=== PATIENT | male | born 1960 | race Caucasian/White ===

== ENCOUNTER 2019-11-02 11:08 | Outpatient (CLI) | payer BC, SELFPAY ==
--- NOTE | 2019-11-02 11:00 | US_ITS ---
WS: [id number] Complete ABDOMINAL ULTRASOUND HISTORY: abdominal pain COMPARISON: None available. Liver: 22.3 cm in length. Markedly enlarged liver with heterogeneity. Moderate dilatation of the intr ahepatic ducts. Very poorly visualized entire liver. Gallbladder: Normally distended gallbladder. Gallbladder transverse diameter 5.5 cm. Small stones are present in the gallbladder but best seen on real-time imaging. Gallbladder wall thickness: 2.7 mm. Pancreas: Not visualized. CBD: 8.0 mm. Right kidney: 10.2 cm x 5.5 cm x 5.9 cm. No mass, cortical thickening or hydronephrosis. Left kidney: 11.6 cm x 6.4 cm x 4.7 cm. No mass, cortical thickening or hydronephrosis. Spleen: Spleen is top normal size at 12.4 cm in length. Abdominal aorta and IVC are within normal limits. No ascites. Notified ALYSON Braden at 11/02/2019 3:41 PM. US/US abdomen complete* [id number] IMPRESSION: 1. Intrahepatic and extra hepatic bile duct dilatation. 2. Cholelithiasis. Mild gallbladder hydrops. 3. Suspect choledocholithiasis. Recommend MRCP or ERCP. CT abdomen and pelvis will also be helpful to better evaluate the pancreatic head for possible mass.
== END 2019-11-02 11:09 | disposition home or self-care (01) ==
LOC: RAD 11:11
PROVIDERS: PCP Nurse Practitioner; Visit Provider Nurse Practitioner
DX: K80.20 Calculus of gallbladder without cholecystitis without obstruction (principal); K83.8 Other specified diseases of biliary tract
CPT/HCPCS: 36415; 76700; 80053; 80074; 82105; 82150; 83690; 85025

== ENCOUNTER 2019-11-02 21:20 | Emergency (ER) | payer BC, SELFPAY ==
[2019-11-02 21:47] VITALS: BP 124/91; PULSE 92; RESP 19; TEMP 37.1; O2SAT 97; BMI 40.0
--- NOTE | 2019-11-02 22:02 | ED_ITS ---
Entered by Adelita Mcclelland, acting as scribe for Billie Wilkins Nov 02, 2019 21:20 HPI - General Adult General: Chief complaint: General Medical Stated complaint: SENT BY DR WILLIS Time Seen by Provider: 11/02/19 22:03 Source: patient Mode of arrival: ambulatory Limitations: no limitations History of Present Illness: HPI narrative: 59 yo pt came to the er per . Pt states that Dr called and told him to get to the hospital. Pt states that he had an ultrasound for the gallbladder and liver. Patient's had this problem coming up over the past few days. He has been jaundiced at times to the family. He had an outpatient ultrasound which was abnormal and was referred here to the ER. The patient is been referred to Dr. Willis but has not yet seen him. MD complaint: abnormal ultrasound Associated symptoms: Reports nausea; Deny chest pain, confusion, diaphoresis, dyspnea, headache(s), malaise, rash, palpitations, syncope or vomiting Review of Systems General: Reports: other (negative unless marked) Const: Denies: fever, chills, body aches, fatigue, malaise or diaphoresis Eyes: Denies: change in vision or blurry vision ENMT: Denies: throat pain, painful swallowing, hoarseness, ear pain, ear discharge, Change in hearing or nasal discharge Card: Denies: chest pain, palpitations, irregular heart rhythm, syncope, pre- syncope, shortness of breath on exertion or shortness of breath when lying down Resp: Denies: shortness of breath, productive cough, non-productive cough, wheezing, coughing up blood or chest congestion GI: Reports: abdominal pain and nausea; Denies: vomiting, vomiting blood, coffee grounds in vomit, diarrhea, constipation, cramping, blood in stool or black tarry stool : Denies: flank pain, difficulty urinating, painful urination, urinary frequency, urinary urgency, decreased urine ouput, urinary incontinence or blood in urine Musc: Denies: neck pain, back pain, extremity pain, extremity swelling, joint pain, joint swelling, joint warmth or joint stiffness Skin/Breast: Denies: rash, skin tenderness or yellow skin Neuro: Denies: headache, numbness in extremities, weakness in extremities, changes in sensation, lack of coordination, difficulty walking, dizziness, vertigo or confusion Endo: Denies: excessive thirst, tired all the time, cold intolerance, excessive sweating, flushing or hot flashes Judd/Lymph: Denies: easy bruising, easy bleeding, petechiae or enlarged lymph nodes All/Imm: Denies: hives, throat swelling, tongue swelling, facial swelling or acute wheezing PFSH ED PFSH: Statuses (acute, chronic, etc) shown below reflect problem list status as previously entered and may not be historically accurate Social History Smoking and tobacco status: never smoked Second hand smoke exposure: No Alcohol intake: never Desire information about alcohol rehabilitation?: No Counseling given: No Desire information about substance/drug rehabilitation?: No Counseling given: No Physical Exam Const: COMMON NORMALS: no apparent distress, oriented x3, no limitations, healthy appearing and well nourished EXAM LIMITATIONS: no altered mental status GENERAL APPEARANCE: cooperative, well kempt and well developed ORIENTATION/CONSCIOUSNESS: Yes awake HENMT: COMMON NORMALS: normocephalic, head/scalp atraumatic, hearing grossly normal bilaterally, external ears normal, EAC's normal, external nose normal and moist oral mucous membranes HEAD & SCALP: normal to inspection, normocephalic and atraumatic FACE & SINUS: normal facial exam and face symmetric NOSE: external nose normal and nares normal EXTERNAL EAR: Yes external ears normal EXTERNAL AUDITORY CANAL: EAC's normal MOUTH: oral and palatal mucosa normal and tongue normal Eye: COMMON NORMALS: PERRL, EOMs intact bilaterally, conjunctivae normal and no scleral icterus GENERAL EYE: normal appearance of both eyes and normal light reflex CONJUNCTIVA: Yes conjunctivae normal SCLERA: sclera abnormal Laterality of scleral abnormality: positive bilateral scleral icterus CORNEA: Yes corneas normal PUPIL: Yes PERRL DIRECT OPHTHALMOSCOPY: Yes normal light reflex Neck/C-Spine: COMMON NORMALS: full ROM, no lymphadenopathy, supple, no meningeal signs and no JVD GENERAL: Yes normal visual inspection and Yes trachea midline CERVICAL SPINE: Yes cervical ROM normal Chest: COMMONS NORMALS: inspection of chest normal and palpation of chest normal Resp: COMMON NORMALS: normal respiratory effort, no retractions, no use of accessory muscles and clear to auscultation bilaterally EFFORT & INSPECTION: Yes able to speak in complete sentences AUSCULTATION: clear to auscultation bilaterally Cardio: COMMON NORMALS: no JVD, regular rate, regular rhythm, S1 normal heart sound, S2 normal heart sound, no gallops, no clicks, no murmurs and no rub JUGULAR VENOUS DISTENTION: no JVD RATE: regular rate RHYTHM: regular rhythm HEART SOUNDS: S1 normal and S2 normal GI: COMMON NORMALS: soft to palpation and no masses PALPATION: Yes soft and Yes tender Details: RUQ (Mild without rebound or guarding) : COMMON NORMALS: Yes no CVA tenderness BLADDER/KIDNEY EXAM: Yes no CVA tenderness Back/Pelvis: COMMON NORMALS: no CVA tenderness, thoracic and lumbar spine normal to inspection, no thoracic nor lumbar tenderness and thoraco-lumbar ROM normal Extremity: COMMON NORMALS: normal to inspection, full ROM, normal capillary refill, no joint enlargement, no clubbing, cyanosis or edema and no calf tenderness Neuro: COMMON NORMALS: oriented x3, CN's II-XII intact bilaterally, moves all extremities, no focal motor deficits and no sensory deficits noted MENINGEAL SIGNS: Yes no meningeal signs Psych: COMMON NORMALS: mental status grossly normal, thought process normal, cooperative, affect normal, speech normal and activity/motor behavior normal APPEARANCE: Yes well kempt SPEECH: Yes normal speech THOUGHT PROCESS: normal thought process Skin: COMMON NORMALS: no rashes or lesions noted, skin turgor normal, no jaundice, no petechiae and no mottling GENERAL SKIN EXAM: no rashes or lesions noted and turgor normal Course Vital Signs: Vital signs: Vital Signs Temperature 98.7 F 11/02/19 21:47 Pulse Rate 75 11/03/19 01:00 Respiratory Rate 15 11/03/19 01:00 Blood Pressure 118/83 11/03/19 01:00 Pulse Oximetry 96 11/03/19 01:00 MDM - General Adult MDM Narrative: Medical decision making narrative: The case was reviewed with Dr. Willis. He agrees based upon the patient's ultrasound and CT report he will likely need an ERCP and an MRCP is only going to delay that definitive procedure. He recommends transfer. I discussed this with the patient and he would like to go to [facility]. I reviewed the case with Dr. Winter who agrees to accept the patient in transfer. We have covered the patient with Zosyn to prevent ascending cholangitis. He has been hemodynamically stable and we will transfer him. Lab Data: Attestation: I reviewed the patient's lab results. Labs: Lab Results 11/02/19 11/02/19 11/02/19 Range/Units 22:30 22:30 22:30 WBC 7.8 (4.0-10.0) 10^3/ uL RBC 4.06 L (4.1-5.3) 10^6/u L Hgb 12.6 (11.7-16.6) g/dL Hct 36.3 L (42.0-52.0) % MCV 89.4 D (80-94) fL MCH 31.0 (28.0-34.0) pg MCHC 34.7 (30.0-36.0) g/dL RDW 17.2 H (12.1-15.1) % Plt Count 303 (130-400) 10^3/c mm MPV 11.4 H (7.4-10.4) fL Neut % (Auto) 75.9 % Lymph % (Auto) 13.5 % [place] % (Auto) 8.3 % Eos % (Auto) 1.2 % Baso % (Auto) 0.5 % Neut # (Auto) 5.9 (1.8-7.7) 10^3/u L Lymph # (Auto) 1.1 (0.8-4.8) 10^3/u L [place] # (Auto) 0.6 (0.2-0.9) 10^3/u L Eos # (Auto) 0.1 (0.0-0.8) 10^3/u L Baso # (Auto) 0.0 (0.0-0.1) 10^3/u L Nucleated RBC % (a uto) 0 % Nucleated RBCs # 0.0 /100WBC PT 19.90 H (10.5-13.3) SECO NDS INR 1.63 H (0.8-1.2) APTT 38.5 H (23.9-36.7) SECO NDS Sodium 135 L (136-145) mmol/L Potassium 3.6 (3.5-5.1) mmol/L Chloride 100 (98-107) mmol/L Carbon Dioxide 22 (22-29) mmol/L Anion Gap 16.6 (5-19) BUN 19 (8-23) mg/dL Creatinine 0.5 L (0.7-1.2) mg/dL GFR Calculation 169.0 H (90-130) mL/min Glucose 238 H (74-106) mg/dL Lactic Acid (0.5-2.2) mmol/L Calcium 9.7 (8.5-10.5) mg/dL Magnesium 2.3 (1.7-2.3) mg/dL Total Bilirubin 13.4 H* (0.15-1.2) mg/dL AST 98 H (0-40) U/L ALT 105 H (0-41) U/L Alkaline Phosphata se 257 H (40-130) IU/L Total Protein 6.6 (6.6-8.7) g/dL Albumin 3.3 L (3.5-5.2) g/dL Globulin 3.3 (1.3-4.6) g/dL Lipase 146 H (13-60) U/L Ethyl Alcohol < 10 (0-10) mg/dL 11/02/19 Range/Units 22:30 WBC (4.0-10.0) 10^3/ uL RBC (4.1-5.3) 10^6/u L Hgb (11.7-16.6) g/dL Hct (42.0-52.0) % MCV (80-94) fL MCH (28.0-34.0) pg MCHC (30.0-36.0) g/dL RDW (12.1-15.1) % Plt Count (130-400) 10^3/c mm MPV (7.4-10.4) fL Neut % (Auto) % Lymph % (Auto) % [place] % (Auto) % Eos % (Auto) % Baso % (Auto) % Neut # (Auto) (1.8-7.7) 10^3/u L Lymph # (Auto) (0.8-4.8) 10^3/u L [place] # (Auto) (0.2-0.9) 10^3/u L Eos # (Auto) (0.0-0.8) 10^3/u L Baso # (Auto) (0.0-0.1) 10^3/u L Nucleated RBC % (a uto) % Nucleated RBCs # /100WBC PT (10.5-13.3) SECO NDS INR (0.8-1.2) APTT (23.9-36.7) SECO NDS Sodium (136-145) mmol/L Potassium (3.5-5.1) mmol/L Chloride (98-107) mmol/L Carbon Dioxide (22-29) mmol/L Anion Gap (5-19) BUN (8-23) mg/dL Creatinine (0.7-1.2) mg/dL GFR Calculation (90-130) mL/min Glucose (74-106) mg/dL Lactic Acid 1.7 (0.5-2.2) mmol/L Calcium (8.5-10.5) mg/dL Magnesium (1.7-2.3) mg/dL Total Bilirubin (0.15-1.2) mg/dL AST (0-40) U/L ALT (0-41) U/L Alkaline Phosphata se (40-130) IU/L Total Protein (6.6-8.7) g/dL Albumin (3.5-5.2) g/dL Globulin (1.3-4.6) g/dL Lipase (13-60) U/L Ethyl Alcohol (0-10) mg/dL Imaging Data^: CXR: My impression: No acute cardiopulmonary findings. CT Abd/Pel: Radiologist's impression: [place] [address] CT Scan Report Signed Patient: Gavino Ingram Unit #: [id number] : 1960 Age/Sex: 59 / M ADM Date: 11/02/19 Loc: ER Room/Bed: Attending Dr: Ordering Provider/Ordering MD: Billie Wilkins DO Date of Service: 11/02/19 Procedure(s): CT abdomen pelvis w con* [id number] Accession Number(s): [id number] Report Number: [id number] PROCEDURE INFORMATION: Exam: CT Abdomen And Pelvis With Contrast Exam date and time: 11/02/2019 10:13 PM Age: 59 years old Clinical indication: Patient HX: Jaundice, diarrhea x2 wks, gb difficulties; Additional info: Abdominal pain TECHNIQUE: Imaging protocol: Computed tomography of the abdomen and pelvis with intravenous contrast. Total DLP: 1971.27 mGy-cm Radiation optimization: All CT scans at this facility use at least one of these dose optimization techniques: automated exposure control; mA and/or kV adjustment per patient size (includes targeted exams where dose is matched to clinical indication); or iterative reconstruction. Contrast material: OMNIPAQUE 300; Contrast volume: 95 ml; Contrast route: IV; COMPARISON: US abdomen complete* [id number] 11/02/2019 11:19 AM FINDINGS: Liver: Normal. No mass. Gallbladder and bile ducts: Significant dilatation of the intrahepatic biliary tree. The common hepatic duct is dilated up to 15 mm but tapers abruptly at the junction with the common bile duct. The common bile duct is completely decompressed. The cause of obstruction is not clearly evident. This would suggest an occult mass or stricture. The gallbladder is distended but without visible stones or wall thickening. Pancreas: Normal. No ductal dilation. Spleen: Normal. No splenomegaly. Adrenals: Normal. No mass. Kidneys and ureters: Normal. No hydronephrosis. Stomach and bowel: Unremarkable. No obstruction. No mucosal thickening. Appendix: No evidence of appendicitis. Intraperitoneal space: Unremarkable. No free air. No significant fluid collection. Vasculature: Unremarkable. No abdominal aortic aneurysm. Lymph nodes: There are several mildly enlarged portacaval lymph nodes up to 2 cm. No retroperitoneal adenopathy. Bladder: Unremarkable as visualized. Reproductive: Unremarkable as visualized. Bones/joints: Chronic lumbar degenerative disc disease at L3-L4 with mild central stenosis. Soft tissues: Unremarkable. CT/CT abdomen pelvis w con* [id number] IMPRESSION: Significantly dilated biliary tree and common hepatic duct. Transition at the common hepatic-common bile duct junction. Although the cause of obstruction is not directly seen the primary considerations would be a stricture or occult mass. Recommend ERCP for further evaluation. Radiation Dose CTDIVOL = (mGy): DLP = 1971.27 (mGy-cm) Dictated By: Tamara Gan MD Signed By: Tamara Gan MD Signed Date/Time: 11/02/192336 DD/ 34 Discharge Plan Discharge Patient Disposition: Xfer Short-Term Hosp Clinical Impression: Jaundice Condition: Stable Referrals: Fair,Pratima, REFERENCE LIBRARIAN [Primary Care Provider] - Coding Level of Care Code ED Outbound Supervisor for Chg Fwd The documentation recorded by the Stas manley Stephanie Lyn, accurately reflects the service I personally performed and the decisions made by , Billie Wilkins Nov 02, 2019 21:20
--- NOTE | 2019-11-02 22:03 | PC.NURSE ---
pt was called and told to come to the ED tonight after he had an abd ultrasound and bloodwork. He appears jaundiced, his states he is less yellow than normal
[2019-11-02 22:06] VITALS: BP 115/72; PULSE 81; RESP 19; O2SAT 96
--- NOTE | 2019-11-02 22:11 | CTR_ITS ---
PROCEDURE INFORMATION: Exam: CT Abdomen And Pelvis With Contrast Exam date and time: 11/02/2019 10:13 PM Age: 59 years old Clinical indication: Patient HX: Jaundice, diarrhea x2 wks, gb difficulties; Additional info: Abdominal pain TECHNIQUE: Imaging protocol: Computed tomography of the abdomen and pelvis with intravenous contrast. Total DLP: 1971.27 mGy-cm Radiation optimization: All CT scans at this facility use at least one of these dose optimization techniques: automated exposure control; mA and/or kV adjustment per patient size (includes targeted exams where dose is matched to clinical indication); or iterative reconstruction. Contrast material: OMNIPAQUE 300; Contrast volume: 95 ml; Contrast route: IV; COMPARISON: US abdomen complete* [id number] 11/02/2019 11:19 AM FINDINGS: Liver: Normal. No mass. Gallbladder and bile ducts: Significant dilatation of the intrahepatic biliary tree. The common hepatic duct is dilated up to 15 mm but tapers abruptly at the junction with the common bile duct. The common bile duct is completely decompressed. The cause of obstruction is not clearly evident. This would suggest an occult mass or stricture. The gallbladder is distended but without visible stones or wall thickening. Pancreas: Normal. No ductal dilation. Spleen: Normal. No splenomegaly. Adrenals: Normal. No mass. Kidneys and ureters: Normal. No hydronephrosis. Stomach and bowel: Unremarkable. No obstruction. No mucosal thickening. Appendix: No evidence of appendicitis. Intraperitoneal space: Unremarkable. No free air. No significant fluid collection. Vasculature: Unremarkable. No abdominal aortic aneurysm. Lymph nodes: There are several mildly enlarged portacaval lymph nodes up to 2 cm. No retroperitoneal adenopathy. Bladder: Unremarkable as visualized. Reproductive: Unremarkable as visualized. Bones/joints: Chronic lumbar degenerative disc disease at L3-L4 with mild central stenosis. Soft tissues: Unremarkable. CT/CT abdomen pelvis w con* [id number] IMPRESSION: Significantly dilated biliary tree and common hepatic duct. Transition at the common hepatic-common bile duct junction. Although the cause of obstruction is not directly seen the primary considerations would be a stricture or occult mass. Recommend ERCP for further evaluation. Radiation Dose CTDIVOL = (mGy): DLP = 1971.27 (mGy-cm)
--- NOTE | 2019-11-02 22:12 | ECG_ITS ---
Measurements Intervals [place] Rate: 79 P: 9 LA: 156 QRS: 10 QRSD: 105 T: 23 QT: 382 QTc: 440 SINUS RHYTHM No previous ECG available for comparison Electronically Signed On 11-03-2019 16:17:29 ELL TUTOR by Boyd Toney M.D. [email or web address]
--- NOTE | 2019-11-02 22:12 | XR_ITS ---
WS: [id number] PORTABLE CHEST HISTORY: cough COMPARISON: None available. Lungs are clear and well expanded. No pleural effusion or pneumothorax. Cardiac size: Normal. Mediastinum/Aorta: Normal mediastinum. No osseous abnormality seen. XR/XR chest 1V portable [id number] IMPRESSION: Unremarkable portable chest.
[2019-11-02 22:30] VITALS: BP 115/72; PULSE 79; RESP 24; O2SAT 97
[2019-11-02] MEDS: sodium chloride 0.9% 1,000 ML 100 ML IV (22:38)
[2019-11-02] MEDS: ondansetron 2 mg/ML SDV 2 mL 4 MG IVP (22:38)
[2019-11-02] MEDS: iohexol 300 mg/mL 100 mL Btl IV (22:44)
[2019-11-02 22:55] LABS: INR 1.63 (0.8-1.2)
[2019-11-02 22:56] LABS: Partial Thromboplastin Time 38.5 SECONDS (23.9-36.7)
[2019-11-02 23:00] VITALS: BP 106/79
[2019-11-02 23:06] LABS: Alanine Aminotransferase 105 U/L (0-41); Albumin Level 3.3 g/dL (3.5-5.2); Alkaline Phosphatase 257 IU/L (40-130); Anion Gap 16.6 (5-19); Aspartate Amino Transferase 98 U/L (0-40); Blood Urea Nitrogen 19 mg/dL (8-23); Calcium 9.7 mg/dL (8.5-10.5); Carbon Dioxide 22 mmol/L (22-29); Chloride 100 mmol/L (98-107); Globulin 3.3 g/dL (1.3-4.6); Glucose 238 mg/dL (74-106); Lipase 146 U/L (13-60); Magnesium 2.3 mg/dL (1.7-2.3); Potassium 3.6 mmol/L (3.5-5.1); Sodium 135 mmol/L (136-145); Total Protein 6.6 g/dL (6.6-8.7)
[2019-11-02 23:08] LABS: Lactic Sepsis W/Reflex 1.7 mmol/L (0.5-2.2)
[2019-11-02 23:10] LABS: Basophils % 0.5 %; Eosinophils # 0.1 10^3/uL (0.0-0.8); Eosinophils % 1.2 %; Hematocrit 36.3 % (42.0-52.0); Hemoglobin 12.6 g/dL (11.7-16.6); Lymphocytes # 1.1 10^3/uL (0.8-4.8); Lymphocytes % 13.5 %; Mean Corpuscular HGB Conc 34.7 g/dL (30.0-36.0); Mean Corpuscular Volume 89.4 fL (80-94); Mean Platelet Volume 11.4 fL (7.4-10.4); Monocytes # 0.6 10^3/uL (0.2-0.9); Monocytes % 8.3 %; Neutrophils # 5.9 10^3/uL (1.8-7.7); Neutrophils % 75.9 %; Nucleated Red Blood Cells % 0 %; Platelet Count 303 10^3/cmm (130-400); Red Blood Count 4.06 10^6/uL (4.1-5.3); Red Cell Distribution Width 17.2 % (12.1-15.1); White Blood Count 7.8 10^3/uL (4.0-10.0)
[2019-11-02 23:14] LABS: Alcohol Level < 10 mg/dL (0-10)
[2019-11-02 23:16] LABS: Total Bilirubin 13.4 mg/dL (0.15-1.2)
[2019-11-02 23:30] VITALS: BP 125/71; PULSE 75; RESP 16; O2SAT 97
[2019-11-03] VITALS: BP 119/80; PULSE 78; RESP 15; O2SAT 97
[2019-11-03] MEDS: piperacillin-tazobactam 3.375 GM in sodium chloride 0.9% (plus) 50 ML IV (00:22)
[2019-11-03 00:30] VITALS: BP 125/81; PULSE 77; RESP 20; O2SAT 97
[2019-11-03 01:00] VITALS: BP 118/83; PULSE 75; RESP 15; O2SAT 96
[2019-11-03 01:53] LABS: Bilirubin Urine 3+ (NEGATIVE); Blood Urine Trace (Negative); Glucose Urine UA Norm (Normal); Ketones Urine Negative (Negative); Leukocyte Esterase Urine Negative (Negative); Nitrate Urine Negative (Negative); Protein Urine Trace (Negative); RBC Urine 0-4 /hpf (0-2); Specific Gravity, Urine 1.015 (1.005-1.030); Urine Appearance Clear (CLEAR); Urine Color Yellow (Yellow); Urobilinogen Urine 4 mg/dL (Negative); pH Urine 5 (5-7)
[2019-11-03 01:54] LABS: Bacteria Urine TRACE; Squamous Epithelial Cell Urine 15-25 (0-5)
[2019-11-03 01:55] LABS: Add Urine Culture? No
[2019-11-03 01:56] VITALS: BP 125/80; PULSE 77; RESP 16; O2SAT 97
== END 2019-11-03 03:00 | disposition short-term general hospital (02) ==
PROVIDERS: Emergency Provider Emergency Medicine; PCP Nurse Practitioner
DX: R17 Unspecified jaundice (principal)
CPT/HCPCS: 36415; 71045; 74177; 80053; 80307; 81001; 83605; 83690; 83735; 85025; 85610; 85730; 87040; 93005; 96374; 99282; J2405; J2543; J7030; Q9967

== ENCOUNTER → 2019-11-25 11:47 | Outpatient (BNVA) | payer BC, SELFPAY | PROVIDERS: PCP Nurse Practitioner; Visit Provider Nurse Practitioner | DX: K83.1 Obstruction of bile duct (principal) | CPT/HCPCS: 80076 ==

== ENCOUNTER 2019-12-16 09:43 | Outpatient (CLI) | payer BC, SELFPAY ==
--- NOTE | 2019-12-17 18:03 | ONC CON_ITS ---
Dr. Solano New Patient Note Patient: Gavino Ingram Unit #: [id number]: 1960 Dicatated By: Royal Solano M.D.Date of Visit: Dec 16, 2019 Onc MED New Patient/Consult Referring Physician: Dr. Hipolito Yeh M.D. Chief Complaint: Pancreatic cancer. History of Present Illness: This is a 59 year-old man with recently diagnosed pancreatic adenocarcinoma. By clinical evaluation, his disease appears to be stage IIB (T2, N1, M0). He has been in good general health. On 11/02/2019 he presented to the emergency room with jaundice. His total bilirubin at that time was 13.4 mg/dL. The liver enzymes were moderately elevated with alkaline phosphatase 257/130 IU/L, SGOT 98/40 U/L and SGPT 105/41 U/L. Abdominal CT scan showed significantly dilated biliary tree and common hepatic duct with a transition point at the common hepatic-common bile duct junction. The findings were suspicious for underlying stricture or occult mass. There were several mildly enlarged portacaval lymph nodes measuring up to 2 cm. He was transferred to [facility] for admission. On 11/03/2019 he underwent ERCP with placement of biliary stent. He was noted to have a malignant appearing stricture in the mid common bile duct, suspicious for pancreatic neoplasm. On 12/01/2019 he underwent repeat ERCP with placement of partially covered metal stent, and he underwent endoscopic ultrasound with FNA biopsy of a 3.5 x 2.7 cm mass lesion involving the head of the pancreas. The mass was noted to be in close proximity to the vessels but without overt infiltration. There was no celiac axis adenopathy appreciated. Cytology on the FNA biopsy was positive for adenocarcinoma. Staging CT scans of the chest, abdomen, and pelvis on 12/09/2019 showed multiple small bilateral noncalcified pulmonary nodules ranging in size from 2 to 4 mm. There was no evidence of metastatic involvement in the liver. A rounded focus surrounding the pancreatic head measuring 2.9 x 3.6 cm, including adjacent inflammatory changes, was noted to partially obscure a 3 x 1.7 cm pancreatic head mass which had been noted on the preoperative study. Also noted was a necrotic appearing mass/lymph node within the pancreatic head measuring 1.9 cm. A mildly prominent gastrohepatic lymph node measured 1.5 cm. There was no mesenteric adenopathy noted. He was seen by Dr. Davidson for surgical consultation, and then underwent placement of Port-A-Cath venous access device in preparation for neoadjuvant chemotherapy. He says he is still doing okay, though he has had decline in his energy and activity tolerance, and he has not been able to work. His ECOG score is 1. He still has good appetite, but he has had weight loss in the range of 40 pounds. He has not had fever. He has occasional sweating at night. He has a nasal drip, for which he recently started using a nasal spray. He says his voice is always rough, but that has been going on for very long time. His breathing has been okay. He does not complain of shortness of breath, cough, or chest pain. He has felt much better generally following placement of the biliary stent. He currently is not having any nausea. He had acid reflux symptoms but those are well controlled with medication. Bowel function has been adequate with a stool softener. Bladder function has been pretty good. He has no significant joint or bone pain. He does not complain of headache. He has occasional orthostatic lightheadedness. He has no focal neurologic symptoms. Past Medical History: His medical history includes allergic rhinitis and hypertension. He has a history of peptic ulcer disease. Past Surgical History: He underwent ERCP with biliary stent placement on 11/03/2019, and he underwent ERCP with placement of metal stent and with EUS/FNA biopsy of pancreatic head mass on 12/01/2019. He also underwent placement of portacath venous access device. Medications: Famotidine 1 Tablet (of 40 mg) Oral daily, Fluticasone Furoate Aerosol Powder, Breath Activated Inhalation, Lisinopril 1 Tablet (of 40 mg) Oral daily Allergies: No Known Allergies. Social History: Mr. 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 He had smoked a little as a teenager, but none since then. He had some heavy alcohol use in the past, but he quit drinking 40 years ago. Family History: Father at age 83 with complications of diabetes. Mother of stroke at age 85. She also had diabetes and she has been treated for breast cancer. A brother and a sister are in good health. Review Of Symptoms: Constitutional - His energy level is lower than his normal. He is able to do some outside work. Appetite is good, but he has had a weight loss in the range of 40 lbs. No fever, chills, hot flashes, or night sweats. ECOG score is 1, Eyes - No change in vision, ENMT - No hearing loss or tinnitus. He has chronic sinus congestion/drainage which seems to be improved with the use of a OTC nasal spray. No mouth sores. No sore throat or difficulty swallowing, Hematologic/Lymphatic - No abnormal bruising or bleeding, Respiratory - He had shortness of breath prior to having biliary stent place, but none at present. No cough. No pleuritic pain or hemoptysis, Cardiovascular - No angina pain. No palpitations, Gastrointestinal - No nausea or vomiting. He has heartburn that is well controlled with famotidine. No diarrhea. He has some constipation for which he takes a stool softner. No blood in the stool or black stools, Genitourinary (M) - No dysuria or hematuria. No urinary frequency. No urgency or incontinence, Musculoskeletal - No joint or bone pain, Integumentary - No skin complications, Neurologic - No headache. He occasionally gets dizzy if he stands up to quickly. No numbness/paresthesias or other focal neurologic symptoms, Psychiatric - No anxiety or depression. No insomnia. Vital Signs: Performed on Dec 16, 2019 10:59: 0, 39.58 (HIGH), 2.45 sq.m, 71 in, 99 %, 72 /min, 18 /min, 148/87 mm(hg) (HIGH), 98.6 F, and 283.8 lbs (HIGH). Physical Examination: Constitutional - He appears to be in good general health, Eyes - Sclerae nonicteric. Conjunctivae clear, ENMT - No lesions noted in the oral cavity, Neck - No mass or thyromegaly, Hematologic/Lymphatic - No cervical, clavicular, or axillary adenopathy, Respiratory - Lungs are clear with good air movement bilaterally, Cardiovascular - Heart rythm is regular. There is no murmur, gallop, or rub noted, Abdomen - Soft and non-tender. Liver and spleen are not enlarged. There is no abdominal mass or ascites noted and there is no inguinal adenopathy, Back/Spine - No spine or CVA tenderness noted, Extremities - No edema. Pedal pulses are palpable bilaterally, Integumentary - No rashes. No suspicious skin lesions noted, Neurologic - No focal neurologic deficits noted. Impression: 1. Patient with adenocarcinoma of the head of the pancreas. By clinical evaluation his disease appears to be stage IIB (T2, N1, M0). 2. He underwent ERCP with placement of biliary stent on 11/03/2019, and on 12/01/2019 he underwent repeat ERCP with placement of partially covered metal stent and endoscopic ultrasound with FNA biopsy of pancreatic head mass. 3. There is CT evidence of multiple small noncalcified pulmonary nodules bilaterally, ranging in size from 2 to 4 mm. These are nonspecific, but early metastatic disease is not excluded. 4. He has a positive family history of breast cancer affecting his mother. His other medical illnesses include: 5. Hypertension. 6. Allergic rhinitis. 7. GERD and history of peptic ulcer disease. Plan: The ERCP/ultrasound findings and the CT findings were reviewed with the patient. We discussed the cytology results and the clinical implications. He has adenocarcinoma involving the head of the pancreas. The primary lesion appeared to be in close proximity to vessels, but without evidence of overt invasion. There is likely lymph node involvement. The pulmonary nodules are too small to characterize and at this point would be considered indeterminate, but early metastatic disease is not excluded. He would otherwise appear to have stage IIB disease, which would potentially be operable. He has been recommended to undergo neoadjuvant chemotherapy. As he is young and generally fit, he is an appropriate candidate for the FOLFIRINOX chemotherapy regimen. I reviewed the fact that this is very strong chemotherapy treatment and that it can be associated with severe toxicities. Expected side effects may include nausea/vomiting, diarrhea, mucositis, alopecia, fatigue, low blood counts, and neuropathy, among others. We also discussed the fact that the response rates with this regimen are significantly improved compared to other available chemotherapy regimens. Given that information he is willing to proceed with treatment as recommended, and I will plan to have him return to begin cycle 1 soon as we have verified insurance coverage. In the meantime, I would like to schedule a staging PET/CT, though we did discuss the fact that these pulmonary nodules will be too small to characterize by PET. In addition, with a positive family history for breast cancer, he will be appropriate for BRCA testing. Signed By: Royal Solano M.D. <<Signature on File>>
== END 2019-12-16 09:44 | disposition home or self-care (01) ==
LOC: ONCMED 09:45
PROVIDERS: PCP Nurse Practitioner; Referring Provider Internal Medicine Gastroenterology; Visit Provider Internal Medicine Medical Oncology
DX: C25.0 Malignant neoplasm of head of pancreas (principal); I10 Essential (primary) hypertension; Z87.11 Personal history of peptic ulcer disease; Z96.89 Presence of other specified functional implants; Z80.3 Family history of malignant neoplasm of breast
CPT/HCPCS: 99205

== ENCOUNTER 2020-01-05 06:38 | Outpatient (RCR) | payer BC, SELFPAY ==
[2019-12-29 08:56] LABS: Basophils % 0.7 %; Eosinophils # 0.3 10^3/uL (0.0-0.8); Eosinophils % 4.6 %; Hematocrit 40.1 % (42.0-52.0); Hemoglobin 13.3 g/dL (11.7-16.6); Lymphocytes # 1.6 10^3/uL (0.8-4.8); Lymphocytes % 29.9 %; Mean Corpuscular HGB Conc 33.2 g/dL (30.0-36.0); Mean Corpuscular Hemoglobin 31.3 pg (28.0-34.0); Mean Corpuscular Volume 94.4 fL (80-94); Mean Platelet Volume 9.6 fL (7.4-10.4); Monocytes # 0.5 10^3/uL (0.2-0.9); Monocytes % 9.5 %; Neutrophils % 55.3 %; Nucleated Red Blood Cells % 0 %; Platelet Count 221 10^3/cmm (130-400); Red Blood Count 4.25 10^6/uL (4.1-5.3); Red Cell Distribution Width 13.2 % (12.1-15.1); White Blood Count 5.5 10^3/uL (4.0-10.0)
[2019-12-29 09:21] LABS: Carcinoembryonic Antigen 1.2 ng/mL (0.0-4.7)
[2019-12-29 09:22] LABS: Cancer Antigen 19 9 339.2 U/mL (0-35)
[2019-12-29 09:33] LABS: Alanine Aminotransferase 26 U/L (0-41); Albumin Level 3.7 g/dL (3.5-5.2); Alkaline Phosphatase 76 IU/L (40-130); Anion Gap 15.1 (5-19); Aspartate Amino Transferase 18 U/L (0-40); Blood Urea Nitrogen 11 mg/dL (8-23); Calcium 9.5 mg/dL (8.5-10.5); Carbon Dioxide 22 mmol/L (22-29); Chloride 103 mmol/L (98-107); Globulin 3.4 g/dL (1.3-4.6); Glomerular Filtration Rate 114.6 mL/min (90-130); Glucose 113 mg/dL (65-115); Osmolality Calculated 279 mOsm/kg (285-295); Potassium 4.1 mmol/L (3.5-5.1); Sodium 136 mmol/L (136-145); Total Bilirubin 0.5 mg/dL (0.15-1.2); Total Protein 7.1 g/dL (6.6-8.7)
[2019-12-29] MEDS: dextrose 5% 250 ML 75 ML IV (10:48)
[2020-01-04 18:17] LABS: Alanine Aminotransferase 26 U/L (0-41); Albumin Level 4.1 g/dL (3.5-5.2); Alkaline Phosphatase 78 IU/L (40-130); Anion Gap 19.3 (5-19); Aspartate Amino Transferase 23 U/L (0-40); Blood Urea Nitrogen 15 mg/dL (8-23); Calcium 9.2 mg/dL (8.5-10.5); Carbon Dioxide 22 mmol/L (22-29); Chloride 99 mmol/L (98-107); Globulin 2.7 g/dL (1.3-4.6); Glomerular Filtration Rate 98.3 mL/min (90-130); Glucose 123 mg/dL (65-115); Osmolality Calculated 282 mOsm/kg (285-295); Potassium 3.3 mmol/L (3.5-5.1); Sodium 137 mmol/L (136-145); Total Bilirubin 0.3 mg/dL (0.15-1.2); Total Protein 6.8 g/dL (6.6-8.7)
[2020-01-04 18:26] LABS: Basophils % 0.2 %; Eosinophils # 0.2 10^3/uL (0.0-0.8); Eosinophils % 2.8 %; Hematocrit 43.8 % (42.0-52.0); Hemoglobin 14.5 g/dL (11.7-16.6); Lymphocytes # 1.5 10^3/uL (0.8-4.8); Lymphocytes % 27.8 %; Mean Corpuscular HGB Conc 33.1 g/dL (30.0-36.0); Mean Corpuscular Hemoglobin 31.6 pg (28.0-34.0); Mean Corpuscular Volume 95.4 fL (80-94); Mean Platelet Volume 10.5 fL (7.4-10.4); Monocytes # 0.2 10^3/uL (0.2-0.9); Monocytes % 4.3 %; Neutrophils # 3.5 10^3/uL (1.8-7.7); Neutrophils % 64.7 %; Nucleated Red Blood Cells % 0 %; Platelet Count 223 10^3/cmm (130-400); Red Blood Count 4.59 10^6/uL (4.1-5.3); White Blood Count 5.4 10^3/uL (4.0-10.0)
--- NOTE | 2020-01-06 07:41 | ONC FU_ITS ---
Dr. Solano Patient Follow-Up Note Patient: Gavino Ingram Unit #: [id number]: 1960 Dicatated By: Royal Solano M.D.Date of Visit:Jan 05, 2020 Onc Med Follow-up/Prog Note Chief Complaint: Pancreatic cancer. History of Present Illness: This is a 59 year-old man with adenocarcinoma of the pancreas, by clinical evaluation stage IIB (T2, N1, M0). On 11/02/2019 he presented to the emergency room with jaundice. His total bilirubin at that time was 13.4 mg/dL. The liver enzymes were moderately elevated with alkaline phosphatase 257/130 IU/L, SGOT 98/40 U/L and SGPT 105/41 U/L. Abdominal CT scan showed significantly dilated biliary tree and common hepatic duct with a transition point at the common hepatic-common bile duct junction. The findings were suspicious for underlying stricture or occult mass. There were several mildly enlarged portacaval lymph nodes measuring up to 2 cm. He was transferred to [facility] for admission. On 11/03/2019 he underwent ERCP with placement of biliary stent. He was noted to have a malignant appearing stricture in the mid common bile duct, suspicious for pancreatic neoplasm. On 12/01/2019 he underwent repeat ERCP with placement of partially covered metal stent, and he underwent endoscopic ultrasound with FNA biopsy of a 3.5 x 2.7 cm mass lesion involving the head of the pancreas. The mass was noted to be in close proximity to the vessels but without overt infiltration. There was no celiac axis adenopathy appreciated. Cytology on the FNA biopsy was positive for adenocarcinoma. Staging CT scans of the chest, abdomen, and pelvis on 12/09/2019 showed multiple small bilateral noncalcified pulmonary nodules ranging in size from 2 to 4 mm. There was no evidence of metastatic involvement in the liver. A rounded focus surrounding the pancreatic head measuring 2.9 x 3.6 cm, including adjacent inflammatory changes, was noted to partially obscure a 3 x 1.7 cm pancreatic head mass which had been noted on the preoperative study. Also noted was a necrotic appearing mass/lymph node within the pancreatic head measuring 1.9 cm. A mildly prominent gastrohepatic lymph node measured 1.5 cm. There was no mesenteric adenopathy noted. He was seen by Dr. Davidson for surgical consultation, and then underwent placement of Port-A-Cath venous access device in preparation for neoadjuvant chemotherapy. I had seen him initially on 12/16/2019. As he was generally in good health and had excellent performance status, I had recommended a trial of neoadjuvant chemotherapy with FOLFIRINOX. He began cycle 1 on 12/29/2019. He is seen now for a scheduled follow-up visit. He has not experienced any acute toxicity following the chemotherapy, but he did feel pretty bad for the first 3 to 4 days. His energy was very low, but his beginning to come back now. His stomach felt queasy during that time, though he did not have any vomiting. His appetite still comes and goes. He has a metallic taste, and he says his mouth feels rough. Yesterday he had 3 loose stools, but that seems to have stopped with Imodium. He has not had fever. He has had some sweating. He has had some cough associated with nasal drip. He also had some shortness of breath and pressure in his chest around the second or third day, but that has resolved. He still has some postprandial abdominal pain, but that seems to be easing up. Bladder function has been okay. He has no significant joint or bone pain. He had headache for 1 day, and he has felt a little unsteady. His hands feel like they are on fire, that comes and goes. Medications: Famotidine 1 Tablet (of 40 mg) Oral daily, Fluticasone Furoate Aerosol Powder, Breath Activated Inhalation, Lisinopril 1 Tablet (of 40 mg) Oral daily, LORazepam 0.5 - 1 Tablet (of 1 mg) Oral t.i.d., Prochlorperazine Maleate 1 Tablet (of 10 mg) Oral PRN Allergies: No Known Allergies. Review of Systems: Constitutional - His energy level was pretty low following treatment, but it is starting to improve. He is able to do some light activity. His appetite is poor but he is able to eat. His weight is down 6 pounds. No fever, chills, hot flashes, or night sweats. ECOG score is 2, ENMT - He has some sinus drainage. He has soreness to his mouth. No sore throat or difficulty swallowing, Hematologic/Lymphatic - No abnormal bruising or bleeding, Respiratory - No shortness of breath. He has intermittent cough due to sinus drainage. No pleuritic pain or hemoptysis, Cardiovascular - He had some pressure to his chest 1-2 days following treatment that is resolved today. No palpitations, Gastrointestinal - He had some nausea following treatment that was managed with Compazine. No vomiting. No heartburn or acid reflux. He had some diarrhea yesterday which was controlled with Imodium. No episodes today. No constipation. No blood in the stool or black stools. He has been having left sided abdominal/flank pain, Genitourinary (M) - No dysuria or hematuria. No urinary frequency. No urgency or incontinence, Musculoskeletal - No joint or bone pain, Integumentary - No skin complications, Neurologic - No headache. He is having some dizziness. He is having an intermittent burning sensation to his hands, Psychiatric - No anxiety or depression. No insomnia. Vital Signs: Performed on Jan 05, 2020 09:51 Height - 71.00 in Weight - 277.2 lbs (LOW) BSA - 2.42 sq.m BMI - 38.66 (HIGH) Temperature - 98.7 F Pulse - 82 /min Respiration - 22 /min BP - 125/87 mm(hg) O2 Sat - 99 % Pain - 0 Physical Examination: Constitutional - He looks pretty good generally, Eyes - Sclerae nonicteric. Conjunctivae clear, ENMT - No lesions noted in the oral cavity, Hematologic/Lymphatic - No cervical, clavicular, or axillary adenopathy, Respiratory - Lungs are clear with good air movement bilaterally, Cardiovascular - Heart rhythm is regular. There is no murmur, gallop, or rub noted, Abdomen - Mildly distended but soft. There is slight tenderness in the left mid abdominal area. Liver and spleen are not enlarged. There is no abdominal mass or ascites noted and there is no inguinal adenopathy, Extremities - No edema, Integumentary - No skin eruption, Neurologic - No focal neurologic deficits noted. Lab/Imaging: Test performed on Dec 29, 2019 08:42 Sodium 136 mmol/L Potassium 4.1 mmol/L Chloride 103 mmol/L CO2 22 mmol/L Anion Gap 15.1 BUN 11 mg/dL Creatinine 0.7 mg/dL Cr Clearance (Est) 201.7800 mL/min eGFR 114.6 mL/min Glucose 113 mg/dL Calcium 9.5 mg/dL Protein, Total 7.1 g/dL Albumin 3.7 g/dL Globulin 3.4 g/dL Bilirubin, Total 0.5 mg/dL ALT (SGPT) 26 U/L AST (SGOT) 18 U/L Alkaline Phosphatase 76 IU/L WBC 5.5 10 3/uL RBC 4.25 10 6/uL HGB 13.3 g/dL HCT 40.1 % MCV 94.4 fL MCH 31.3 pg MCHC 33.2 g/dL RDW 13.2 % Platelet Count 221 10 3/cmm MPV 9.6 fL Neutrophils 3.0 10 3/uL Lymphocytes 1.6 10 3/uL Monocytes 0.5 10 3/uL Eosinophils 0.3 10 3/uL Basophils 0.0 10 3/uL Neutrophil % 55.3 % Lymphocyte % 29.9 % Monocyte % 9.5 % Eosinophil % 4.6 % Basophils % 0.7 % CA 19-9 339.2 U/mL CEA 1.2 ng/mL Impression: 1. Patient with adenocarcinoma of the head of the pancreas. By clinical evaluation his disease appears to be stage IIB (T2, N1, M0). 2. He underwent ERCP with placement of biliary stent on 11/03/2019, and on 12/01/2019 he underwent repeat ERCP with placement of partially covered metal stent and endoscopic ultrasound with FNA biopsy of pancreatic head mass. 3. There is CT evidence of multiple small noncalcified pulmonary nodules bilaterally, ranging in size from 2 to 4 mm. These are nonspecific, but early metastatic disease is not excluded. 4. He has a positive family history of breast cancer affecting his mother. His other medical illnesses include: 5. Hypertension. 6. Allergic rhinitis. 7. GERD and history of peptic ulcer disease. He is undergoing a trial of neoadjuvant chemotherapy with FOLFIRINOX. He began cycle 1 on 12/29/2019. Side effects have included fatigue, mild nausea, dysguesia and anorexia. Thus far he has had just mild diarrhea and mild neuropathy. Plan: He will start salt and soda rinses for the sore mouth, and we will be given a prescription for potassium 10 mEq daily. He will scheduled to return in 1 week for his second cycle. I will plan to add a steroid taper with that treatment. Signed By: Royal Solano M.D. <<Signature on File>>
== END 2020-01-05 23:59 | disposition home or self-care (01) ==
LOC: ONCMED 06:38
PROVIDERS: PCP Nurse Practitioner; Visit Provider Internal Medicine Medical Oncology
DX: Z51.11 Encounter for antineoplastic chemotherapy (principal); C25.0 Malignant neoplasm of head of pancreas; Z45.2 Encounter for adjustment and management of vascular access device; R91.8 Other nonspecific abnormal finding of lung field; I10 Essential (primary) hypertension; K21.9 Gastro-esophageal reflux disease without esophagitis; G62.0 Drug-induced polyneuropathy; T45.1X5A Adverse effect of antineoplastic and immunosuppressive drugs, initial encounter; Z79.899 Other long term (current) drug therapy; Z87.11 Personal history of peptic ulcer disease
CPT/HCPCS: 36415; 80053; 82378; 85025; 86301; 96367; 96375; 96411; 96413; 96415; 96416; 96417; 96523; G0463; J0461; J0640; J1100; J1453; J2469; J9190; J9206; J9263

== ENCOUNTER 2020-02-02 06:45 | Outpatient (RCR) | payer BC, SELFPAY ==
[2020-01-11 19:35] LABS: Basophils % 0.2 %; Eosinophils # 0.2 10^3/uL (0.0-0.8); Eosinophils % 4.5 %; Hematocrit 37.1 % (42.0-52.0); Hemoglobin 12.6 g/dL (11.7-16.6); Lymphocytes # 1.7 10^3/uL (0.8-4.8); Lymphocytes % 34.7 %; Mean Corpuscular Hemoglobin 31.4 pg (28.0-34.0); Mean Corpuscular Volume 92.5 fL (80-94); Mean Platelet Volume 10.1 fL (7.4-10.4); Monocytes # 0.4 10^3/uL (0.2-0.9); Monocytes % 8.4 %; Neutrophils # 2.5 10^3/uL (1.8-7.7); Neutrophils % 52.2 %; Nucleated Red Blood Cells % 0 %; Platelet Count 196 10^3/cmm (130-400); Red Blood Count 4.01 10^6/uL (4.1-5.3); Red Cell Distribution Width 13.6 % (12.1-15.1); White Blood Count 4.9 10^3/uL (4.0-10.0)
[2020-01-11 19:50] LABS: Alanine Aminotransferase 43 U/L (0-41); Albumin Level 3.8 g/dL (3.5-5.2); Alkaline Phosphatase 74 IU/L (40-130); Anion Gap 17.1 (5-19); Aspartate Amino Transferase 35 U/L (0-40); Blood Urea Nitrogen 9 mg/dL (8-23); Calcium 9.2 mg/dL (8.5-10.5); Carbon Dioxide 22 mmol/L (22-29); Chloride 106 mmol/L (98-107); Globulin 2.8 g/dL (1.3-4.6); Glomerular Filtration Rate 85.8 mL/min (90-130); Glucose 123 mg/dL (65-115); Osmolality Calculated 291 mOsm/kg (285-295); Potassium 3.1 mmol/L (3.5-5.1); Sodium 142 mmol/L (136-145); Total Bilirubin 0.3 mg/dL (0.15-1.2); Total Protein 6.6 g/dL (6.6-8.7)
[2020-01-12] MEDS: dextrose 5% 250 ML 75 ML IV (10:20)
--- NOTE | 2020-01-12 14:24 | ONC FU_ITS ---
Dr. Solano Patient Follow-Up Note Patient: Gavino Ingram Unit #: [id number]: 1960 Dicatated By: Royal Solano M.D.Date of Visit:Jan 12, 2020 Onc Med Follow-up/Prog Note Chief Complaint: Pancreatic cancer. History of Present Illness: This is a 59 year-old man with adenocarcinoma of the pancreas, by clinical evaluation stage IIB (T2, N1, M0). On 11/02/2019 he presented to the emergency room with jaundice. His total bilirubin at that time was 13.4 mg/dL. The liver enzymes were moderately elevated with alkaline phosphatase 257/130 IU/L, SGOT 98/40 U/L and SGPT 105/41 U/L. Abdominal CT scan showed significantly dilated biliary tree and common hepatic duct with a transition point at the common hepatic-common bile duct junction. The findings were suspicious for underlying stricture or occult mass. There were several mildly enlarged portacaval lymph nodes measuring up to 2 cm. He was transferred to [facility] for admission. On 11/03/2019 he underwent ERCP with placement of biliary stent. He was noted to have a malignant appearing stricture in the mid common bile duct, suspicious for pancreatic neoplasm. On 12/01/2019 he underwent repeat ERCP with placement of partially covered metal stent, and he underwent endoscopic ultrasound with FNA biopsy of a 3.5 x 2.7 cm mass lesion involving the head of the pancreas. The mass was noted to be in close proximity to the vessels but without overt infiltration. There was no celiac axis adenopathy appreciated. Cytology on the FNA biopsy was positive for adenocarcinoma. Staging CT scans of the chest, abdomen, and pelvis on 12/09/2019 showed multiple small bilateral noncalcified pulmonary nodules ranging in size from 2 to 4 mm. There was no evidence of metastatic involvement in the liver. A rounded focus surrounding the pancreatic head measuring 2.9 x 3.6 cm, including adjacent inflammatory changes, was noted to partially obscure a 3 x 1.7 cm pancreatic head mass which had been noted on the preoperative study. Also noted was a necrotic appearing mass/lymph node within the pancreatic head measuring 1.9 cm. A mildly prominent gastrohepatic lymph node measured 1.5 cm. There was no mesenteric adenopathy noted. He was seen by Dr. Davidson for surgical consultation, and then underwent placement of Port-A-Cath venous access device in preparation for neoadjuvant chemotherapy. I had seen him initially on 12/16/2019. As he was generally in good health and had excellent performance status, I had recommended a trial of neoadjuvant chemotherapy with FOLFIRINOX. He began cycle 1 on 12/29/2019. He is seen for a scheduled visit. At his one-week follow-up visit he was significantly fatigued. He also had some nausea and queasiness, but no vomiting. He had just a few loose stools. He had just mild neuropathy. Today he is feeling better. He still has some fatigue, his energy now is pretty good. His ECOG score is 1. He has good appetite. His weight is up 8 pounds. He has no fever or night sweats. He has had no mouth sores. He has some heartburn, depending on what he eats. He has no other GI or complaints. The pain he had been having in his left side has resolved. He has some achiness in his joints. He currently has no cold sensitivity or other neuropathy symptoms. Medications: Famotidine 1 Tablet (of 40 mg) Oral daily, Fluticasone Furoate Aerosol Powder, Breath Activated Inhalation, LORazepam 0.5 - 1 Tablet (of 1 mg) Oral t.i.d. PRN, Prochlorperazine Maleate 1 Tablet (of 10 mg) Oral PRN Allergies: No Known Allergies. Review of Systems: Constitutional - His energy level is better. He has been doing some outside work. His appetite is good. He has gained 8 lbs. No fever, chills, hot flashes, or night sweats. ECOG score is 1, ENMT - No sinus congestion/drainage. No mouth sores. No sore throat or difficulty swallowing, Hematologic/Lymphatic - No abnormal bruising or bleeding, Respiratory - No shortness of breath. No cough. No pleuritic pain or hemoptysis, Cardiovascular - No angina pain. No palpitations, Gastrointestinal - No nausea or vomiting. He gets occasional heartburn depending on what he eats. No diarrhea or constipation. No blood in the stool or black stools. The pain he was having on his left side has resolved, Genitourinary (M) - No dysuria or hematuria. No urinary frequency. No urgency or incontinence, Musculoskeletal - He has some generalized aches, Integumentary - No skin complications, Neurologic - No headache or dizziness. He has no numbness/paresthesias or other neuropathy symptoms, Psychiatric - No anxiety or depression. No insomnia. Vital Signs: Performed on Jan 12, 2020 09:30 Height - 71.00 in Weight - 285.4 lbs (HIGH) BSA - 2.45 sq.m BMI - 39.81 (HIGH) Temperature - 98.1 F (LOW) Pulse - 65 /min Respiration - 24 /min BP - 153/96 mm(hg) (HIGH) O2 Sat - 99 % Pain - 0 Physical Examination: Constitutional - He looks pretty good generally, Eyes - Sclerae nonicteric. Conjunctivae clear, ENMT - No lesions noted in the oral cavity, Hematologic/Lymphatic - No cervical, clavicular, or axillary adenopathy, Respiratory - Lungs are clear with good air movement bilaterally, Cardiovascular - Heart rhythm is regular. There is no murmur, gallop, or rub noted, Abdomen - Mildly distended but soft. There is no abdominal tenderness. Liver and spleen are not enlarged. There is no abdominal mass or ascites noted and there is no inguinal adenopathy, Extremities - No edema, Integumentary - No skin eruption, Neurologic - No focal neurologic deficits noted. Lab/Imaging: CBC shows hemoglobin 12.6 g, white blood cell count 4900, and platelet count 196,000. Comprehensive metabolic profile is unremarkable except for slightly low potassium at 3.1 mmol/L. Impression: 1. Patient with adenocarcinoma of the head of the pancreas. By clinical evaluation his disease appears to be stage IIB (T2, N1, M0). 2. He underwent ERCP with placement of biliary stent on 11/03/2019, and on 12/01/2019 he underwent repeat ERCP with placement of partially covered metal stent and endoscopic ultrasound with FNA biopsy of pancreatic head mass. 3. There is CT evidence of multiple small noncalcified pulmonary nodules bilaterally, ranging in size from 2 to 4 mm. These are nonspecific, but early metastatic disease is not excluded. 4. He has a positive family history of breast cancer affecting his mother. His other medical illnesses include: 5. Hypertension. 6. Allergic rhinitis. 7. GERD and history of peptic ulcer disease. He is undergoing a trial of neoadjuvant chemotherapy with FOLFIRINOX. He began cycle 1 on 12/29/2019. Side effects included fatigue, mild nausea, dysguesia, anorexia, mild diarrhea, and mild neuropathy. Overall, he tolerated with acceptable toxicity. He does appear to be showing some symptomatic improvement. Plan: He will proceed with cycle 2 of FOLFIRINOX chemotherapy. The dosages will remain the same. He returns in 2 weeks. Signed By: Royal Solano M.D. <<Signature on File>>
[2020-01-26 17:06] LABS: Basophils % 0.6 %; Eosinophils # 0.1 10^3/uL (0.0-0.8); Eosinophils % 2.8 %; Hematocrit 39.8 % (42.0-52.0); Hemoglobin 13.4 g/dL (11.7-16.6); Lymphocytes # 1.5 10^3/uL (0.8-4.8); Lymphocytes % 48.7 %; Mean Corpuscular HGB Conc 33.7 g/dL (30.0-36.0); Mean Corpuscular Hemoglobin 31.8 pg (28.0-34.0); Mean Corpuscular Volume 94.5 fL (80-94); Monocytes # 0.4 10^3/uL (0.2-0.9); Monocytes % 13.3 %; Neutrophils # 1.1 10^3/uL (1.8-7.7); Neutrophils % 34.6 %; Nucleated Red Blood Cells % 0 %; Platelet Count 191 10^3/cmm (130-400); Red Blood Count 4.21 10^6/uL (4.1-5.3); Red Cell Distribution Width 14.6 % (12.1-15.1); White Blood Count 3.2 10^3/uL (4.0-10.0)
[2020-01-26 23:20] LABS: Alanine Aminotransferase 47 U/L (0-41); Albumin Level 3.8 g/dL (3.5-5.2); Alkaline Phosphatase 98 IU/L (40-130); Anion Gap 16.7 (5-19); Aspartate Amino Transferase 38 U/L (0-40); Blood Urea Nitrogen 10 mg/dL (8-23); Calcium 9.2 mg/dL (8.5-10.5); Carbon Dioxide 23 mmol/L (22-29); Chloride 106 mmol/L (98-107); Globulin 2.8 g/dL (1.3-4.6); Glomerular Filtration Rate 85.8 mL/min (90-130); Glucose 103 mg/dL (65-115); Osmolality Calculated 290 mOsm/kg (285-295); Potassium 3.7 mmol/L (3.5-5.1); Sodium 142 mmol/L (136-145); Total Bilirubin 0.3 mg/dL (0.15-1.2); Total Protein 6.6 g/dL (6.6-8.7)
[2020-01-27 03:06] LABS: Cancer Antigen 19 9 283.1 U/mL (0-35)
--- NOTE | 2020-01-30 12:23 | ONC FU_ITS ---
Dr. Solano Patient Follow-Up Note Patient: Gavino Ingram Unit #: [id number]: 1960 Dicatated By: Royal Solano M.D.Date of Visit:Jan 27, 2020 Onc Med Follow-up/Prog Note Chief Complaint: Pancreatic cancer. History of Present Illness: This is a 59 year-old man with adenocarcinoma of the pancreas, by clinical evaluation stage IIB (T2, N1, M0). On 11/02/2019 he presented to the emergency room with jaundice. His total bilirubin at that time was 13.4 mg/dL. The liver enzymes were moderately elevated with alkaline phosphatase 257/130 IU/L, SGOT 98/40 U/L and SGPT 105/41 U/L. Abdominal CT scan showed significantly dilated biliary tree and common hepatic duct with a transition point at the common hepatic-common bile duct junction. The findings were suspicious for underlying stricture or occult mass. There were several mildly enlarged portacaval lymph nodes measuring up to 2 cm. He was transferred to [facility] for admission. On 11/03/2019 he underwent ERCP with placement of biliary stent. He was noted to have a malignant appearing stricture in the mid common bile duct, suspicious for pancreatic neoplasm. On 12/01/2019 he underwent repeat ERCP with placement of partially covered metal stent, and he underwent endoscopic ultrasound with FNA biopsy of a 3.5 x 2.7 cm mass lesion involving the head of the pancreas. The mass was noted to be in close proximity to the vessels but without overt infiltration. There was no celiac axis adenopathy appreciated. Cytology on the FNA biopsy was positive for adenocarcinoma. Staging CT scans of the chest, abdomen, and pelvis on 12/09/2019 showed multiple small bilateral noncalcified pulmonary nodules ranging in size from 2 to 4 mm. There was no evidence of metastatic involvement in the liver. A rounded focus surrounding the pancreatic head measuring 2.9 x 3.6 cm, including adjacent inflammatory changes, was noted to partially obscure a 3 x 1.7 cm pancreatic head mass which had been noted on the preoperative study. Also noted was a necrotic appearing mass/lymph node within the pancreatic head measuring 1.9 cm. A mildly prominent gastrohepatic lymph node measured 1.5 cm. There was no mesenteric adenopathy noted. He was seen by Dr. Davidson for surgical consultation, and then underwent placement of Port-A-Cath venous access device in preparation for neoadjuvant chemotherapy. I had seen him initially on 12/16/2019. As he was generally in good health and had excellent performance status, I had recommended a trial of neoadjuvant chemotherapy with FOLFIRINOX. He began cycle 1 on 12/29/2019. He tolerated that treatment with acceptable toxicity, and he continued with cycle 2 on 01/12/2020. He is seen for a scheduled visit. He has been feeling more draggy following his 2nd cycle of chemotherapy. He is still doing light work. He has been having some nausea, and he has to eat something in the morning or he feels really sick. He has not had fever or night sweats. For 3 to 4 days he has been having some epistaxis in the morning, but that seems to have resolved. He had mouth sores 1 week ago, but that resolved. He does complain that his jaws have been locking up. He has some shortness of breath. He has cough, which he attributes to pollen. He does not complain of chest pain. He has queasiness and he also complains of having acid reflux every day. He had constipation following the chemotherapy, but that resolved with milk of magnesia. He has had no diarrhea. He has just occasional abdominal pain now. He had some generalized aching during the first week after his treatment. He has had cold sensitivity in his fingers, but not as bad now. He also has complained that his hands have been locking. Medications: Famotidine 1 Tablet (of 40 mg) Oral daily, Fluticasone Furoate Aerosol Powder, Breath Activated Inhalation, LORazepam 0.5 - 1 Tablet (of 1 mg) Oral t.i.d. PRN, Potassium Chloride ER 1 Tablet (of 10 meq) Tablet, controlled release Oral daily, Prochlorperazine Maleate 1 Tablet (of 10 mg) Oral PRN Allergies: No Known Allergies. Review of Systems: Constitutional - His energy level has decreased. He is feeling sluggish. He is able to do some light work. His appetite is fair. His weight is down 6 pounds. No fever, chills, hot flashes, or night sweats. ECOG score is 1, ENMT - He has seasonal allergies. No mouth sores. No sore throat or difficulty swallowing. He has been having epistaxis for about one week, but it appears to have resolved. He had some locking of his jaws last week as well, Hematologic/Lymphatic - No abnormal bruising. No other bleeding, Respiratory - No shortness of breath. He has a cough from postnasal drainage. No pleuritic pain or hemoptysis, Cardiovascular - No angina pain. No palpitations, Gastrointestinal - He has nausea in the mornings. No vomiting. He has heartburn that is adequately controlled. No diarrhea. He has intermittent constipation following treatment, resolved with Milk of Magnesium. No blood in the stool or black stools, Genitourinary (M) - No dysuria or hematuria. No urinary frequency. No urgency or incontinence, Musculoskeletal - He had some generalized pain during the first week after his treatment, Integumentary - No skin complications, Neurologic - No headache. He has dizziness with positional changes. He is having numbness and tingling in his fingers, Psychiatric - No anxiety or depression. No insomnia. Vital Signs: Performed on Jan 27, 2020 08:57 Height - 71.00 in Weight - 279.2 lbs (LOW) BSA - 2.43 sq.m BMI - 38.94 (HIGH) Temperature - 97.7 F (LOW) Pulse - 74 /min Respiration - 22 /min BP - 157/102 mm(hg) (HIGH) O2 Sat - 99 % Pain - 0 Physical Examination: Constitutional - He looks pretty good generally, Eyes - Sclerae nonicteric. Conjunctivae clear, ENMT - No lesions noted in the oral cavity, Hematologic/Lymphatic - No cervical, clavicular, or axillary adenopathy, Respiratory - Lungs are clear with good air movement bilaterally, Cardiovascular - Heart rhythm is regular. There is no murmur, gallop, or rub noted, Abdomen - Mildly distended with mild, generalized abdominal tenderness. Liver and spleen are not enlarged. There is no abdominal mass or ascites noted and there is no inguinal adenopathy, Extremities - No edema, Integumentary - No skin eruption, Neurologic - No focal neurologic deficits noted. Lab/Imaging: Test performed on Jan 26, 2020 13:25 Sodium 142 mmol/L Potassium 3.7 mmol/L Chloride 106 mmol/L CO2 23 mmol/L Anion Gap 16.7 BUN 10 mg/dL Creatinine 0.9 mg/dL Cr Clearance (Est) 156.9400 mL/min eGFR 85.8 mL/min Glucose 103 mg/dL Calcium 9.2 mg/dL Protein, Total 6.6 g/dL Albumin 3.8 g/dL Globulin 2.8 g/dL Bilirubin, Total 0.3 mg/dL ALT (SGPT) 47 U/L AST (SGOT) 38 U/L Alkaline Phosphatase 98 IU/L WBC 3.2 10 3/uL RBC 4.21 10 6/uL HGB 13.4 g/dL HCT 39.8 % MCV 94.5 fL MCH 31.8 pg MCHC 33.7 g/dL RDW 14.6 % Platelet Count 191 10 3/cmm MPV 10.0 fL Neutrophils 1.1 10 3/uL Lymphocytes 1.5 10 3/uL Monocytes 0.4 10 3/uL Eosinophils 0.1 10 3/uL Basophils 0.0 10 3/uL Neutrophil % 34.6 % Lymphocyte % 48.7 % Monocyte % 13.3 % Eosinophil % 2.8 % Basophils % 0.6 % CA 19-9 283.1 U/mL Test performed on Dec 29, 2019 08:42 CEA 1.2 ng/mL Impression: 1. Patient with adenocarcinoma of the head of the pancreas. By clinical evaluation his disease appears to be stage IIB (T2, N1, M0). 2. He underwent ERCP with placement of biliary stent on 11/03/2019, and on 12/01/2019 he underwent repeat ERCP with placement of partially covered metal stent and endoscopic ultrasound with FNA biopsy of pancreatic head mass. 3. There is CT evidence of multiple small noncalcified pulmonary nodules bilaterally, ranging in size from 2 to 4 mm. These are nonspecific, but early metastatic disease is not excluded. 4. He has a positive family history of breast cancer affecting his mother. His other medical illnesses include: 5. Hypertension. 6. Allergic rhinitis. 7. GERD and history of peptic ulcer disease. He is undergoing a trial of neoadjuvant chemotherapy with FOLFIRINOX. He began cycle 1 on 12/29/2019. He tolerated it with acceptable toxicity continue with cycle 2 on 01/12/2020. He is now having more fatigue. He continues to have some nausea, but no diarrhea. His neuropathy symptoms have worsened somewhat, and he has moderately severe neutropenia. There has been some decline in his CA-19-9 level, but not dramatic. Plan: Due to the neuropathy and neutropenia, I am going to delay his cycle 3 FOLFIRINOX until next week, and I will plan a 1 level reduction in the oxaliplatin dosage. I will plan a follow-up visit 3 weeks from now. He is tentatively scheduled for restaging CT scan with Dr. Davidson on 12 March. Signed By: Royal Solano M.D. <<Signature on File>>
[2020-02-01 13:16] LABS: Eosinophils # 0.2 10^3/uL (0.0-0.8); Eosinophils % 5.1 %; Hematocrit 43.5 % (42.0-52.0); Hemoglobin 14.3 g/dL (11.7-16.6); Lymphocytes # 1.9 10^3/uL (0.8-4.8); Mean Corpuscular HGB Conc 32.9 g/dL (30.0-36.0); Mean Corpuscular Hemoglobin 31.4 pg (28.0-34.0); Mean Corpuscular Volume 95.4 fL (80-94); Mean Platelet Volume 10.3 fL (7.4-10.4); Monocytes # 0.6 10^3/uL (0.2-0.9); Monocytes % 14.3 %; Neutrophils # 1.2 10^3/uL (1.8-7.7); Neutrophils % 29.8 %; Nucleated Red Blood Cells % 0 %; Platelet Count 209 10^3/cmm (130-400); Red Blood Count 4.56 10^6/uL (4.1-5.3); Red Cell Distribution Width 15.2 % (12.1-15.1); White Blood Count 3.9 10^3/uL (4.0-10.0)
[2020-02-01 13:23] LABS: Alanine Aminotransferase 42 U/L (0-41); Albumin Level 3.7 g/dL (3.5-5.2); Alkaline Phosphatase 103 IU/L (40-130); Anion Gap 17.6 (5-19); Aspartate Amino Transferase 32 U/L (0-40); Blood Urea Nitrogen 9 mg/dL (8-23); Calcium 9.4 mg/dL (8.5-10.5); Carbon Dioxide 20 mmol/L (22-29); Chloride 105 mmol/L (98-107); Globulin 3.2 g/dL (1.3-4.6); Glomerular Filtration Rate 98.3 mL/min (90-130); Glucose 167 mg/dL (65-115); Osmolality Calculated 288 mOsm/kg (285-295); Potassium 3.6 mmol/L (3.5-5.1); Sodium 139 mmol/L (136-145); Total Bilirubin 0.2 mg/dL (0.15-1.2); Total Protein 6.9 g/dL (6.6-8.7)
== END 2020-02-04 23:59 | disposition home or self-care (01) ==
LOC: ONCMED 06:45
PROVIDERS: PCP Nurse Practitioner; Visit Provider Internal Medicine Medical Oncology
DX: Z51.11 Encounter for antineoplastic chemotherapy (principal); C25.0 Malignant neoplasm of head of pancreas; I10 Essential (primary) hypertension; J30.9 Allergic rhinitis, unspecified; K21.9 Gastro-esophageal reflux disease without esophagitis; Z87.11 Personal history of peptic ulcer disease; G62.9 Polyneuropathy, unspecified; D70.1 Agranulocytosis secondary to cancer chemotherapy; T45.1X5A Adverse effect of antineoplastic and immunosuppressive drugs, initial encounter
CPT/HCPCS: 36415; 80053; 85025; 86301; 96367; 96368; 96375; 96411; 96413; 96415; 96416; 96417; 96523; 99214; J0461; J0640; J1100; J1453; J2469; J9190; J9206; J9263

== ENCOUNTER → 2020-02-23 11:01 | Outpatient (BNVA) | payer BC, SELFPAY | PROVIDERS: PCP Nurse Practitioner; Visit Provider Internal Medicine Medical Oncology | DX: C25.0 Malignant neoplasm of head of pancreas (principal) | CPT/HCPCS: 36415; 80053; 85025 ==

== ENCOUNTER 2020-02-26 06:47 | Outpatient (RCR) | payer BC, SELFPAY ==
[2020-02-08 13:10] LABS: Alanine Aminotransferase 37 U/L (0-41); Alkaline Phosphatase 106 IU/L (40-130); Aspartate Amino Transferase 31 U/L (0-40); Blood Urea Nitrogen 14 mg/dL (8-23); Calcium 10.2 mg/dL (8.5-10.5); Carbon Dioxide 21 mmol/L (22-29); Chloride 105 mmol/L (98-107); Globulin 3.7 g/dL (1.3-4.6); Glomerular Filtration Rate 98.3 mL/min (90-130); Glucose 128 mg/dL (65-115); Osmolality Calculated 286 mOsm/kg (285-295); Sodium 139 mmol/L (136-145); Total Bilirubin 0.2 mg/dL (0.15-1.2); Total Protein 7.7 g/dL (6.6-8.7)
[2020-02-08 13:16] LABS: Basophils # 0.1 10^3/uL (0.0-0.1); Basophils % 0.6 %; Eosinophils # 0.2 10^3/uL (0.0-0.8); Eosinophils % 2.3 %; Hemoglobin 15.8 g/dL (11.7-16.6); Lymphocytes # 1.9 10^3/uL (0.8-4.8); Lymphocytes % 24.4 %; Mean Corpuscular HGB Conc 32.9 g/dL (30.0-36.0); Mean Corpuscular Hemoglobin 31.7 pg (28.0-34.0); Mean Corpuscular Volume 96.4 fL (80-94); Mean Platelet Volume 10.2 fL (7.4-10.4); Monocytes # 0.7 10^3/uL (0.2-0.9); Monocytes % 9.1 %; Neutrophils # 4.8 10^3/uL (1.8-7.7); Neutrophils % 62.8 %; Nucleated Red Blood Cells % 0 %; Platelet Count 236 10^3/cmm (130-400); Red Blood Count 4.98 10^6/uL (4.1-5.3); Red Cell Distribution Width 14.7 % (12.1-15.1); White Blood Count 7.7 10^3/uL (4.0-10.0)
[2020-02-10] MEDS: dextrose 5% 250 ML 75 ML IV (10:08)
--- NOTE | 2020-02-13 10:54 | ONC FU_ITS ---
Dr. Solano Patient Follow-Up Note Patient: Gavino Ingram Unit #: [id number]: 1960 Dicatated By: Royal Solano M.D.Date of Visit:February 10, 2020 Onc Med Follow-up/Prog Note Chief Complaint: Pancreatic cancer. History of Present Illness: This is a 59 year-old man with adenocarcinoma of the pancreas, by clinical evaluation stage IIB (T2, N1, M0). On 11/02/2019 he presented to the emergency room with jaundice. His total bilirubin at that time was 13.4 mg/dL. The liver enzymes were moderately elevated with alkaline phosphatase 257/130 IU/L, SGOT 98/40 U/L and SGPT 105/41 U/L. Abdominal CT scan showed significantly dilated biliary tree and common hepatic duct with a transition point at the common hepatic-common bile duct junction. The findings were suspicious for underlying stricture or occult mass. There were several mildly enlarged portacaval lymph nodes measuring up to 2 cm. He was transferred to [facility] for admission. On 11/03/2019 he underwent ERCP with placement of biliary stent. He was noted to have a malignant appearing stricture in the mid common bile duct, suspicious for pancreatic neoplasm. On 12/01/2019 he underwent repeat ERCP with placement of partially covered metal stent, and he underwent endoscopic ultrasound with FNA biopsy of a 3.5 x 2.7 cm mass lesion involving the head of the pancreas. The mass was noted to be in close proximity to the vessels but without overt infiltration. There was no celiac axis adenopathy appreciated. Cytology on the FNA biopsy was positive for adenocarcinoma. Staging CT scans of the chest, abdomen, and pelvis on 12/09/2019 showed multiple small bilateral noncalcified pulmonary nodules ranging in size from 2 to 4 mm. There was no evidence of metastatic involvement in the liver. A rounded focus surrounding the pancreatic head measuring 2.9 x 3.6 cm, including adjacent inflammatory changes, was noted to partially obscure a 3 x 1.7 cm pancreatic head mass which had been noted on the preoperative study. Also noted was a necrotic appearing mass/lymph node within the pancreatic head measuring 1.9 cm. A mildly prominent gastrohepatic lymph node measured 1.5 cm. There was no mesenteric adenopathy noted. He was seen by Dr. Davidson for surgical consultation, and then underwent placement of Port-A-Cath venous access device in preparation for neoadjuvant chemotherapy. I had seen him initially on 12/16/2019. As he was generally in good health and had excellent performance status, I had recommended a trial of neoadjuvant chemotherapy with FOLFIRINOX. He began cycle 1 on 12/29/2019. He tolerated that treatment with acceptable toxicity, and he continued with cycle 2 on 01/12/2020. His cycle 3 was delayed due to multiple toxicities including fatigue, neuropathy, and persistent neutropenia. He is seen for a scheduled visit. He is feeling all right. He does note that he is a little sluggish. His energy is otherwise okay. He is doing light work. ECOG score is 1. He has good appetite. He has no fever or night sweats. He has a little short of breath at times. He is not having cough. He does not complain of chest pain. He has a little acid reflux. He has not been having nausea. He still has some abdominal discomfort, which comes and goes. Bowel function has been adequate with a stool softener. He has had no diarrhea. He has no complaints. He has some typical joint pain. His neuropathy symptoms have resolved. Medications: Famotidine 1 Tablet (of 40 mg) Oral daily, Fluticasone Furoate Aerosol Powder, Breath Activated Inhalation, Lisinopril 1 Tablet (of 40 mg) Oral daily, LORazepam 0.5 - 1 Tablet (of 1 mg) Oral t.i.d. PRN, Potassium Chloride ER 1 Tablet (of 10 meq) Tablet, controlled release Oral daily, Prochlorperazine Maleate 1 Tablet (of 10 mg) Oral PRN Allergies: No Known Allergies. Review of Systems: Constitutional - He is feeling sluggish, but his energy is otherwise okay. He is doing some light outside work. His appetite is good and weight is stable. No fever, chills, hot flashes, or night sweats. ECOG score is 1, ENMT - He has sinus drainage. No mouth sores. No sore throat or difficulty swallowing, Hematologic/Lymphatic - No abnormal bruising or bleeding, Respiratory - He gets shortness of breath with activities. No cough. No pleuritic pain or hemoptysis, Cardiovascular - No angina pain. No palpitations, Gastrointestinal - No nausea or vomiting. His acid reflux is well controlled with famotidine. No diarrhea or constipation. No blood in the stool or black stools, Genitourinary (M) - No dysuria or hematuria. No urinary frequency. No urgency or incontinence, Musculoskeletal - No joint or bone pain, Integumentary - No skin conmplications, Neurologic - No headache. He has some dizziness in the mornings. His numbness and tingling has resolved, Psychiatric - No anxiety or depression. No insomnia. Vital Signs: Performed on February 10, 2020 16:37 Height - 71.00 in Pulse - 57 /min (LOW) Respiration - 18 /min BP - 139/78 mm(hg) O2 Sat - 96 % Pain - 0 Fatigue - 0 Performed on February 10, 2020 09:01 Height - 71.00 in Weight - 280.0 lbs (HIGH) BSA - 2.43 sq.m BMI - 39.05 (HIGH) Temperature - 98.6 F Pulse - 68 /min Respiration - 24 /min BP - 145/89 mm(hg) (HIGH) O2 Sat - 98 % Pain - 0 Physical Examination: Constitutional - He looks pretty good generally, Eyes - Sclerae nonicteric. Conjunctivae clear, ENMT - No lesions noted in the oral cavity, Hematologic/Lymphatic - No cervical, clavicular, or axillary adenopathy, Respiratory - Lungs are clear with good air movement bilaterally, Cardiovascular - Heart rhythm is regular. There is no murmur, gallop, or rub noted, Abdomen - Mildly distended and firm. Liver and spleen are not enlarged. There is no abdominal mass or ascites noted and there is no inguinal adenopathy, Extremities - No edema, Integumentary - No skin eruption, Neurologic - No focal neurologic deficits noted. Lab/Imaging: Test performed on February 08, 2020 09:17 Sodium 139 mmol/L Potassium 4.0 mmol/L Chloride 105 mmol/L CO2 21 mmol/L Anion Gap 17.0 BUN 14 mg/dL Creatinine 0.8 mg/dL Cr Clearance (Est) 176.5600 mL/min eGFR 98.3 mL/min Glucose 128 mg/dL Calcium 10.2 mg/dL Protein, Total 7.7 g/dL Albumin 4.0 g/dL Globulin 3.7 g/dL Bilirubin, Total 0.2 mg/dL ALT (SGPT) 37 U/L AST (SGOT) 31 U/L Alkaline Phosphatase 106 IU/L WBC 7.7 10 3/uL RBC 4.98 10 6/uL HGB 15.8 g/dL HCT 48.0 % MCV 96.4 fL MCH 31.7 pg MCHC 32.9 g/dL RDW 14.7 % Platelet Count 236 10 3/cmm MPV 10.2 fL Neutrophils 4.8 10 3/uL Lymphocytes 1.9 10 3/uL Monocytes 0.7 10 3/uL Eosinophils 0.2 10 3/uL Basophils 0.1 10 3/uL Neutrophil % 62.8 % Lymphocyte % 24.4 % Monocyte % 9.1 % Eosinophil % 2.3 % Basophils % 0.6 % Impression: 1. Patient with adenocarcinoma of the head of the pancreas. By clinical evaluation his disease appears to be stage IIB (T2, N1, M0). 2. He underwent ERCP with placement of biliary stent on 11/03/2019, and on 12/01/2019 he underwent repeat ERCP with placement of partially covered metal stent and endoscopic ultrasound with FNA biopsy of pancreatic head mass. 3. There is CT evidence of multiple small noncalcified pulmonary nodules bilaterally, ranging in size from 2 to 4 mm. These are nonspecific, but early metastatic disease is not excluded. 4. He has a positive family history of breast cancer affecting his mother. His other medical illnesses include: 5. Hypertension. 6. Allergic rhinitis. 7. GERD and history of peptic ulcer disease. He is undergoing a trial of neoadjuvant chemotherapy with FOLFIRINOX. He began cycle 1 on 12/29/2019. He tolerated it with acceptable toxicity continue with cycle 2 on 01/12/2020. He is now having more fatigue. He continues to have some nausea, but no diarrhea. He returns for cycle 3 on 01/19/2020, but that treatment was delayed due to multiple toxicities including fatigue, neuropathy, and persistent neutropenia. At that point there was some decline in the CA-19-9 level, but it was not dramatic. With the treatment delay, he is feeling much better now and his blood counts have recovered. Plan: He will continue with cycle 3 of FOLFIRINOX. He will have a 1 level reduction in the oxalic [place] dosage and a 20% reduction in the dosages of the irinotecan and the 5-FU. He will be given Neulasta prophylactically. He returns in 2 weeks. He is tentatively scheduled to have a restaging CT in [place] on 12 March. Signed By: Royal Solano M.D. <<Signature on File>>
[2020-02-24] MEDS: pantoprazole 40 mg SDV IV (09:41)
[2020-02-24] MEDS: dextrose 5% 250 ML 75 ML (09:50)
[2020-02-24] MEDS: OLANZapine 10 mg TABLET PO (11:56)
--- NOTE | 2020-02-29 14:28 | ONC FU_ITS ---
[facility] Patient Note Patient: Gavino Ingram Unit #: [id number]: [id number] Dictated By: Alfredo BritoDate of Visit: February 24, 2020 Onc MED Follow-Up/Prog Note Chief Complaint: Pancreatic cancer. History of Present Illness: Mr Ingram is a 59 year-old man with adenocarcinoma of the pancreas, by clinical evaluation stage IIB (T2, N1, M0). On 11/02/2019 he presented to the emergency room with jaundice. His total bilirubin at that time was 13.4 mg/dL. The liver enzymes were moderately elevated with alkaline phosphatase 257/130 IU/L, SGOT 98/40 U/L and SGPT 105/41 U/L. Abdominal CT scan showed significantly dilated biliary tree and common hepatic duct with a transition point at the common hepatic-common bile duct junction. The findings were suspicious for underlying stricture or occult mass. There were several mildly enlarged portacaval lymph nodes measuring up to 2 cm. He was transferred to [facility] for admission. On 11/03/2019 he underwent ERCP with placement of biliary stent. He was noted to have a malignant appearing stricture in the mid common bile duct, suspicious for pancreatic neoplasm. On 12/01/2019 he underwent repeat ERCP with placement of partially covered metal stent, and he underwent endoscopic ultrasound with FNA biopsy of a 3.5 x 2.7 cm mass lesion involving the head of the pancreas. The mass was noted to be in close proximity to the vessels but without overt infiltration. There was no celiac axis adenopathy appreciated. Cytology on the FNA biopsy was positive for adenocarcinoma. Staging CT scans of the chest, abdomen, and pelvis on 12/09/2019 showed multiple small bilateral noncalcified pulmonary nodules ranging in size from 2 to 4 mm. There was no evidence of metastatic involvement in the liver. A rounded focus surrounding the pancreatic head measuring 2.9 x 3.6 cm, including adjacent inflammatory changes, was noted to partially obscure a 3 x 1.7 cm pancreatic head mass which had been noted on the preoperative study. Also noted was a necrotic appearing mass/lymph node within the pancreatic head measuring 1.9 cm. A mildly prominent gastrohepatic lymph node measured 1.5 cm. There was no mesenteric adenopathy noted. He was seen by Dr. Davidson for surgical consultation, and then underwent placement of Port-A-Cath venous access device in preparation for neoadjuvant chemotherapy. Dr Solano had seen him initially on 12/16/2019. As he was generally in good health and had excellent performance status, Dr Solano recommended a trial of neoadjuvant chemotherapy with FOLFIRINOX. He began cycle 1 on 12/29/2019. He tolerated that treatment with acceptable toxicity, and he continued with cycle 2 on 01/12/2020. His cycle 3 was delayed due to multiple toxicities including fatigue, neuropathy, and persistent neutropenia. Mr Ingram is here today for followup. He is due for cycle 4 FOLFIRINOX. He states overall he is doing good. He does have hot and cold sensitivity and in his hands and feet in his throat. He states it is resolved currently. He does notice that comes after the oxalic [place] but is no worse than what it has been after his previous treatments. He states is not lasting any longer than it has been in the past. And is resolving between treatments. He denies any mouth sores, sore throat or difficulty swallowing. He has had no fever chills or any signs of infection for at least the last 72 hours. He states his bowels are good. He has had no diarrhea. He is dates that he does his bowel regimen and his bowels stay normal for him. He states with the oxaliplatin he has had some nausea and sweating. He states it seems to come the night after treatment or even a couple days after. He has had no emesis. He denies any heartburn or gastritis symptoms. He has taken Compazine for the nausea and this is helped. He has no nausea at present. In regards to the heartburn and gastritis it sounds as if he may be having some symptoms intermittently as he states he has occasional heartburn and fullness/burning in his stomach/esophageal area. His ECOG is 1. Past Medical History: Allergic rhinitis History of peptic ulcer disease Hypertension Past Surgical History: ERCP with placement of metal stent and with EUS/FNA biopsy of pancreatic head mass in 2020 ERCP with biliary stent placement in 2020 Allergies: No Known Allergies. Medications: Acetaminophen 1 - 2 Tablet (of 500 mg) Oral at bedtime Famotidine 1 Tablet (of 40 mg) Oral daily Fluticasone Furoate Aerosol Powder, Breath Activated Inhalation Lisinopril 1 Tablet (of 40 mg) Oral daily LORazepam 0.5 - 1 Tablet (of 1 mg) Oral t.i.d. PRN Potassium Chloride ER 1 Tablet (of 10 meq) Tablet, controlled release Oral daily Prochlorperazine Maleate 1 Tablet (of 10 mg) Oral PRN Family History: His maternal grandfather is : prostate cancer. Father at age 83 with complications of diabetes. Mother of stroke at age 85. She also had diabetes and she has been treated for breast cancer. A brother and a sister are in good health. Social History: Mr. Ingram is and he is an unknown. Mr. Ingram has never smoked. He is a former drinker. He had smoked a little as a teenager, but none since then. He had some heavy alcohol use in the past, but he quit drinking 40 years ago. Review Of Symptoms: Constitutional Denies fevers, chills, night sweats, excessive fatigue or weight loss. Allergic/Immunologic No reactions. Eyes Denies significant visual changes. No diplopia. No amaurosis. ENMT Denies changes in hearing, sore throat, mouth sores, difficulty or changes in swallowing ability, and/or sinus drainage. Hematologic/Lymphatic Denies easy bruising or bleeding. The patient denies any tender or palpable lymph nodes. Respiratory Denies dyspnea on exertion, chest pain, cough or hemoptysis. Denies orthopnea. He states he gets a little short of breath with alot of exertion. Cardiovascular Denies anginal chest pain, palpitations or orthopnea. Gastrointestinal Denies vomiting, diarrhea, GI bleeding, or constipation. Denies change in bowel habits and/or stool color, no heartburn or early satiety. See above. Genitourinary (M) Denies hematuria, dysuria, increased frequency, urgency, hesitancy or incontinence. Musculoskeletal Denies joint pain, swelling or redness. No decreased range of motion. Integumentary Denies chronic rashes, inflammation, ulcerations or skin changes. Neurologic Denies headache, blurred vision, and no areas of focal weakness or numbness. Normal gait. No sensory problems. Psychiatric Denies insomnia, depression, tiffani or mood swings. Vital Signs: Performed on February 24, 2020 16:04 Height - 71.00 in Temperature - 97.7 F (LOW) Pulse - 65 /min Respiration - 18 /min BP - 131/87 mm(hg) O2 Sat - 96 % Pain - 0 Fatigue - 0 Performed on February 24, 2020 08:35 Height - 71.00 in Weight - 277.2 lbs (LOW) BSA - 2.42 sq.m BMI - 38.66 (HIGH) Temperature - 98.1 F (LOW) Pulse - 75 /min Respiration - 20 /min BP - 140/86 mm(hg) O2 Sat - 98 % Pain - 4,1 - No physically strenuous activity, but ambulatory and able to carry out light or sedentary work (e.g. office work, light house work). (ECOG) Physical Examination: Constitutional Alert, oriented, no acute distress. Skin pink, warm and dry. Head Normocephalic; atraumatic. Eyes Conjunctivae and sclerae are clear and without icterus. Pupils are reactive and equal. Wears corrective lens (glasses) ENMT No oral exudates, ulcers, masses, thrush or mucositis. Oropharynx clear. Tongue normal. Neck Supple without masses or thyromegaly. No jugular venous distension. Hematologic/Lymphatic No petechiae or purpura. No tender or palpable lymph nodes in the cervical or supraclavicular areas. Respiratory Lungs are clear to auscultation without rhonchi or wheezing. Cardiovascular Regular rate and rhythm of heart without murmurs,clicks, gallops or rubs. Abdomen Non-tender, non-distended, no masses or ascites. Good bowel sounds noted in all quads. No guarding or rebound tenderness. No pulsatile masses. Back/Spine Non-tender to palpation. Extremities No visible deformities, no cyanosis, clubbing or edema. Musculoskeletal No tenderness or swelling, normal range of motion without obvious weakness. Integumentary No rashes or lesions. Neurologic No sensory or motor deficits, normal cerebellar function, normal gait. Psychiatric Alert and oriented times three. Coherent speech. Verbalizes understanding of our discussions today. Laboratory:Test performed on February 24, 2020 08:51 Glucose 139 mg/dL BUN 5 mg/dL Creatinine 0.7 mg/dL Cr Clearance (Est) 201.78 mL/min Sodium 139 mmol/L Potassium 4.0 mmol/L Chloride 105 mmol/L CO2 19 mmol/L Calcium 8.8 mg/dL Protein, Total 6.0 g/dL Albumin 3.9 g/dL Globulin 2.1 g/dL Bilirubin, Total 0.2 mg/dL Alkaline Phosphatase 116 IU/L AST (SGOT) 34 IU/L ALT (SGPT) 41 IU/L Test performed on February 24, 2020 08:49 WBC 9.1 10^9/L RBC 4.32 10^12/L HGB 13.9 g/dL HCT 41.7 % MCV 96.5 fl MCH 32.2 pg MCHC 33.3 g/dL RDW 14.8 % Platelet Count 140 10^9/L Neutrophils (Gran) 5.7 10^9/L Lymphocytes 2.0 10^9/L Monocytes 0.8 10^9/L Eosinophils 0.4 10^9/L Basophils 0 10^9/L Test performed on Jan 26, 2020 13:25 CA 19-9 283.1 U/mL Test performed on Dec 29, 2019 08:42 CEA 1.2 ng/mL Impression: 1. Patient with adenocarcinoma of the head of the pancreas. By clinical evaluation his disease appears to be stage IIB (T2, N1, M0). 2. He underwent ERCP with placement of biliary stent on 11/03/2019, and on 12/01/2019 he underwent repeat ERCP with placement of partially covered metal stent and endoscopic ultrasound with FNA biopsy of pancreatic head mass. 3. There is CT evidence of multiple small noncalcified pulmonary nodules bilaterally, ranging in size from 2 to 4 mm. These are nonspecific, but early metastatic disease is not excluded. 4. He has a positive family history of breast cancer affecting his mother. His other medical illnesses include: 5. Hypertension. 6. Allergic rhinitis. 7. GERD and history of peptic ulcer disease. He is undergoing a trial of neoadjuvant chemotherapy with FOLFIRINOX. He began cycle 1 on 12/29/2019. He tolerated it with acceptable toxicity continue with cycle 2 on 01/12/2020. He is now having more fatigue. He continues to have some nausea, but no diarrhea. He returns for cycle 3 on 01/19/2020, but that treatment was delayed due to multiple toxicities including fatigue, neuropathy, and persistent neutropenia. At that point there was some decline in the CA-19-9 level, but it was not dramatic. With the treatment delay, he felt much better and his blood counts recovered. He was able to complete cycle 3 chemotherapy and has tolerated that well. Plan: 1. Proceed with cycle 4 of FOLFIRINOX. He has had a 1 level reduction in the oxaliplatin dosage and a 20% reduction in the dosages of the irinotecan and the 5-FU with cycle 3. 2. He will be given Neulasta prophylactically. 3. I am going to try to add Zyprexa 10 mg p.o. and Protonix 40 mg IV today to see if this helps with his nausea after he gets the oxalic [place]. If he responds well to Zyprexa we can certainly try it at home. I have asked about having him try PPI for possible gastritis but he does not want to add any more medication at this time. 4. Labs from 02/24/2020 were reviewed in detail and discussed with Mr. Ingram and a copy was given to him. WBC 9.1, hemoglobin 13.9, platelets 140,000 ANC 5700 creatinine 0.7 potassium 4.0 random glucose 139 and LFTs are normal. His bilirubin is 0.2. 5. We will plan for him to return in 2 weeks at which time we will ask for a CBC CMP and magnesium (monitoring the oxaliplatin) the day before if possible. 6. Mr. Ingram was instructed to contact us in the interim should questions or problems arise. 7. He states he is scheduled to see Dr. Davidson and have follow-up CT on March 12, 2020. 8. If he continues to have trouble with nausea we could possibly discuss a steroid taper but I would like to see him on a PPI if we do that. Signed By: Alfredo Brito-, [facility] Royal Solano MD <<Signature on File>>
== END 2020-03-06 23:59 | disposition home or self-care (01) ==
LOC: ONCMED 06:47
PROVIDERS: Internal Medicine Medical Oncology; PCP Nurse Practitioner; Visit Provider Nurse Practitioner
DX: Z51.11 Encounter for antineoplastic chemotherapy (principal); C25.0 Malignant neoplasm of head of pancreas; I10 Essential (primary) hypertension; J30.9 Allergic rhinitis, unspecified; Z87.11 Personal history of peptic ulcer disease; Z79.899 Other long term (current) drug therapy
CPT/HCPCS: 80053; 85025; 96367; 96368; 96372; 96375; 96413; 96415; 96416; 96417; 96523; 99214; C9113; J0461; J0640; J1100; J1453; J2469; J2505; J9206; J9263

== ENCOUNTER → 2020-03-08 16:31 | Outpatient (BNVA) | payer BC, SELFPAY | PROVIDERS: PCP Nurse Practitioner; Visit Provider Internal Medicine Hematology & Oncology | DX: C25.0 Malignant neoplasm of head of pancreas (principal) | CPT/HCPCS: 80053; 83735; 85025 ==

== ENCOUNTER → 2020-03-21 09:56 | Outpatient (BNVA) | payer BC, SELFPAY | PROVIDERS: PCP Nurse Practitioner; Visit Provider Internal Medicine Medical Oncology | DX: C25.0 Malignant neoplasm of head of pancreas (principal) | CPT/HCPCS: 36415; 80053; 83735; 85007; 85027 ==

== ENCOUNTER 2020-03-25 06:46 | Outpatient (RCR) | payer BC, SELFPAY ==
[2020-03-09 09:38] LABS: Basophils # 0.1 10^3/uL (0.0-0.1); Basophils % 0.4 %; Eosinophils # 0.2 10^3/uL (0.0-0.8); Eosinophils % 1.6 %; Hematocrit 40.1 % (42.0-52.0); Hemoglobin 13.3 g/dL (11.7-16.6); Lymphocytes # 1.9 10^3/uL (0.8-4.8); Lymphocytes % 16.5 %; Mean Corpuscular HGB Conc 33.2 g/dL (30.0-36.0); Mean Corpuscular Hemoglobin 32.1 pg (28.0-34.0); Mean Corpuscular Volume 96.9 fL (80-94); Monocytes # 1.4 10^3/uL (0.2-0.9); Monocytes % 12.5 %; Neutrophils # 7.7 10^3/uL (1.8-7.7); Neutrophils % 66.7 %; Nucleated Red Blood Cells % 0 %; Platelet Count 193 10^3/cmm (130-400); Red Blood Count 4.14 10^6/uL (4.1-5.3); Red Cell Distribution Width 15.9 % (12.1-15.1); White Blood Count 11.5 10^3/uL (4.0-10.0)
[2020-03-09 09:55] LABS: Alanine Aminotransferase 41 U/L (0-41); Albumin Level 3.7 g/dL (3.5-5.2); Alkaline Phosphatase 110 IU/L (40-130); Anion Gap 13.8 (5-19); Aspartate Amino Transferase 36 U/L (0-40); Blood Urea Nitrogen 10 mg/dL (8-23); Calcium 9.1 mg/dL (8.5-10.5); Carbon Dioxide 22 mmol/L (22-29); Chloride 104 mmol/L (98-107); Globulin 2.5 g/dL (1.3-4.6); Glomerular Filtration Rate 98.3 mL/min (90-130); Glucose 110 mg/dL (65-115); Magnesium 2.1 mg/dL (1.7-2.3); Osmolality Calculated 279 mOsm/kg (285-295); Potassium 3.8 mmol/L (3.5-5.1); Sodium 136 mmol/L (136-145); Total Bilirubin 0.2 mg/dL (0.15-1.2); Total Protein 6.2 g/dL (6.6-8.7)
[2020-03-09] MEDS: dextrose 5% 250 ML 75 ML IV (10:12)
[2020-03-09 10:43] LABS: Cancer Antigen 19 9 224.2 U/mL (0-35)
--- NOTE | 2020-03-13 08:13 | ONC FU_ITS ---
Dr. Solano Patient Follow-Up Note Patient: Gavino Ingram Unit #: [id number]: 1960 Dicatated By: Royal Solano M.D.Date of Visit:Mar 09, 2020 Onc Med Follow-up/Prog Note Chief Complaint: Pancreatic cancer. History of Present Illness: This is a 59 year-old man with adenocarcinoma of the pancreas, by clinical evaluation stage IIB (T2, N1, M0). On 11/02/2019 he presented to the emergency room with jaundice. His total bilirubin at that time was 13.4 mg/dL. The liver enzymes were moderately elevated with alkaline phosphatase 257/130 IU/L, SGOT 98/40 U/L and SGPT 105/41 U/L. Abdominal CT scan showed significantly dilated biliary tree and common hepatic duct with a transition point at the common hepatic-common bile duct junction. The findings were suspicious for underlying stricture or occult mass. There were several mildly enlarged portacaval lymph nodes measuring up to 2 cm. He was transferred to [facility] for admission. On 11/03/2019 he underwent ERCP with placement of biliary stent. He was noted to have a malignant appearing stricture in the mid common bile duct, suspicious for pancreatic neoplasm. On 12/01/2019 he underwent repeat ERCP with placement of partially covered metal stent, and he underwent endoscopic ultrasound with FNA biopsy of a 3.5 x 2.7 cm mass lesion involving the head of the pancreas. The mass was noted to be in close proximity to the vessels but without overt infiltration. There was no celiac axis adenopathy appreciated. Cytology on the FNA biopsy was positive for adenocarcinoma. Staging CT scans of the chest, abdomen, and pelvis on 12/09/2019 showed multiple small bilateral noncalcified pulmonary nodules ranging in size from 2 to 4 mm. There was no evidence of metastatic involvement in the liver. A rounded focus surrounding the pancreatic head measuring 2.9 x 3.6 cm, including adjacent inflammatory changes, was noted to partially obscure a 3 x 1.7 cm pancreatic head mass which had been noted on the preoperative study. Also noted was a necrotic appearing mass/lymph node within the pancreatic head measuring 1.9 cm. A mildly prominent gastrohepatic lymph node measured 1.5 cm. There was no mesenteric adenopathy noted. He was seen by Dr. Davidson for surgical consultation, and then underwent placement of Port-A-Cath venous access device in preparation for neoadjuvant chemotherapy. I had seen him initially on 12/16/2019. As he was generally in good health and had excellent performance status, I had recommended a trial of neoadjuvant chemotherapy with FOLFIRINOX. He began cycle 1 on 12/29/2019. He tolerated that treatment with acceptable toxicity, and he continued with cycle 2 on 01/12/2020. His cycle 3 was delayed 2 weeks due to multiple toxicities including fatigue, neuropathy, and persistent neutropenia. With that cycle, he was given a dose reduction, and he also was given Neulasta prophylactically. He tolerated the treatment pretty well, and he was able to continue with cycle 4 on 02/24/2020. He is seen for a scheduled visit. He says he is feeling all right, but he says that the chemotherapy still knocks the crap out of him for 5-8 days with fatigue and nausea/anorexia. His energy is pretty good now, and his appetite is better. He does not have fever or night sweats. He has a constant soreness in his mouth, though he has not had any actual ulcerations. He has no shortness of breath, cough, or chest pain. He says he has nausea most of the time. Bowel function remains adequate. He has had no diarrhea. He says his urination is a little weaker. He has normal joint aches and pains. The neuropathy gets worse for a week after treatment, but the second week is better. Medications: Acetaminophen 1 - 2 Tablet (of 500 mg) Oral at bedtime, Famotidine 1 Tablet (of 40 mg) Oral daily, Fluticasone Furoate Aerosol Powder, Breath Activated Inhalation, Lisinopril 1 Tablet (of 40 mg) Oral daily, LORazepam 0.5 - 1 Tablet (of 1 mg) Oral t.i.d. PRN, Potassium Chloride ER 1 Tablet (of 10 meq) Tablet, controlled release Oral daily, Prochlorperazine Maleate 1 Tablet (of 10 mg) Oral PRN Allergies: No Known Allergies. Review of Systems: Constitutional - He feels good today but he has pretty limited activity days 3-5 following his treatments. His appetite is good and weight is stable. No fever, night sweats, or hot flashes. ECOG score is 1, ENMT - He has chronic sinusitis. No mouth sores. No sore throat or difficulty swallowing, Hematologic/Lymphatic - No abnormal bruising or bleeding, Respiratory - No shortness of breath. No cough. No pleuritic pain or hemoptysis, Cardiovascular - No angina pain. No palpitations, Gastrointestinal - He has nausea which is adequately controlled with prochlorperazine. No vomiting. He has heartburn depending on what he eats. No diarrhea or constipation. No blood in the stool or black stools, Genitourinary (M) - No dysuria or hematuria. No urinary frequency. No urgency or incontinence, Musculoskeletal - He has chronic unchanged arthritic pain, Integumentary - No skin complications, Neurologic - No headache or dizziness. His neuropathy is improved. No other focal neurologic symptoms, Psychiatric - No anxiety or depression. No insomnia. Vital Signs: Performed on Mar 09, 2020 08:46 Height - 71.00 in Weight - 278.2 lbs (HIGH) BSA - 2.43 sq.m BMI - 38.80 (HIGH) Temperature - 97.9 F (LOW) Pulse - 68 /min Respiration - 24 /min BP - 148/95 mm(hg) (HIGH) O2 Sat - 99 % Pain - 0 Physical Examination: Constitutional - He looks pretty good generally, Eyes - Sclerae nonicteric. Conjunctivae clear, ENMT - No lesions noted in the oral cavity, Hematologic/Lymphatic - No cervical, clavicular, or axillary adenopathy, Respiratory - Lungs are clear with good air movement bilaterally, Cardiovascular - Heart rhythm is regular. There is no murmur, gallop, or rub noted, Abdomen - Mildly distended. Liver and spleen are not enlarged. There is no abdominal mass or ascites noted and there is no inguinal adenopathy, Extremities - No edema, Neurologic - No focal neurologic deficits noted. Lab/Imaging: Test performed on Mar 09, 2020 10:59 CA 19-9 224.2 Units/mL Test performed on Mar 09, 2020 09:14 Magnesium 2.1 mg/dL Sodium 136 mmol/L Potassium 3.8 mmol/L Chloride 104 mmol/L CO2 22 mmol/L Anion Gap 13.8 BUN 10 mg/dL Creatinine 0.8 mg/dL Cr Clearance (Est) 176.5600 mL/min eGFR 98.3 mL/min Glucose 110 mg/dL Calcium 9.1 mg/dL Protein, Total 6.2 g/dL Albumin 3.7 g/dL Globulin 2.5 g/dL Bilirubin, Total 0.2 mg/dL ALT (SGPT) 41 U/L AST (SGOT) 36 U/L Alkaline Phosphatase 110 IU/L WBC 11.5 10 3/uL RBC 4.14 10 6/uL HGB 13.3 g/dL HCT 40.1 % MCV 96.9 fL MCH 32.1 pg MCHC 33.2 g/dL RDW 15.9 % Platelet Count 193 10 3/cmm MPV 10.0 fL Neutrophils 7.7 10 3/uL Lymphocytes 1.9 10 3/uL Monocytes 1.4 10 3/uL Eosinophils 0.2 10 3/uL Basophils 0.1 10 3/uL Neutrophil % 66.7 % Lymphocyte % 16.5 % Monocyte % 12.5 % Eosinophil % 1.6 % Basophils % 0.4 % Impression: 1. Patient with adenocarcinoma of the head of the pancreas. By clinical evaluation his disease appears to be stage IIB (T2, N1, M0). 2. He underwent ERCP with placement of biliary stent on 11/03/2019, and on 12/01/2019 he underwent repeat ERCP with placement of partially covered metal stent and endoscopic ultrasound with FNA biopsy of pancreatic head mass. 3. There is CT evidence of multiple small noncalcified pulmonary nodules bilaterally, ranging in size from 2 to 4 mm. These are nonspecific, but early metastatic disease is not excluded. 4. He has a positive family history of breast cancer affecting his mother. His other medical illnesses include: 5. Hypertension. 6. Allergic rhinitis. 7. GERD and history of peptic ulcer disease. He is undergoing a trial of neoadjuvant chemotherapy with FOLFIRINOX. He began cycle 1 on 12/29/2019. He tolerated it with acceptable toxicity continue with cycle 2 on 01/12/2020. He is now having more fatigue. He continues to have some nausea, but no diarrhea. He returns for cycle 3 on 01/19/2020, but that treatment was delayed due to multiple toxicities including fatigue, neuropathy, and persistent neutropenia. At that point there was some decline in the CA-19-9 level, but it was not dramatic. His cycle 3 was delayed for 2 weeks due to multiple toxicities including fatigue, nausea, neuropathy, and persistent neutropenia. With that cycle, he was given a dose reduction and he also started Neulasta prophylactically. Since then he has continued to have fatigue, nausea, and neuropathy, but it is tolerable. Plan: He will continue with cycle 5 of FOLFIRINOX. The dosages will remain the same. I will omit the Neulasta with this cycle. He is scheduled to have a restaging CT scan with Dr. Davidson on the of this month. I will tentatively plan a follow-up visit and a 6th cycle of chemotherapy 2 weeks from now. Signed By: Royal Solano M.D. <<Signature on File>>
[2020-03-23] MEDS: sodium chloride 0.9% 250 ML 999 ML IV (09:45)
--- NOTE | 2020-03-23 14:27 | ONC FU_ITS ---
[facility] Patient Note Patient: Gavino Ingram Unit #: [id number]: 1960 Dictated By: Alfredo BritoDate of Visit: Mar 23, 2020 Onc MED Follow-Up/Prog Note Chief Complaint: Pancreatic cancer. History of Present Illness: Mr Ingram is a 59 year-old man with adenocarcinoma of the pancreas, by clinical evaluation stage IIB (T2, N1, M0). On 11/02/2019 he presented to the emergency room with jaundice. His total bilirubin at that time was 13.4 mg/dL. The liver enzymes were moderately elevated with alkaline phosphatase 257/130 IU/L, SGOT 98/40 U/L and SGPT 105/41 U/L. Abdominal CT scan showed significantly dilated biliary tree and common hepatic duct with a transition point at the common hepatic-common bile duct junction. The findings were suspicious for underlying stricture or occult mass. There were several mildly enlarged portacaval lymph nodes measuring up to 2 cm. He was transferred to [facility] for admission. On 11/03/2019 he underwent ERCP with placement of biliary stent. He was noted to have a malignant appearing stricture in the mid common bile duct, suspicious for pancreatic neoplasm. On 12/01/2019 he underwent repeat ERCP with placement of partially covered metal stent, and he underwent endoscopic ultrasound with FNA biopsy of a 3.5 x 2.7 cm mass lesion involving the head of the pancreas. The mass was noted to be in close proximity to the vessels but without overt infiltration. There was no celiac axis adenopathy appreciated. Cytology on the FNA biopsy was positive for adenocarcinoma. Staging CT scans of the chest, abdomen, and pelvis on 12/09/2019 showed multiple small bilateral noncalcified pulmonary nodules ranging in size from 2 to 4 mm. There was no evidence of metastatic involvement in the liver. A rounded focus surrounding the pancreatic head measuring 2.9 x 3.6 cm, including adjacent inflammatory changes, was noted to partially obscure a 3 x 1.7 cm pancreatic head mass which had been noted on the preoperative study. Also noted was a necrotic appearing mass/lymph node within the pancreatic head measuring 1.9 cm. A mildly prominent gastrohepatic lymph node measured 1.5 cm. There was no mesenteric adenopathy noted. He was seen by Dr. Davidson for surgical consultation, and then underwent placement of Port-A-Cath venous access device in preparation for neoadjuvant chemotherapy. Dr Solano had seen him initially on 12/16/2019. As he was generally in good health and had excellent performance status, Dr Solano recommended a trial of neoadjuvant chemotherapy with FOLFIRINOX. He began cycle 1 on 12/29/2019. He tolerated that treatment with acceptable toxicity, and he continued with cycle 2 on 01/12/2020. His cycle 3 was delayed due to multiple toxicities including fatigue, neuropathy, and persistent neutropenia. He reports he did have follow-up with Dr. Davidson earlier this month and did have his repeat CAT scan. He states he was told that the tumor was now 2.1 cm. He states he is unsure of measurements prior to his has had 2 different reports. One was 3.8 cm and one was 2.8 cm. We did look at his PET/CT from December which did say 3.8 cm. With the comparison that he is reporting there seems to be slight improvement. The report is not available so I do not have any idea if there is any other changes or new disease. Mr. Ingram reports that he did see Dr. Davidson and Dr. Davidson's plan is seeing him back on April 06 and tentatively planning surgery for 6 weeks after his last chemo treatment which will be today. Mr Ingram is here today for followup. He is due for cycle 6 FOLFIRINOX. He states overall he is not feeling as good as he has in the past. He states he is little nauseous today. He states however he is had a lot of stress at home since his last visit. He states they have had 2 deaths in the family 1 of which was his [id number]. He states that they had the travel to [place] very quickly. They were able to get there on night and his was able to see her dad any past Saturday morning. He states he is been tired from that trip. But is just does not feel that he recovered as well as he has in the past between treatments. He states the neuropathy is significantly worse. But I can deal with it . He does have some difficulty with sensations and has constant tingling at this point. He states that generally between treatments will go away and it did not this time. He has been feeling tired and washed out. He is not able to get up and do his chores because he is just too tired . However some days he states he is feeling better and does get up and move around pretty good. He denies fever or chills. He denies any vomiting. He states the nausea kind of comes and goes and it will relieved if he takes his nausea meds but just got hit him on the trip over today. He denies any diarrhea or constipation. He states his urinary patterns are normal for him. The neuropathy has increased since last visit and is affecting hands and feet. He states that sometimes thinks is affecting his bowels he does have intermittent constipation but has a controlled with stool softeners and as needed laxatives. He denies any mouth sores, sore throat or difficulty swallowing. He denies any rash. He states his appetite is good. His ECOG is 1. Past Medical History: Allergic rhinitis History of peptic ulcer disease Hypertension Past Surgical History: ERCP with placement of metal stent and with EUS/FNA biopsy of pancreatic head mass in 2019 ERCP with biliary stent placement in 2019 Allergies: No Known Allergies. Medications: Acetaminophen 1 - 2 Tablet (of 500 mg) Oral at bedtime Famotidine 1 Tablet (of 40 mg) Oral daily Fluticasone Furoate Aerosol Powder, Breath Activated Inhalation Lisinopril 1 Tablet (of 40 mg) Oral daily LORazepam 0.5 - 1 Tablet (of 1 mg) Oral t.i.d. PRN Potassium Chloride ER 1 Tablet (of 10 meq) Tablet, controlled release Oral daily Prochlorperazine Maleate 1 Tablet (of 10 mg) Oral PRN Family History: His maternal grandfather is : prostate cancer. Father at age 83 with complications of diabetes. Mother of stroke at age 85. She also had diabetes and she has been treated for breast cancer. A brother and a sister are in good health. Social History: Mr. Ingram is and he is an unknown. Mr. Ingram has never smoked. He is a former drinker. He had smoked a little as a teenager, but none since then. He had some heavy alcohol use in the past, but he quit drinking 40 years ago. Review Of Symptoms: Constitutional Denies fevers, chills, night sweats, excessive fatigue or weight loss. Allergic/Immunologic No reactions. Eyes Denies significant visual changes. No diplopia. No amaurosis. ENMT Denies changes in hearing, sore throat, mouth sores, difficulty or changes in swallowing ability, and/or sinus drainage. Hematologic/Lymphatic Denies easy bruising or bleeding. The patient denies any tender or palpable lymph nodes. Respiratory Denies dyspnea on exertion, chest pain, cough or hemoptysis. Denies orthopnea. He states he gets a little short of breath with alot of exertion. Cardiovascular Denies anginal chest pain, palpitations or orthopnea. Gastrointestinal Denies vomiting, diarrhea, GI bleeding, or constipation. Denies change in bowel habits and/or stool color, no heartburn or early satiety. has a little nausea today but no emesis. Genitourinary (M) Denies hematuria, dysuria, increased frequency, urgency, hesitancy or incontinence. Musculoskeletal Denies joint pain, swelling or redness. No decreased range of motion. Integumentary Denies chronic rashes, inflammation, ulcerations or skin changes. Neurologic Denies headache, blurred vision, and no areas of focal weakness or numbness. Normal gait. No sensory problems. Psychiatric Denies insomnia, depression, tiffani or mood swings. Vital Signs: Performed on Mar 23, 2020 08:45 Height - 71.00 in Weight - 274.6 lbs (LOW) BSA - 2.41 sq.m BMI - 38.30 (HIGH) Temperature - 98.2 F (LOW) Pulse - 88 /min Respiration - 17 /min BP - 144/90 mm(hg) (HIGH) O2 Sat - 97 % Pain - 0,1 - No physically strenuous activity, but ambulatory and able to carry out light or sedentary work (e.g. office work, light house work). (ECOG) Physical Examination: Constitutional Alert, oriented, no acute distress. Skin pink, warm and dry. Head Normocephalic; atraumatic. Eyes Conjunctivae and sclerae are clear and without icterus. Pupils are reactive and equal. Wears corrective lens (glasses) Neck Supple without masses or thyromegaly. No jugular venous distension. Hematologic/Lymphatic No petechiae or purpura. No tender or palpable lymph nodes in the cervical or supraclavicular areas. Respiratory Lungs are clear to auscultation without rhonchi or wheezing. Cardiovascular Regular rate and rhythm of heart without murmurs,clicks, gallops or rubs. Abdomen Non-tender, non-distended, no masses or ascites. Good bowel sounds noted in all quads. No guarding or rebound tenderness. No pulsatile masses. Back/Spine Non-tender to palpation. Extremities No visible deformities, no cyanosis, clubbing or edema. Musculoskeletal No tenderness or swelling, normal range of motion without obvious weakness. Integumentary No rashes or lesions. Neurologic No sensory or motor deficits, normal cerebellar function, normal gait. Psychiatric Alert and oriented times three. Coherent speech. Verbalizes understanding of our discussions today. Laboratory:Test performed on Mar 09, 2020 10:59 CA 19-9 224.2 Units/mL Test performed on Mar 09, 2020 09:14 Magnesium 2.1 mg/dL Sodium 136 mmol/L Potassium 3.8 mmol/L Chloride 104 mmol/L CO2 22 mmol/L Anion Gap 13.8 BUN 10 mg/dL Creatinine 0.8 mg/dL Cr Clearance (Est) 176.5600 mL/min eGFR 98.3 mL/min Glucose 110 mg/dL Calcium 9.1 mg/dL Protein, Total 6.2 g/dL Albumin 3.7 g/dL Globulin 2.5 g/dL Bilirubin, Total 0.2 mg/dL ALT (SGPT) 41 U/L AST (SGOT) 36 U/L Alkaline Phosphatase 110 IU/L WBC 11.5 10 3/uL RBC 4.14 10 6/uL HGB 13.3 g/dL HCT 40.1 % MCV 96.9 fL MCH 32.1 pg MCHC 33.2 g/dL RDW 15.9 % Platelet Count 193 10 3/cmm MPV 10.0 fL Neutrophils 7.7 10 3/uL Lymphocytes 1.9 10 3/uL Monocytes 1.4 10 3/uL Eosinophils 0.2 10 3/uL Basophils 0.1 10 3/uL Neutrophil % 66.7 % Lymphocyte % 16.5 % Monocyte % 12.5 % Eosinophil % 1.6 % Basophils % 0.4 % Test performed on Dec 29, 2019 08:42 CEA 1.2 ng/mL Impression: 1. Patient with adenocarcinoma of the head of the pancreas. By clinical evaluation his disease appears to be stage IIB (T2, N1, M0). 2. He underwent ERCP with placement of biliary stent on 11/03/2019, and on 12/01/2019 he underwent repeat ERCP with placement of partially covered metal stent and endoscopic ultrasound with FNA biopsy of pancreatic head mass. 3. There is CT evidence of multiple small noncalcified pulmonary nodules bilaterally, ranging in size from 2 to 4 mm. These are nonspecific, but early metastatic disease is not excluded. 4. He has a positive family history of breast cancer affecting his mother. His other medical illnesses include: 5. Hypertension. 6. Allergic rhinitis. 7. GERD and history of peptic ulcer disease. He is undergoing a trial of neoadjuvant chemotherapy with FOLFIRINOX. He began cycle 1 on 12/29/2019. He tolerated it with acceptable toxicity continue with cycle 2 on 01/12/2020. He is now having more fatigue. He continues to have some nausea, but no diarrhea. He returns for cycle 3 on 01/19/2020, but that treatment was delayed due to multiple toxicities including fatigue, neuropathy, and persistent neutropenia. At that point there was some decline in the CA-19-9 level, but it was not dramatic. His cycle 3 was delayed for 2 weeks due to multiple toxicities including fatigue, nausea, neuropathy, and persistent neutropenia. With that cycle, he was given a dose reduction and he also started Neulasta prophylactically. Since then he has continued to have fatigue, nausea, and neuropathy, but it had been tolerable until cycle 5. He states it all worsened after his last treatment. He states the neuropathy has gotten alot worse. Mr Ingram did have followup with Dr Davidson and repeat cT. Mr Ingram reports that the scan was better, the tumor was 2.1 cm . He is scheduled to see Dr. Davidson in April 06. He states Dr. Davidson told him he wanted around 6 weeks between chemo and surgery. At this point he states that Dr. Davidson is planning to do a Whipple. Plan: 1. Proceed cycle of FOLFIRI-will omit oxaliplatin at this time due to neuropathy and declining performance status. 2. I did not give Neulasta this cycle due to omitting the oxaliplatin. 3. He will get antiemetics premeds today so hopefully this will alleviate his current nausea. He states he thinks his nausea is more anxiety than anything. 4. Labs from March 22, 2020 were reviewed in detail and discussed with Mr. Ingram. A copy was given to him. WBC 5.1, hemoglobin 13.7, platelets 158,000. ANC is 3000. Creatinine 0.7 LFTs are normal. His CA-19-9 on March 09, 2020 was 224.2. His December 29, 2019 CA-19-9 was 339.2 5. We will plan to see him back in 4 weeks for post chemo treatment follow-up. This will also be presurgery. We will to make sure his counts have recovered. 7. He will return with a CBC CMP and CA-19-9. 8. Mr. Ingram was encouraged to contact us in the interim should questions or problems arise. Signed By: Alfredo Brito-, [facility] Royal Solano MD <<Signature on File>>
== END 2020-04-05 23:59 | disposition home or self-care (01) ==
LOC: ONCMED 06:46
PROVIDERS: Internal Medicine Medical Oncology; PCP Nurse Practitioner; Visit Provider Nurse Practitioner
DX: Z51.11 Encounter for antineoplastic chemotherapy (principal); C25.0 Malignant neoplasm of head of pancreas; I10 Essential (primary) hypertension; J30.9 Allergic rhinitis, unspecified; K21.9 Gastro-esophageal reflux disease without esophagitis; Z79.899 Other long term (current) drug therapy
CPT/HCPCS: 80053; 83735; 85025; 86301; 96367; 96368; 96375; 96413; 96415; 96416; 96417; 96523; 99214; J0461; J0640; J1100; J1453; J2469; J7050; J9206; J9263

== ENCOUNTER 2020-04-20 07:15 | Outpatient (RCR) | payer BC, SELFPAY ==
[2020-04-20] MEDS: alteplase 1 mg/mL SDV 2 mL 2 MG IV (12:15)
[2020-04-20 12:36] LABS: Basophils % 0.3 %; Eosinophils # 0.2 10^3/uL (0.0-0.8); Eosinophils % 4.2 %; Hematocrit 38.4 % (42.0-52.0); Hemoglobin 13.1 g/dL (11.7-16.6); Lymphocytes # 1.4 10^3/uL (0.8-4.8); Lymphocytes % 24.3 %; Mean Corpuscular HGB Conc 34.1 g/dL (30.0-36.0); Mean Corpuscular Hemoglobin 34.3 pg (28.0-34.0); Mean Corpuscular Volume 100.5 fL (80-94); Mean Platelet Volume 9.7 fL (7.4-10.4); Monocytes # 0.5 10^3/uL (0.2-0.9); Monocytes % 9.4 %; Neutrophils # 3.53 10^3/uL (1.8-7.7); Neutrophils % 61.5 %; Nucleated Red Blood Cells % 0 %; Platelet Count 203 10^3/cmm (130-400); Red Blood Count 3.82 10^6/uL (4.1-5.3); Red Cell Distribution Width 14.6 % (12.1-15.1); White Blood Count 5.8 10^3/uL (4.0-10.0)
[2020-04-20 12:54] LABS: Alanine Aminotransferase 29 U/L (0-41); Albumin Level 3.8 g/dL (3.5-5.2); Alkaline Phosphatase 82 IU/L (40-130); Anion Gap 11.5 (5-19); Aspartate Amino Transferase 30 U/L (0-40); Blood Urea Nitrogen 11 mg/dL (8-23); Calcium 8.6 mg/dL (8.5-10.5); Carbon Dioxide 22 mmol/L (22-29); Chloride 108 mmol/L (98-107); Globulin 2.5 g/dL (1.3-4.6); Glomerular Filtration Rate 98.3 mL/min (90-130); Glucose 115 mg/dL (65-115); Osmolality Calculated 283 mOsm/kg (285-295); Potassium 3.5 mmol/L (3.5-5.1); Sodium 138 mmol/L (136-145); Total Bilirubin 0.4 mg/dL (0.15-1.2); Total Protein 6.3 g/dL (6.6-8.7)
[2020-04-20 15:00] LABS: Cancer Antigen 19 9 124.4 U/mL (0-35)
--- NOTE | 2020-04-24 14:46 | ONC FU_ITS ---
Dr. Solano Patient Follow-Up Note Patient: Gavino Ingram Unit #: [id number]: 1960 Dicatated By: Royal Solano M.D.Date of Visit:Apr 20, 2020 Onc Med Follow-up/Prog Note Chief Complaint: Pancreatic cancer. History of Present Illness: This is a 59 year-old man with adenocarcinoma of the pancreas, by clinical evaluation stage IIB (T2, N1, M0). On 11/02/2019 he presented to the emergency room with jaundice. His total bilirubin at that time was 13.4 mg/dL. The liver enzymes were moderately elevated with alkaline phosphatase 257/130 IU/L, SGOT 98/40 U/L and SGPT 105/41 U/L. Abdominal CT scan showed significantly dilated biliary tree and common hepatic duct with a transition point at the common hepatic-common bile duct junction. The findings were suspicious for underlying stricture or occult mass. There were several mildly enlarged portacaval lymph nodes measuring up to 2 cm. He was transferred to [facility] for admission. On 11/03/2019 he underwent ERCP with placement of biliary stent. He was noted to have a malignant appearing stricture in the mid common bile duct, suspicious for pancreatic neoplasm. On 12/01/2019 he underwent repeat ERCP with placement of partially covered metal stent, and he underwent endoscopic ultrasound with FNA biopsy of a 3.5 x 2.7 cm mass lesion involving the head of the pancreas. The mass was noted to be in close proximity to the vessels but without overt infiltration. There was no celiac axis adenopathy appreciated. Cytology on the FNA biopsy was positive for adenocarcinoma. Staging CT scans of the chest, abdomen, and pelvis on 12/09/2019 showed multiple small bilateral noncalcified pulmonary nodules ranging in size from 2 to 4 mm. There was no evidence of metastatic involvement in the liver. A rounded focus surrounding the pancreatic head measuring 2.9 x 3.6 cm, including adjacent inflammatory changes, was noted to partially obscure a 3 x 1.7 cm pancreatic head mass which had been noted on the preoperative study. Also noted was a necrotic appearing mass/lymph node within the pancreatic head measuring 1.9 cm. A mildly prominent gastrohepatic lymph node measured 1.5 cm. There was no mesenteric adenopathy noted. He was seen by Dr. Davidson for surgical consultation, and then underwent placement of Port-A-Cath venous access device in preparation for neoadjuvant chemotherapy. I had seen him initially on 12/16/2019. As he was generally in good health and had excellent performance status, I had recommended a trial of neoadjuvant chemotherapy with FOLFIRINOX. He began cycle 1 on 12/29/2019. He tolerated that treatment with acceptable toxicity, and he continued with cycle 2 on 01/12/2020. His cycle 3 was delayed 2 weeks due to multiple toxicities including fatigue, neuropathy, and persistent neutropenia. With that cycle, he was given a dose reduction, and he also was given Neulasta prophylactically. He tolerated the treatment pretty well, and he was able to continue with cycle 4 on 02/24/2020, with cycle 5 on 03/09/2020, and with cycle 6 on 03/23/2020. He is seen for a followup visit. He complains that his last chemotherapy treatment through him for a loop. His energy, though, is better now. He has been working outside 8 to 12 hours a day. ECOG score is 1. He has good appetite. He does not have fever or night sweats. Recently he has had sore throat. He does not complain of shortness of breath, cough, or chest pain. As of last week he was still having some pain across his upper abdomen. He has no other GI or complaints. He has no significant joint or bone pain. He says his neuropathy is subsiding. Medications: Acetaminophen 1 - 2 Tablet (of 500 mg) Oral at bedtime, Famotidine 1 Tablet (of 40 mg) Oral daily, Fluticasone Furoate Aerosol Powder, Breath Activated Inhalation, Lisinopril 1 Tablet (of 40 mg) Oral daily, LORazepam 0.5 - 1 Tablet (of 1 mg) Oral t.i.d. PRN, Prochlorperazine Maleate 1 Tablet (of 10 mg) Oral PRN Allergies: No Known Allergies. Review of Systems: Constitutional - His as his last chemo treatment through him for a loop, but his energy is better now. He is working outside 8 to 12 hours a day. His appetite is good and weight is stable. No fever or night sweats. ECOG score is 1, ENMT - He has chronic sinusitis. No mouth sores. He recently has had sore throat. No difficulty swallowing, Hematologic/Lymphatic - No abnormal bruising or bleeding, Respiratory - No shortness of breath. No cough. No pleuritic pain or hemoptysis, Cardiovascular - No angina pain. No palpitations, Gastrointestinal - No nausea or vomiting. No heartburn or acid reflux. Last week he was still having some pain across the upper abdomen, but that has resolved. No diarrhea or constipation. No blood in the stool or black stools, Genitourinary (M) - No dysuria or hematuria. No urinary frequency. No urgency or incontinence, Musculoskeletal - No significant joint or bone pain, Integumentary - No skin complications, Neurologic - No headache or dizziness. His neuropathy is subsiding. No other focal neurologic symptoms, Psychiatric - No anxiety or depression. No insomnia. Vital Signs: Performed on Apr 20, 2020 13:33 Height - 71.00 in Weight - 286.6 lbs (HIGH) BSA - 2.46 sq.m BMI - 39.97 (HIGH) Temperature - 99.3 F (HIGH) Pulse - 81 /min Respiration - 20 /min BP - 140/91 mm(hg) O2 Sat - 95 % (LOW) Pain - 0 Physical Examination: Constitutional - He looks pretty good generally, Eyes - Sclerae nonicteric. Conjunctivae clear, ENMT - No lesions noted in the oral cavity, Hematologic/Lymphatic - No cervical, clavicular, or axillary adenopathy, Respiratory - Lungs are clear with good air movement bilaterally, Cardiovascular - Heart rhythm is regular. There is no murmur, gallop, or rub noted, Abdomen - Mildly distended. Liver and spleen are not enlarged. There is no abdominal mass or ascites noted and there is no inguinal adenopathy, Extremities - No edema, Neurologic - No focal neurologic deficits noted. Lab/Imaging: Test performed on Apr 20, 2020 12:19 Sodium 138 mmol/L Potassium 3.5 mmol/L Chloride 108 mmol/L CO2 22 mmol/L Anion Gap 11.5 BUN 11 mg/dL Creatinine 0.8 mg/dL Cr Clearance (Est) 176.5600 mL/min eGFR 98.3 mL/min Glucose 115 mg/dL Calcium 8.6 mg/dL Protein, Total 6.3 g/dL Albumin 3.8 g/dL Globulin 2.5 g/dL Bilirubin, Total 0.4 mg/dL ALT (SGPT) 29 U/L AST (SGOT) 30 U/L Alkaline Phosphatase 82 IU/L WBC 5.8 10 3/uL RBC 3.82 10 6/uL HGB 13.1 g/dL HCT 38.4 % MCV 100.5 fL MCH 34.3 pg MCHC 34.1 g/dL RDW 14.6 % Platelet Count 203 10 3/cmm MPV 9.7 fL Neutrophils 3.53 10 3/uL Lymphocytes 1.4 10 3/uL Monocytes 0.5 10 3/uL Eosinophils 0.2 10 3/uL Basophils 0.0 10 3/uL Neutrophil % 61.5 % Lymphocyte % 24.3 % Monocyte % 9.4 % Eosinophil % 4.2 % Basophils % 0.3 % NRBC % 0 % CA 19-9 124.4 U/mL Impression: 1. Patient with adenocarcinoma of the head of the pancreas. By clinical evaluation his disease appears to be stage IIB (T2, N1, M0). 2. He underwent ERCP with placement of biliary stent on 11/03/2019, and on 12/01/2019 he underwent repeat ERCP with placement of partially covered metal stent and endoscopic ultrasound with FNA biopsy of pancreatic head mass. 3. There is CT evidence of multiple small noncalcified pulmonary nodules bilaterally, ranging in size from 2 to 4 mm. These are nonspecific, but early metastatic disease is not excluded. 4. He has a positive family history of breast cancer affecting his mother. His other medical illnesses include: 5. Hypertension. 6. Allergic rhinitis. 7. GERD and history of peptic ulcer disease. He is undergoing a trial of neoadjuvant chemotherapy with FOLFIRINOX. He began cycle 1 on 12/29/2019. He tolerated it with acceptable toxicity continue with cycle 2 on 01/12/2020. He is now having more fatigue. He continues to have some nausea, but no diarrhea. He returns for cycle 3 on 01/19/2020, but that treatment was delayed due to multiple toxicities including fatigue, neuropathy, and persistent neutropenia. At that point there was some decline in the CA-19-9 level, but it was not dramatic. His cycle 3 was delayed for 2 weeks due to multiple toxicities including fatigue, nausea, neuropathy, and persistent neutropenia. With that cycle, he was given a dose reduction and he also started Neulasta prophylactically. During his further treatment he continued to have fatigue, nausea, and neuropathy, but it was tolerable. As of 03/23/2020 he had completed 6 cycles of chemotherapy. His current CA-19-9 level has decreased significantly, now to 124.4 U/mL compared to a pretreatment level of 339.2 U/mL. Plan: He will not be having any further neoadjuvant chemotherapy, as he is now scheduled to undergo surgery on the of this month. He will return for postoperative adjuvant therapy has indicated. In the meantime, he will continue on his oral potassium supplement. Signed By: Royal Solano M.D. <<Signature on File>>
== END 2020-05-06 23:59 | disposition home or self-care (01) ==
LOC: ONCMED 07:15
PROVIDERS: PCP Nurse Practitioner; Visit Provider Internal Medicine Medical Oncology
DX: C25.0 Malignant neoplasm of head of pancreas (principal); R91.8 Other nonspecific abnormal finding of lung field; Z80.3 Family history of malignant neoplasm of breast; I10 Essential (primary) hypertension; K21.9 Gastro-esophageal reflux disease without esophagitis; Z79.899 Other long term (current) drug therapy; Z87.11 Personal history of peptic ulcer disease; Z92.21 Personal history of antineoplastic chemotherapy
CPT/HCPCS: 36415; 36593; 80053; 85025; 86301; 96374; 99214; J2997

== ENCOUNTER 2020-05-30 05:53 | Outpatient (RCR) | payer BC, SELFPAY ==
[2020-05-23] MEDS: alteplase 1 mg/mL SDV 2 mL 2 MG IV (15:26)
--- NOTE | 2020-05-23 17:39 | ONC FU_ITS ---
Dr. Solano Patient Follow-Up Note Patient: Gavino Ingram Unit #: [id number]: [id number] Dicatated By: Royal Solano M.D.Date of Visit:May 23, 2020 Onc Med Follow-up/Prog Note Chief Complaint: Pancreatic cancer. History of Present Illness: This is a 59 year-old man with adenocarcinoma of the pancreas, pathologic stage IIB (pT2, pN1, M0). On 11/02/2019 he presented to the emergency room with jaundice. His total bilirubin at that time was 13.4 mg/dL. The liver enzymes were moderately elevated with alkaline phosphatase 257/130 IU/L, SGOT 98/40 U/L and SGPT 105/41 U/L. Abdominal CT scan showed significantly dilated biliary tree and common hepatic duct with a transition point at the common hepatic-common bile duct junction. The findings were suspicious for underlying stricture or occult mass. There were several mildly enlarged portacaval lymph nodes measuring up to 2 cm. He was transferred to [facility] for admission. On 11/03/2019 he underwent ERCP with placement of biliary stent. He was noted to have a malignant appearing stricture in the mid common bile duct, suspicious for pancreatic neoplasm. On 12/01/2019 he underwent repeat ERCP with placement of partially covered metal stent, and he underwent endoscopic ultrasound with FNA biopsy of a 3.5 x 2.7 cm mass lesion involving the head of the pancreas. The mass was noted to be in close proximity to the vessels but without overt infiltration. There was no celiac axis adenopathy appreciated. Cytology on the FNA biopsy was positive for adenocarcinoma. Staging CT scans of the chest, abdomen, and pelvis on 12/09/2019 showed multiple small bilateral noncalcified pulmonary nodules ranging in size from 2 to 4 mm. There was no evidence of metastatic involvement in the liver. A rounded focus surrounding the pancreatic head measuring 2.9 x 3.6 cm, including adjacent inflammatory changes, was noted to partially obscure a 3 x 1.7 cm pancreatic head mass which had been noted on the preoperative study. Also noted was a necrotic appearing mass/lymph node within the pancreatic head measuring 1.9 cm. A mildly prominent gastrohepatic lymph node measured 1.5 cm. There was no mesenteric adenopathy noted. He was seen by Dr. Davidson for surgical consultation, and then underwent placement of Port-A-Cath venous access device in preparation for neoadjuvant chemotherapy. I had seen him initially on 12/16/2019. As he was generally in good health and had excellent performance status, I had recommended a trial of neoadjuvant chemotherapy with FOLFIRINOX. He completed 6 cycles of treatment between December and March 2020. Toxicities included fatigue, neutropenia, and neuropathy. His cycle 3 had to be delayed by 2 weeks, and at that point he also required a dose reduction. Overall, though, he tolerated the treatment well. He did show a significant decline in his CA-19-9 level, from 339.2 U/mL to 124.4 U/mL. On 04/26/2020 he underwent exploratory laparotomy with pancreaticoduodenectomy, portal (abdominal) lymph node dissection, feeding jejunostomy, omental pedicle flap, and cholecystectomy. On visual inspection, the gallbladder appeared acutely inflamed. There also appeared to be a lot of inflammation in the pancreas, and there were 2 large cyst on his pancreas, consistent with probable pancreatitis. There is a significant desmoplastic reaction in the peritoneum. There was no gross evidence of metastatic disease. Pathology showed well-differentiated ductal adenocarcinoma measuring 3.3 cm in greatest dimension. The bile duct margin, proximal margin, and distal margin were uninvolved, but the pancreatic neck/parenchymal margin and the uncinated/retroperitoneal margin were both involved by invasive carcinoma. There was also involvement in 3 of 17 lymph nodes. Pathologic staging was pT2, pN1. His gallbladder, incidentally, showed marked chronic cholecystitis. He is seen for a followup visit. He has been showing a good recovery from his surgery. At this point his activity is still limited, but he is ambulatory and getting around quite well. His ECOG score is 2. He has been supplementing his nutrition with tube feeding, but he has been gradually eating more. He has been completely off his tube feeding for the past 2 days. He does have some early satiety and queasiness, but he is not had any actual nausea. He is watching his diet, as some foods do tend to go through pretty easy. His weight is down at least 25 pounds. He has not had fever. He has had a little sweating the last couple of nights. Prior to that his night sweating had resolved. He has no shortness of breath, cough, or chest pain. Bladder function remains adequate, though he says he does not have real strong urine flow. He has having some body aches. He still has some numbness/tingling in both hands, but his feet are better now. Medications: Acetaminophen 1 - 2 Tablet (of 500 mg) Oral at bedtime, Claritin 1 Tablet (of 10 mg) Oral daily, Famotidine 1 Tablet (of 40 mg) Oral daily, Fluticasone Furoate Aerosol Powder, Breath Activated Inhalation, K-Tab 1 Tablet (of 10 meq) Tablet, controlled release Oral daily, LORazepam 0.5 - 1 Tablet (of 1 mg) Oral t.i.d. PRN, Prochlorperazine Maleate 1 Tablet (of 10 mg) Oral PRN Allergies: No Known Allergies. Review of Systems: Constitutional - His energy is a little low, and he still has restricted activity following his surgery. He has been supplementing his intake with tube feeding, but he is starting to eat better. He has not had fever. For the last couple of nights he has had some sweating again. ECOG score is 2, ENMT - No sinus congestion/drainage. No mouth sores. His throat is still a little sore. He has no difficulty swallowing, Hematologic/Lymphatic - No abnormal bruising or bleeding, Respiratory - No shortness of breath. No cough. No pleuritic pain or hemoptysis, Cardiovascular - No angina pain. No palpitations, Gastrointestinal - He is having some early satiety and queasiness. He is not actually having nausea. He has not had acid reflux. He is watching his diet, and some foods do tend to go through pretty easy. No blood in the stool or black stools, Genitourinary (M) - He does not have real strong flow. No dysuria or hematuria. No urinary frequency. No urgency or incontinence, Musculoskeletal - He has having some general body aches, Integumentary - No skin rash, Neurologic - No headache. He sometimes has dizziness if he gets up too fast. He still has some numbness/tingling in his hands, but his feet are better now, Psychiatric - He has had some anxiety. He is sleeping okay. Vital Signs: Performed on May 23, 2020 10:51 Height - 71.00 in Weight - 259.6 lbs (LOW) BSA - 2.36 sq.m BMI - 36.21 (HIGH) Temperature - 97.8 F (LOW) Pulse - 81 /min Respiration - 22 /min BP - 137/85 mm(hg) O2 Sat - 98 % Pain - 2 Physical Examination: Constitutional - He looks pretty good generally, Eyes - Sclerae nonicteric. Conjunctivae clear, ENMT - No lesions noted in the oral cavity, Hematologic/Lymphatic - No cervical, clavicular, or axillary adenopathy, Respiratory - Lungs are clear with good air movement bilaterally, Cardiovascular - Heart rhythm is regular. There is no murmur, gallop, or rub noted, Abdomen - Soft. His incision appears well-healed. Liver and spleen are not enlarged. There is no abdominal mass or ascites noted and there is no inguinal adenopathy, Extremities - No edema, Neurologic - No focal neurologic deficits noted. Impression: 1. Patient with well differentiated adenocarcinoma of the head of the pancreas, pathologic stage IIB (pT2, pN1, M0). 2. He underwent ERCP with placement of biliary stent on 11/03/2019, and on 12/01/2019 he underwent repeat ERCP with placement of partially covered metal stent and endoscopic ultrasound with FNA biopsy of pancreatic head mass. 3. From December through March 2020 he completed 6 cycles of neoadjuvant FOLFIRINOX chemotherapy. He required a dose reduction for neutropenia and neuropathy, but overall he tolerated the treatment well. 4. On 04/26/2020 he underwent exploratory laparotomy with pancreaticoduodenectomy, portal (abdominal) lymph node dissection, feeding jejunostomy, omental pedicle flap, and cholecystectomy. Pathology showed well-differentiated ductal adenocarcinoma measuring 3.3 cm in greatest dimension. There was involvement in 3/17 lymph nodes. In addition, the pancreatic neck/parenchymal and the uncinated/retroperitoneal margins were involved by invasive carcinoma. 5. His initial CT scans showed multiple small noncalcified pulmonary nodules bilaterally, ranging in size from 2 to 4 mm. These were nonspecific, but early metastatic disease was not excluded. These appeared stable on his 03/16/[address] scans. 6. He has a positive family history of breast cancer affecting his mother. His other medical illnesses include: 7. Hypertension. 8. Allergic rhinitis. 9. GERD and history of peptic ulcer disease. Plan: He underwent successful pancreaticoduodenectomy on 04/26/2020. He is showing a good recovery from the procedure. Due to the involved surgical margins and the lymph node involvement, he is advised to undergo postoperative radiation concurrently with Xeloda for chemosensitization. He will need some additional recovery time before he starts treatment, but I will go ahead and arrange for him to have radiation oncology consultation with Dr. Jordan. Signed By: Royal Solano M.D. <<Signature on File>>
--- NOTE | 2020-06-01 20:55 | N.ONRAD NP_ITS ---
Radiation Oncology New Patient Visit Patient: Gavino Ingram MR#: [id number] : 1960 Age: 59 Sex: Male Dictated by: Dr. Brennan Jordan Date of Service: 05/30/2020 Referring Physician(s): Dr. Solano Diagnosis: pT2 pN1 M0 pancreatic head adenocarcinoma, s/p 6 cycles of FOLFIRINOX (03/2020), surgical resection (04/2020), and pathology revealed positive margins and 3/17 involved lymph nodes. History of Present Illness: The patient is a 59-year-old male who presented in October 2019 with jaundice, total bilirubin of 13.4 milligrams per deciliter, and moderately elevated hepatocellular enzymes. A CT at that time revealed a dilated biliary tree, and several mildly enlarged portacaval lymph nodes suspicious for malignancy. On 11/03/2019, the patient underwent ERCP with placement of a biliary stent. He was noted to have a malignant appearing stricture in the mid common bile duct. On 12/01/2019, a repeat ERCP was completed. There was no celiac axis adenopathy observed and a subsequent FNA of a 3.5 x 2.7 cm pancreatic head mass was positive for adenocarcinoma on cytology. On 12/09/2019, a CT of the chest abdomen and pelvis revealed multiple bilateral noncalcified pulmonary nodules measuring from 2 to 4 mm, a pancreatic head mass measuring 3.6 cm, a 1.9 cm necrotic appearing mass/lymph node within the pancreatic head, a prominent gastrohepatic lymph node measuring 1.5 cm and no mesenteric adenopathy. The patient was then treated with 6 cycles of neoadjuvant FOLFIRINOX chemotherapy (completed March 2020) which resulted in a decrease of his CA19-9 from 339.2 U/mL to 124.4 U/mL. A postchemotherapy CT of the chest abdomen pelvis (03/16/2020) revealed interval decrease in the pancreatic head mass, interval decrease in the size of adjacent lymph nodes, slight interval increase to 2 cystic areas anterior to the pancreatic head as well as adjacent to the celiac axis, and no hepatic metastatic foci. On 04/26/2020, Dr. Davidson performed an exploratory laparotomy, primary repair of umbilical hernia, cholecystectomy, pancreaticoduodenectomy, portal (abdominal) lymph node dissection, feeding jejunostomy, and omental pedicle flap. Pathology revealed well-differentiated ductal adenocarcinoma measuring 3.3 cm in greatest dimension; positive margins on the pancreatic neck/parenchymal margins; a positive uncinate/retroperitoneal margin; negative margins on the bile duct, proximal margin and distal margin; and 3 of 17 involved lymph nodes. He was thus staged as having pT2 pN1. The patient is seen in consultation today, he reports no complaints, and he is eager to begin adjuvant treatment. Imaging Review: I reviewed the radiographic images discussed above. Current Medications: Acetaminophen, atropine Sulfate, claritin, dexamethasone Sodium Phosphate, emend, famotidine, fluorouracil, fluticasone Furoate, irinotecan HCl, k-Tab, k-Tab, leucovorin Calcium, lORazepam, oxaliplatin, palonosetron HCl, prochlorperazine Maleate, prochlorperazine Maleate. Allergies: No Known Allergies Medical History: - Allergic rhinitis, - history of peptic ulcer disease, - hypertension. No history of collagen vascular disease. No previous radiation therapy. Surgical History: ERCP with biliary stent placement on 11/03/2019 and eRCP with placement of metal stent and with EUS/FNA biopsy of pancreatic head mass on 12/01/2019. Family History: Mother has experienced breast cancer. Maternal Grandmother has experienced breast cancer. Maternal Grandfather is having experienced prostate cancer. Father at age 83 with complications of diabetes. Mother of stroke at age 85. She also had diabetes and she has been treated for breast cancer. A brother and a sister are in good health. Social History: Last screened on 05/23/2020 - Never smoked. Last screened on 05/23/2020 - Past drinker. Current Complaints / Review of Systems: Constitutional - Complains of mild fatigue. Denies lack of appetite, fever, night sweats and change in weight. Eyes - Denies blurred vision and double vision. ENMT - Complains of dysphagia in which he has had a sore throat since 2018. Complains of ear pain on the left side. Denies mouth dryness, stomatitis, altered taste and tinnitus. Neck - Denies neck pain. Integumentary - Denies rash. Cardiovascular - Denies arrhythmias, chest pain and edema. Respiratory - Complains of cough related to sinus drainage. Denies dyspnea and wheezing. Gastrointestinal - Complains of abdominal pain which is generalized / diffuse in nature. Complains of mild heartburn / dyspepsia. Denies constipation, diarrhea, melena / GI bleeding, nausea and vomiting. Has a PEG tube since April and has not used it for about a week now. Genitourinary (M) - Complains of nocturia about 1 time per night. Denies dysuria, frequency and urgency. Musculoskeletal - Complains of joint pain in both knees. Denies bone pain and muscle weakness. Neurologic - Complains of dizziness that occurs upon sitting to standing. Denies abnormal gait and headaches. Hematologic/Lymphatic - Denies tender or enlarged lymph nodes.. Vital Signs: Performed on 05/30/2020 10:23 AM BMI - 36.486 kg/m2 (high), Height - 71.00 in, Weight - 261.6 lbs, Temperature - 98.4 f, Pulse - 62, Respiration - 18, O2 Sat - 98 %, Pain - 0 and BP - 149/ 90 mm(hg)(high/). Physical Exam: GENERAL:??? The patient is alert, and in no acute distress. HEENT:??? Head is normocephalic. External ocular movements are intact. Sclera and conjunctivae are non erythematous. NECK:??? Trachea is midline. LYMPH NODES:??? There is no cervical or supraclavicular lymphadenopathy bilaterally. LUNGS:??? Clear to auscultation bilaterally. Respiratory movement is unlabored. HEART:??? Regular rate and rhythm. ABDOMEN: Bowel sounds normal, nontender, no hepatomegaly. EXTREMITIES:??? No deformities. NEUROLOGIC:??? Gait and station are normal.??? The patient is well coordinated and strength is equal bilaterally. 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 Cranial nerves II-XII are intact and without focal deficits.??? Psych: Affect is normal. Skin: Cursory review of the skin reveals no obvious lesions concerning for malignancy. Performance Status: 1 - No physically strenuous activity, but ambulatory and able to carry out light or sedentary work (e.g. office work, light house work). (ECOG) Pathology: Primary, c25.0 - malignant neoplasm of head of pancreas, Diagnosed 12/16/2019 (active) stage iib, t2, n1, m0. Lab: Test performed on 04/20/2020 12:19 PM RBC - 3.82 10 6/ul (low), HCT - 38.4 % (low), MCV - 100.5 fl (high), MCH - 34.3 pg (high), Chloride - 108 mmol/l (high), Cr Clearance (Est) - 176.5600 ml/min (high), Protein, Total - 6.3 g/dl (low) and CA 19-9 - 124.4 u/ml (high). Assessment/Plan: The patient is a 59-year-old male with pT2 pN1 M0 adenocarcinoma of the pancreatic head. He has been treated with 6 cycles of FOLFIRINOX (03/2020), followed by surgical resection (04/2020). Pathology revealed positive pancreatic neck/parenchymal margins, a positive uncinate/retroperitoneal margin, and 3 of 17 involved lymph nodes. The plan is for adjuvant concurrent chemoradiation therapy consisting of Xeloda. I have ordered a posttreatment CT of the chest abdomen and pelvis prior to planning for radiation therapy, and I recommend consideration for a repeat CA-19-9 level and possibly germline testing as deemed appropriate by medical oncology (if not previously completed). Signed by: Brennan Jordan MD 06/01/2020 8:54:32 PM <<Signature on File>> Time spent with patient: CPT Code: CPT Code:
== END 2020-06-06 23:59 | disposition home or self-care (01) ==
LOC: ONCMED 05:53
PROVIDERS: PCP Nurse Practitioner; Visit Provider Radiology Radiation Oncology
DX: C25.0 Malignant neoplasm of head of pancreas (principal); I10 Essential (primary) hypertension; J30.9 Allergic rhinitis, unspecified; K21.9 Gastro-esophageal reflux disease without esophagitis
CPT/HCPCS: 36593; 96374; 99214; 99215; J2997

== ENCOUNTER 2020-07-06 05:34 | Outpatient (RCR) | payer BC, SELFPAY ==
--- NOTE | 2020-06-08 08:05 | CT_ITS ---
WS: [id number] CT CHEST, ABDOMEN, AND PELVIS TECHNIQUE: Contrast-enhanced CT of the chest, abdomen, and pelvis with coronal and sagittal reformatt ed images. CLINICAL INFORMATION: PANCREATIC CANCER COMPARISON: Multiple prior outside examinations including PET/CT December 26, 2019 CT chest abdomen pelv is March 16, 2020 12/09/2019 and 11/02/2019. DLP: 2637.[address] scans at [facility] use at least one of these dose optimization techniques: automat ed exposure control; mA and/or kV adjustment per patient size (includes targeted exams where dose is matched to clinical indication); or iterative reconstruction. CT CHEST: Lungs are well aerated. No acute pulmonary infiltrates. A few noncalcified pulmonary nodules subcenti meter in size. Largest in the right upper lobe medially measuring 5 mm. This appears stable from prev ious. Normal thyroid. No mediastinal or hilar lymphadenopathy. Normal caliber thoracic aorta. No axil galo lymphadenopathy. No evidence of progressed disease in the chest. CT ABDOMEN AND PELVIS: Diffuse fatty infiltration liver. Normal GE junction. Normal spleen. Portal vein and splenic vein esperanza ear patent. Postoperative changes about the pancreatic head and halie hepatis presumably due to Whipp le procedure. Interval removal of biliary stent since the prior examination. Resolution of the pneumo bilia. Jejunostomy tube. Normal pancreatic parenchymal enhancement. Postoperative changes about the p ancreatic head. No evidence of recurrent pancreatic head mass or obstructing lesion. Normal pancreati c duct. Adrenal glands are normal. Normal renal parenchymal enhancement. No hydronephrosis. Normal caliber ab dominal aorta. No significant upper abdominal or periaortic lymphadenopathy. No pelvic or inguinal ly mphadenopathy. Hypertrophic changes thoracic spine. CT/CT chest abd pel w con* IMPRESSION: 1. A few noncalcified subcentimeter pulmonary nodules the largest measuring 5 mm right upper lobe unchanged. 2. No mediastinal or hilar lymphadenopathy. 3. Postoperative changes whipple procedure with jejunostomy tube. No evidence of recurrent or progressed pancreatic mass. Postoperative changes about the caldera creatic head. 4. Diffuse fatty infiltration liver. No intrahepatic biliary ductal dilatation . 5. No adenopathy in the abdomen or pelvis. 6. No evidence of progressed disease in the chest abdomen or pelvis.
[2020-06-08] MEDS: iohexol 300 mg/mL 50 mL Btl PO (08:30)
[2020-06-08] MEDS: iohexol 300 mg/mL 100 mL Btl IV (09:42)
--- NOTE | 2020-06-14 | CT_ITS ---
Radiation Therapy Planning CT images; total exam DLP: 2184.04 mGy-cm MTDD
[2020-06-27 14:56] LABS: Basophils % 0.6 %; Eosinophils # 0.2 10^3/uL (0.0-0.8); Eosinophils % 3.6 %; Hematocrit 38.4 % (42.0-52.0); Hemoglobin 12.6 g/dL (11.7-16.6); Lymphocytes # 1.4 10^3/uL (0.8-4.8); Lymphocytes % 26.4 %; Mean Corpuscular HGB Conc 32.8 g/dL (30.0-36.0); Mean Corpuscular Hemoglobin 31.7 pg (28.0-34.0); Mean Corpuscular Volume 96.5 fL (80-94); Mean Platelet Volume 9.9 fL (7.4-10.4); Monocytes # 0.4 10^3/uL (0.2-0.9); Monocytes % 7.5 %; Neutrophils # 3.23 10^3/uL (1.8-7.7); Neutrophils % 61.7 %; Nucleated Red Blood Cells % 0 %; Platelet Count 201 10^3/cmm (130-400); Red Blood Count 3.98 10^6/uL (4.1-5.3); Red Cell Distribution Width 12.5 % (12.1-15.1); White Blood Count 5.2 10^3/uL (4.0-10.0)
[2020-06-27 15:42] LABS: Alanine Aminotransferase 23 U/L (0-41); Albumin Level 3.6 g/dL (3.5-5.2); Alkaline Phosphatase 73 IU/L (40-130); Anion Gap 13.5 (5-19); Aspartate Amino Transferase 25 U/L (0-40); Blood Urea Nitrogen 8 mg/dL (8-23); Cancer Antigen 19 9 26.54 U/mL (0-35); Carbon Dioxide 24 mmol/L (22-29); Chloride 105 mmol/L (98-107); Globulin 2.6 g/dL (1.3-4.6); Glomerular Filtration Rate 114.6 mL/min (90-130); Glucose 185 mg/dL (65-115); Osmolality Calculated 291 mOsm/kg (285-295); Potassium 3.5 mmol/L (3.5-5.1); Sodium 139 mmol/L (136-145); Total Bilirubin 0.2 mg/dL (0.15-1.2); Total Protein 6.2 g/dL (6.6-8.7)
--- NOTE | 2020-06-29 17:51 | ONCRAD TMN_ITS ---
Radiation Oncology Weekly Treatment Management Patient: Juan Jose Mancia MR#: [id number] : 1960 Age: 59 Sex: Male Dictated by: Dr. Brennan Jordan Date of Service: 06/28/2020 Referring Physician(s) : Dr. Hipolito Yeh Diagnosis: C25.0 - Malignant neoplasm of head of pancreas, Diagnosed 12/16/2019 (Active) Stage IIB, T2, N1, M0 pT2 pN1 M0 adenocarcinoma of the pancreatic head s/p 6 cycles of FOLFIRINOX (03/2020), followed by surgical resection (04/2020). Pathology revealed positive pancreatic neck/parenchymal margins, a positive uncinate/retroperitoneal margin, and 3 of 17 involved lymph nodes. Planned Treatment: Adjuvant concurrent chemoradiation therapy consisting of Xeloda and a total dose of 50.4 Gy in 1.8 Gy fractions. .Radiotherapy to date: Course: Pancreas 2019, Treatment Site: Pancreas 28FX, Ref. ID: [id number], Energy: 15X/6X, Dose/Fx (cGy): 180, #Fx: , Dose Correction (cGy): 0, Total Dose (cGy): 360, Start Date: 06/27/2020, Elapsed Days: 1 Reason for visit: The patient is being seen today as part of their regularly scheduled weekly on treatment visits to assess for acute toxicities from radiotherapy. Interim History: The patient reports nausea after initiating chemo. He has occasional abdominal pain, but none currently. Current Medications: Acetaminophen, claritin, famotidine, fluticasone Furoate, k-Tab, k-Tab, lORazepam, prochlorperazine Maleate, prochlorperazine Maleate. Allergies: No Known Allergies Current Complaints/Review of Systems: Constitutional - Denies lack of appetite, fatigue, fever and night sweats. Gastrointestinal - Complains of abdominal pain that is intermittent. Complains of nausea. Complains of pain / cramping which happens occasionally. Denies constipation, diarrhea, heartburn / dyspepsia and vomiting. Vital Signs: Performed on 06/28/2020 2:09 PM BMI - 36.179 kg/m2 (high), Height - 71.00 in, Weight - 259.4 lbs, Temperature - 98.8 f, Pulse - 72, Respiration - 18, O2 Sat - 98 %, Pain - 0 and BP - 132/ 87 mm(hg). Physical Exam: Appears stable, no skin erythema or desquamation. Performance Status: 1 - No physically strenuous activity, but ambulatory and able to carry out light or sedentary work (e.g. office work, light house work). (ECOG) Lab: None pending in Radiation Oncology. Test performed on 04/20/2020 12:19 PM RBC - 3.82 10 6/ul (low), HCT - 38.4 % (low), MCV - 100.5 fl (high), MCH - 34.3 pg (high), Chloride - 108 mmol/l (high), Cr Clearance (Est) - 176.5600 ml/min (high), Protein, Total - 6.3 g/dl (low) and CA 19-9 - 124.4 u/ml (high). Imaging: Radiation therapy imaging related to accurate target localization (i.e. KV, MV and CBCT) was reviewed. Appropriate changes, if any, were made to ensure treatment accuracy. Plan: The patient is tolerating therapy reasonably well. Radiotherapy will continue as planned. CPT: 44560 Signed by: Dr. Brennan Jordan 06/29/2020 5:50:23 PM
[2020-07-06 12:46] LABS: Basophils % 0.2 %; Eosinophils # 0.2 10^3/uL (0.0-0.8); Eosinophils % 3.5 %; Hematocrit 39.8 % (42.0-52.0); Hemoglobin 13.3 g/dL (11.7-16.6); Lymphocytes # 0.7 10^3/uL (0.8-4.8); Lymphocytes % 13.4 %; Mean Corpuscular HGB Conc 33.4 g/dL (30.0-36.0); Mean Corpuscular Hemoglobin 31.8 pg (28.0-34.0); Mean Corpuscular Volume 95.2 fL (80-94); Mean Platelet Volume 9.5 fL (7.4-10.4); Monocytes # 0.6 10^3/uL (0.2-0.9); Monocytes % 10.8 %; Neutrophils # 3.65 10^3/uL (1.8-7.7); Neutrophils % 71.7 %; Nucleated Red Blood Cells % 0 %; Platelet Count 209 10^3/cmm (130-400); Red Blood Count 4.18 10^6/uL (4.1-5.3); Red Cell Distribution Width 12.8 % (12.1-15.1); White Blood Count 5.1 10^3/uL (4.0-10.0)
[2020-07-06 13:13] LABS: Alanine Aminotransferase 21 U/L (0-41); Albumin Level 3.7 g/dL (3.5-5.2); Alkaline Phosphatase 71 IU/L (40-130); Anion Gap 10.5 (5-19); Aspartate Amino Transferase 21 U/L (0-40); Blood Urea Nitrogen 8 mg/dL (8-23); Calcium 8.6 mg/dL (8.5-10.5); Carbon Dioxide 25 mmol/L (22-29); Chloride 105 mmol/L (98-107); Globulin 2.5 g/dL (1.3-4.6); Glomerular Filtration Rate 114.3 mL/min (90-130); Glucose 119 mg/dL (65-115); Osmolality Calculated 283 mOsm/kg (285-295); Potassium 3.5 mmol/L (3.5-5.1); Sodium 137 mmol/L (136-145); Total Bilirubin 0.3 mg/dL (0.15-1.2); Total Protein 6.2 g/dL (6.6-8.7)
[2020-07-06 15:38] LABS: Thyroid Stimulating Hormone 1.62 uIU/mL (0.27-4.20)
--- NOTE | 2020-07-07 09:04 | ONCRAD TMN_ITS ---
Radiation Oncology Weekly Treatment Management Patient: Juan Jose Mancia MR#: [id number] : 1960 Age: 60 Sex: Male Dictated by: Dr. Brennan Jordan Date of Service: 07/05/2020 Referring Physician(s) : Dr. Hipolito Yeh Diagnosis: C25.0 - Malignant neoplasm of head of pancreas, Diagnosed 12/16/2019 (Active) Stage IIB, T2, N1, M0 pT2 pN1 M0 adenocarcinoma of the pancreatic head s/p 6 cycles of FOLFIRINOX (03/2020), followed by surgical resection (04/2020). Pathology revealed positive pancreatic neck/parenchymal margins, a positive uncinate/retroperitoneal margin, and 3 of 17 involved lymph nodes. Planned Treatment: Adjuvant concurrent chemoradiation therapy consisting of Xeloda and a total dose of 50.4 Gy in 1.8 Gy fractions. Radiotherapy to date: Course: Pancreas 2019, Treatment Site: Pancreas 28FX, Ref. ID: [id number], Energy: 15X/6X, Dose/Fx (cGy): 180, #Fx: , Dose Correction (cGy): 0, Total Dose (cGy): 1,260, Start Date: 06/27/2020, Elapsed Days: 8 Reason for visit: The patient is being seen today as part of their regularly scheduled weekly on treatment visits to assess for acute toxicities from radiotherapy. Interim History: The patient reports tolerable nausea after taking his chemotherapy. The patient has antiemetic medication which appropriately manages his nausea. He reports no other symptoms/complaints today. Current Medications: Acetaminophen, claritin, famotidine, fluticasone Furoate, k-Tab, k-Tab, lORazepam, prochlorperazine Maleate, prochlorperazine Maleate. Allergies: No Known Allergies Current Complaints/Review of Systems: Constitutional - Complains of mild fatigue. Denies lack of appetite, fever, night sweats and change in weight. Gastrointestinal - Complains of nausea. Denies abdominal pain, constipation, diarrhea, heartburn / dyspepsia and vomiting. Vital Signs: Performed on 07/05/2020 2:03 PM BMI - 36.179 kg/m2 (high), Height - 71.00 in, Weight - 259.4 lbs, Temperature - 98.5 f, Pulse - 72, Respiration - 20, O2 Sat - 98 %, Pain - 0 and BP - 138/ 93 mm(hg)(/high). Physical Exam: Lungs are clear to auscultation bilaterally. Performance Status: 1 - No physically strenuous activity, but ambulatory and able to carry out light or sedentary work (e.g. office work, light house work). (ECOG) Lab: None pending in Radiation Oncology. Imaging: Radiation therapy imaging related to accurate target localization (i.e. KV, MV and CBCT) was reviewed. Appropriate changes, if any, were made to ensure treatment accuracy. Plan: The patient is tolerating therapy reasonably well. Radiotherapy will continue as planned. CPT: 67136 Signed by: Dr. Brennan Jordan 07/07/2020 9:03:29 AM
--- NOTE | 2020-07-11 11:01 | ONC FU_ITS ---
[facility] Patient Note Patient: Gavino Ingram Unit #: [id number]: 1960 Dictated By: Alfredo BritoDate of Visit: Jul 06, 2020 Onc MED Follow-Up/Prog Note Chief Complaint: Pancreatic cancer. History of Present Illness: Mr Ingram is a 60 year-old man with adenocarcinoma of the pancreas, pathologic stage IIB (pT2, pN1, M0). On 11/02/2019 he presented to the emergency room with jaundice. His total bilirubin at that time was 13.4 mg/dL. The liver enzymes were moderately elevated with alkaline phosphatase 257/130 IU/L, SGOT 98/40 U/L and SGPT 105/41 U/L. Abdominal CT scan showed significantly dilated biliary tree and common hepatic duct with a transition point at the common hepatic-common bile duct junction. The findings were suspicious for underlying stricture or occult mass. There were several mildly enlarged portacaval lymph nodes measuring up to 2 cm. He was transferred to [facility] for admission. On 11/03/2019 he underwent ERCP with placement of biliary stent. He was noted to have a malignant appearing stricture in the mid common bile duct, suspicious for pancreatic neoplasm. On 12/01/2019 he underwent repeat ERCP with placement of partially covered metal stent, and he underwent endoscopic ultrasound with FNA biopsy of a 3.5 x 2.7 cm mass lesion involving the head of the pancreas. The mass was noted to be in close proximity to the vessels but without overt infiltration. There was no celiac axis adenopathy appreciated. Cytology on the FNA biopsy was positive for adenocarcinoma. Staging CT scans of the chest, abdomen, and pelvis on 12/09/2019 showed multiple small bilateral noncalcified pulmonary nodules ranging in size from 2 to 4 mm. There was no evidence of metastatic involvement in the liver. A rounded focus surrounding the pancreatic head measuring 2.9 x 3.6 cm, including adjacent inflammatory changes, was noted to partially obscure a 3 x 1.7 cm pancreatic head mass which had been noted on the preoperative study. Also noted was a necrotic appearing mass/lymph node within the pancreatic head measuring 1.9 cm. A mildly prominent gastrohepatic lymph node measured 1.5 cm. There was no mesenteric adenopathy noted. He was seen by Dr. Davidson for surgical consultation, and then underwent placement of Port-A-Cath venous access device in preparation for neoadjuvant chemotherapy. Dr Solano had seen him initially on 12/16/2019. As he was generally in good health and had excellent performance status, it was recommended that he pursue a trial of neoadjuvant chemotherapy with FOLFIRINOX. He completed 6 cycles of treatment between December and March 2020. Toxicities included fatigue, neutropenia, and neuropathy. His cycle 3 had to be delayed by 2 weeks, and at that point he also required a dose reduction. Overall, though, he tolerated the treatment well. He did show a significant decline in his CA-19-9 level, from 339.2 U/mL to 124.4 U/mL. On 04/26/2020 he underwent exploratory laparotomy with pancreaticoduodenectomy, portal (abdominal) lymph node dissection, feeding jejunostomy, omental pedicle flap, and cholecystectomy. On visual inspection, the gallbladder appeared acutely inflamed. There also appeared to be a lot of inflammation in the pancreas, and there were 2 large cyst on his pancreas, consistent with probable pancreatitis. There is a significant desmoplastic reaction in the peritoneum. There was no gross evidence of metastatic disease. Pathology showed well-differentiated ductal adenocarcinoma measuring 3.3 cm in greatest dimension. The bile duct margin, proximal margin, and distal margin were uninvolved, but the pancreatic neck/parenchymal margin and the uncinated/retroperitoneal margin were both involved by invasive carcinoma. There was also involvement in 3 of 17 lymph nodes. Pathologic staging was pT2, pN1. His gallbladder, incidentally, showed marked chronic cholecystitis. He underwent successful pancreaticoduodenectomy on 04/26/2020. He recovered well from the procedure. Due to the involved surgical margins and the lymph node involvement, he was advised to undergo postoperative radiation concurrently with Xeloda for chemosensitization. Mr Ingram began his postoperative treatment on 06/27/2020. Mr Ingram is here today for followup for his Xeloda portion of his concurrent treatment. He states he is very draggy and has had dramatic fatigue . He states is been difficult to get out of bed at times. He is not being very active. He states he just feels weak and washed out. He denies nausea or vomiting. He has had no fever or chills. He denies any COVID-19 symptoms, known exposure or personal testing. He denies any new pain. He states his appetite is okay. He denies any shortness of breath, cough or hemoptysis. He denies any diarrhea or constipation. He denies any urinary symptoms. He has had some sinus drainage that really made his throat really sore. He is begin [id number] Sudafed and states his sinus drainage has dramatically improved and the throat feels much better overall. He denies any pain. His biggest concern is that he is just weak and washed out. He states is gotten worse over the last week. His ECOG is 2. Past Medical History: Allergic rhinitis History of peptic ulcer disease Hypertension Past Surgical History: ERCP with placement of metal stent and with EUS/FNA biopsy of pancreatic head mass in 2019 ERCP with biliary stent placement in 2019 Allergies: No Known Allergies. Medications: Acetaminophen 1 - 2 Tablet (of 500 mg) Oral at bedtime Claritin 1 Tablet (of 10 mg) Oral daily Famotidine 1 Tablet (of 40 mg) Oral daily Fluticasone Furoate Aerosol Powder, Breath Activated Inhalation K-Tab 1 Tablet (of 10 meq) Tablet, controlled release Oral daily LORazepam 0.5 - 1 Tablet (of 1 mg) Oral t.i.d. PRN Prochlorperazine Maleate 1 Tablet (of 10 mg) Oral PRN Family History: His maternal grandfather is : prostate cancer. Father at age 83 with complications of diabetes. Mother of stroke at age 85. She also had diabetes and she has been treated for breast cancer. A brother and a sister are in good health. Social History: Mr. Ingram is and he is an unknown. Mr. Ingram has never smoked. He is a former drinker. He had smoked a little as a teenager, but none since then. He had some heavy alcohol use in the past, but he quit drinking 40 years ago. Review Of Symptoms: Constitutional Denies fevers, chills, night sweats or weight loss. He has has extreme fatigue. He states this deftly worsened over the last week. He states he just feels washed out. He states it is all he can do to get up and go. Allergic/Immunologic No reactions. Eyes Denies significant visual changes. No diplopia. No amaurosis. ENMT Denies changes in hearing, sore throat, mouth sores, difficulty or changes in swallowing ability. He states he has had some sinus drainage off and on he did miner pick some [id number] Sudafed and has been taking Claritin. He states between the 2 his sinus drainage is better and his throat feels better overall as well 2. Hematologic/Lymphatic Denies easy bruising or bleeding. The patient denies any tender or palpable lymph nodes. Respiratory Denies dyspnea on exertion, chest pain, cough or hemoptysis. Denies orthopnea. He states he gets a little short of breath with alot of exertion. Cardiovascular Denies anginal chest pain, palpitations or orthopnea. Gastrointestinal Denies vomiting, diarrhea, GI bleeding, or constipation. Denies change in bowel habits and/or stool color, no heartburn or early satiety. has a little nausea today but no emesis. Genitourinary (M) Denies hematuria, dysuria, increased frequency, urgency, hesitancy or incontinence. Musculoskeletal Denies joint pain, swelling or redness. No decreased range of motion. Integumentary Denies chronic rashes, inflammation, ulcerations or skin changes. Neurologic Denies headache, blurred vision, and no areas of focal weakness or numbness. Normal gait. No sensory problems. Psychiatric Denies insomnia, depression, tiffani or mood swings. Vital Signs: Performed on Jul 06, 2020 14:09 Height - 71.00 in Weight - 261.0 lbs (HIGH) BSA - 2.36 sq.m BMI - 36.40 (HIGH) Temperature - 98.2 F (LOW) Pulse - 67 /min Respiration - 24 /min BP - 160/105 mm(hg) (HIGH) O2 Sat - 100 % Pain - 0,2 - Ambulatory/capable of all self-care, unable to perform any work activities. Up and about more than 50% of waking hours. (ECOG) Physical Examination: Constitutional Alert, oriented, no acute distress. Skin pink, warm and dry. Head Normocephalic; atraumatic. Eyes Conjunctivae and sclerae are clear and without icterus. Pupils are reactive and equal. Wears corrective lens (glasses) ENMT No oral exudates, ulcers, masses, thrush or mucositis. Oropharynx clear. Tongue normal. Neck Supple without masses or thyromegaly. No jugular venous distension. Hematologic/Lymphatic No petechiae or purpura. No tender or palpable lymph nodes in the cervical or supraclavicular areas. Respiratory Lungs are clear to auscultation without rhonchi or wheezing. Cardiovascular Regular rate and rhythm of heart without murmurs,clicks, gallops or rubs. Abdomen Non-tender, non-distended, no masses or ascites. Good bowel sounds noted in all quads. No guarding or rebound tenderness. No pulsatile masses. Back/Spine Non-tender to palpation. Extremities No visible deformities, no cyanosis, clubbing or edema. Musculoskeletal No tenderness or swelling, normal range of motion without obvious weakness. Integumentary No rashes or lesions. Neurologic No sensory or motor deficits, normal cerebellar function, normal gait. Psychiatric Alert and oriented times three. Coherent speech. Verbalizes understanding of our discussions today. Laboratory:Test performed on Jul 06, 2020 12:30 Sodium 137 mmol/L TSH 1.62 uIU/mL Potassium 3.5 mmol/L Chloride 105 mmol/L CO2 25 mmol/L Anion Gap 10.5 BUN 8 mg/dL Creatinine 0.7 mg/dL Cr Clearance (Est) 183.2200 mL/min eGFR 114.3 mL/min Glucose 119 mg/dL Osmolality - Calculated 283 mOsm/kg Calcium 8.6 mg/dL Protein, Total 6.2 g/dL Albumin 3.7 g/dL Globulin 2.5 g/dL Bilirubin, Total 0.3 mg/dL ALT (SGPT) 21 U/L AST (SGOT) 21 U/L Alkaline Phosphatase 71 IU/L WBC 5.1 10 3/uL RBC 4.18 10 6/uL HGB 13.3 g/dL HCT 39.8 % MCV 95.2 fL MCH 31.8 pg MCHC 33.4 g/dL RDW 12.8 % Platelet Count 209 10 3/cmm MPV 9.5 fL Neutrophils 3.65 10 3/uL Lymphocytes 0.7 10 3/uL Monocytes 0.6 10 3/uL Eosinophils 0.2 10 3/uL Basophils 0.0 10 3/uL Neutrophil % 71.7 % Lymphocyte % 13.4 % Monocyte % 10.8 % Eosinophil % 3.5 % Basophils % 0.2 % NRBC % 0 % Test performed on Apr 20, 2020 12:19 CA 19-9 124.4 U/mL Test performed on Mar 09, 2020 09:14 Magnesium 2.1 mg/dL Impression: 1. Patient with well differentiated adenocarcinoma of the head of the pancreas, pathologic stage IIB (pT2, pN1, M0). 2. He underwent ERCP with placement of biliary stent on 11/03/2019, and on 12/01/2019 he underwent repeat ERCP with placement of partially covered metal stent and endoscopic ultrasound with FNA biopsy of pancreatic head mass. 3. From December through March 2020 he completed 6 cycles of neoadjuvant FOLFIRINOX chemotherapy. He required a dose reduction for neutropenia and neuropathy, but overall he tolerated the treatment well. 4. On 04/26/2020 he underwent exploratory laparotomy with pancreaticoduodenectomy, portal (abdominal) lymph node dissection, feeding jejunostomy, omental pedicle flap, and cholecystectomy. Pathology showed well-differentiated ductal adenocarcinoma measuring 3.3 cm in greatest dimension. There was involvement in 3/17 lymph nodes. In addition, the pancreatic neck/parenchymal and the uncinated/retroperitoneal margins were involved by invasive carcinoma. 5. His initial CT scans showed multiple small noncalcified pulmonary nodules bilaterally, ranging in size from 2 to 4 mm. These were nonspecific, but early metastatic disease was not excluded. These appeared stable on his 03/16/[address] scans. 6. He has a positive family history of breast cancer affecting his mother. His other medical illnesses include: 7. Hypertension. 8. Allergic rhinitis. 9. GERD and history of peptic ulcer disease. He underwent successful pancreaticoduodenectomy on 04/26/2020. He recovered well from the procedure. Due to the involved surgical margins and the lymph node involvement, he was advised to undergo postoperative radiation concurrently with Xeloda for chemosensitization. Mr Ingram began his postoperative treatment on 06/27/2020. Plan: 1. Reduce Xeloda to 1/2 of his current dose due to fatigue and decreased performance status. His prescription is for 2000 mg BID on the days of radiation only. Mr Ingram states he is taking 1 tablet twice daily. I did tell him to decrease to once a day and re-evaluate his fatigue next week. 2. Continue antiemetics as needed at home. He states he is only had to take them a couple of times. 3. Today's labs were reviewed in detail and discussed with Mr. Ingram and a copy was given to him. WBC 6.1, hemoglobin 13.3, platelets 209,000 ANC is 3650 potassium 3.5 random glucose 119 creatinine 0.7 LFTs are normal. His last 19 9 was on June 27, 2020 and was 26.54. 4. We will plan to see him back in 1 week with repeat CBC CMP and reevaluate his fatigue at that time. 5. Mr. Ingram was instructed to contact us in the interim if questions or problems arise. Signed By: Alfredo Brito-, AOCNP Royal Solano MD <<Signature on File>>
== END 2020-07-06 23:59 | disposition home or self-care (01) ==
LOC: ONCMED 05:34
PROVIDERS: Absent Provider Radiology Radiation Oncology; PCP Nurse Practitioner; Visit Provider Nurse Practitioner
DX: Z51.0 Encounter for antineoplastic radiation therapy (principal); C25.0 Malignant neoplasm of head of pancreas; C77.8 Secondary and unspecified malignant neoplasm of lymph nodes of multiple regions; I10 Essential (primary) hypertension; J30.9 Allergic rhinitis, unspecified; K21.9 Gastro-esophageal reflux disease without esophagitis; Z80.3 Family history of malignant neoplasm of breast; Z87.11 Personal history of peptic ulcer disease
CPT/HCPCS: 36591; 71260; 74177; 77014; 77300; 77301; 77334; 77338; 77386; 77470; 80053; 84443; 85025; 86301; 99214; Q9967

== ENCOUNTER 2020-08-03 05:30 | Outpatient (RCR) | payer BC, SELFPAY ==
[2020-07-13] MEDS: alteplase 1 mg/mL SDV 2 mL 2 MG IV (13:10)
[2020-07-13 13:59] LABS: Basophils % 0.5 %; Eosinophils # 0.3 10^3/uL (0.0-0.8); Eosinophils % 6.3 %; Hematocrit 39.4 % (42.0-52.0); Hemoglobin 13.1 g/dL (11.7-16.6); Lymphocytes # 0.4 10^3/uL (0.8-4.8); Lymphocytes % 9.5 %; Mean Corpuscular HGB Conc 33.2 g/dL (30.0-36.0); Mean Corpuscular Hemoglobin 31.6 pg (28.0-34.0); Mean Corpuscular Volume 94.9 fL (80-94); Mean Platelet Volume 10.1 fL (7.4-10.4); Monocytes # 0.4 10^3/uL (0.2-0.9); Monocytes % 9.7 %; Neutrophils # 3.27 10^3/uL (1.8-7.7); Neutrophils % 73.8 %; Nucleated Red Blood Cells % 0 %; Platelet Count 190 10^3/cmm (130-400); Red Blood Count 4.15 10^6/uL (4.1-5.3); Red Cell Distribution Width 13.6 % (12.1-15.1); White Blood Count 4.4 10^3/uL (4.0-10.0)
[2020-07-13 14:28] LABS: Alanine Aminotransferase 22 U/L (0-41); Albumin Level 3.7 g/dL (3.5-5.2); Alkaline Phosphatase 76 IU/L (40-130); Aspartate Amino Transferase 25 U/L (0-40); Blood Urea Nitrogen 8 mg/dL (8-23); Calcium 8.4 mg/dL (8.5-10.5); Carbon Dioxide 24 mmol/L (22-29); Chloride 105 mmol/L (98-107); Globulin 2.4 g/dL (1.3-4.6); Glomerular Filtration Rate 114.3 mL/min (90-130); Glucose 155 mg/dL (65-115); Osmolality Calculated 287 mOsm/kg (285-295); Sodium 138 mmol/L (136-145); Total Bilirubin 0.3 mg/dL (0.15-1.2); Total Protein 6.1 g/dL (6.6-8.7)
--- NOTE | 2020-07-14 08:09 | ONCRAD TMN_ITS ---
Radiation Oncology Weekly Treatment Management Patient: Gavino Ingram MR#: [id number] : 1960 Age: 60 Sex: Male Dictated by: Dr. Brennan Jordan Date of Service: 07/12/2020 Referring Physician(s) : Dr. Hipolito Yeh Diagnosis: C25.0 - Malignant neoplasm of head of pancreas, Diagnosed 12/16/2019 (Active) Stage IIB, T2, N1, M0 pT2 pN1 M0 adenocarcinoma of the pancreatic head s/p 6 cycles of FOLFIRINOX (03/2020), followed by surgical resection (04/2020). Pathology revealed positive pancreatic neck/parenchymal margins, a positive uncinate/retroperitoneal margin, and 3 of 17 involved lymph nodes. Planned Treatment: Adjuvant concurrent chemoradiation therapy consisting of Xeloda and a total dose of 50.4 Gy in 1.8 Gy fractions. Radiotherapy to date: Course: Pancreas 2019, Treatment Site: Pancreas 28FX, Ref. ID: [id number], Energy: 15X/6X, Dose/Fx (cGy): 180, #Fx: , Dose Correction (cGy): 0, Total Dose (cGy): 2,160, Start Date: 06/27/2020, Elapsed Days: 15 Reason for visit: The patient is being seen today as part of their regularly scheduled weekly on treatment visits to assess for acute toxicities from radiotherapy. Interim History: The patient reports occasional nausea, no fatigue, and his weight is stable. Current Medications: Acetaminophen, amoxicillin-Pot Clavulanate, claritin, famotidine, fluticasone Furoate, k-Tab, k-Tab, lORazepam, prochlorperazine Maleate, prochlorperazine Maleate. Allergies: No Known Allergies Vital Signs: Performed on 07/12/2020 2:06 PM BMI - 35.984 kg/m2 (high), Height - 71.00 in, Weight - 258.0 lbs, Temperature - 98.4 f, Pulse - 74, Respiration - 20, O2 Sat - 98 %, Pain - 0, Fatigue - 0 and BP - 144/ 94 mm(hg)(high). Physical Exam: Appears stable, no skin erythema or desquamation. Lungs are clear to auscultation bilaterally. Performance Status: 2 - Ambulatory/capable of all self-care, unable to perform any work activities. Up and about more than 50% of waking hours. (ECOG) Lab: None pending in Radiation Oncology. Test performed on 04/20/2020 12:19 PM CA 19-9 - 124.4 u/ml (high), Test performed on 07/06/2020 12:30 PM HCT - 39.8 % (low), MCV - 95.2 fl (high), Lymphocytes - 0.7 10 3/ul (low), Cr Clearance (Est) - 183.2200 ml/min (high), Glucose - 119 mg/dl (high), Osmolality - Calculated - 283 mosm/kg (low) and Protein, Total - 6.2 g/dl (low). Imaging: Radiation therapy imaging related to accurate target localization (i.e. KV, MV and CBCT) was reviewed. Appropriate changes, if any, were made to ensure treatment accuracy. Plan: The patient is tolerating therapy reasonably well. Radiotherapy will continue as planned. CPT: 70848 Signed by: Dr. Brennan Jordan 07/14/2020 8:08:18 AM
--- NOTE | 2020-07-17 16:05 | ONC FU_ITS ---
[facility] Patient Note Patient: Gaivno Ingram Unit #: [id number]: 1960 Dictated By: Alfredo BritoDate of Visit: Jul 13, 2020 Onc MED Follow-Up/Prog Note Chief Complaint: Pancreatic cancer. History of Present Illness: Mr Ingram is a 60 year-old man with adenocarcinoma of the pancreas, pathologic stage IIB (pT2, pN1, M0). On 11/02/2019 he presented to the emergency room with jaundice. His total bilirubin at that time was 13.4 mg/dL. The liver enzymes were moderately elevated with alkaline phosphatase 257/130 IU/L, SGOT 98/40 U/L and SGPT 105/41 U/L. Abdominal CT scan showed significantly dilated biliary tree and common hepatic duct with a transition point at the common hepatic-common bile duct junction. The findings were suspicious for underlying stricture or occult mass. There were several mildly enlarged portacaval lymph nodes measuring up to 2 cm. He was transferred to [facility] for admission. On 11/03/2019 he underwent ERCP with placement of biliary stent. He was noted to have a malignant appearing stricture in the mid common bile duct, suspicious for pancreatic neoplasm. On 12/01/2019 he underwent repeat ERCP with placement of partially covered metal stent, and he underwent endoscopic ultrasound with FNA biopsy of a 3.5 x 2.7 cm mass lesion involving the head of the pancreas. The mass was noted to be in close proximity to the vessels but without overt infiltration. There was no celiac axis adenopathy appreciated. Cytology on the FNA biopsy was positive for adenocarcinoma. Staging CT scans of the chest, abdomen, and pelvis on 12/09/2019 showed multiple small bilateral noncalcified pulmonary nodules ranging in size from 2 to 4 mm. There was no evidence of metastatic involvement in the liver. A rounded focus surrounding the pancreatic head measuring 2.9 x 3.6 cm, including adjacent inflammatory changes, was noted to partially obscure a 3 x 1.7 cm pancreatic head mass which had been noted on the preoperative study. Also noted was a necrotic appearing mass/lymph node within the pancreatic head measuring 1.9 cm. A mildly prominent gastrohepatic lymph node measured 1.5 cm. There was no mesenteric adenopathy noted. He was seen by Dr. Davidson for surgical consultation, and then underwent placement of Port-A-Cath venous access device in preparation for neoadjuvant chemotherapy. Dr Solano had seen him initially on 12/16/2019. As he was generally in good health and had excellent performance status, it was recommended that he pursue a trial of neoadjuvant chemotherapy with FOLFIRINOX. He completed 6 cycles of treatment between December and March 2020. Toxicities included fatigue, neutropenia, and neuropathy. His cycle 3 had to be delayed by 2 weeks, and at that point he also required a dose reduction. Overall, though, he tolerated the treatment well. He did show a significant decline in his CA-19-9 level, from 339.2 U/mL to 124.4 U/mL. On 04/26/2020 he underwent exploratory laparotomy with pancreaticoduodenectomy, portal (abdominal) lymph node dissection, feeding jejunostomy, omental pedicle flap, and cholecystectomy. On visual inspection, the gallbladder appeared acutely inflamed. There also appeared to be a lot of inflammation in the pancreas, and there were 2 large cyst on his pancreas, consistent with probable pancreatitis. There is a significant desmoplastic reaction in the peritoneum. There was no gross evidence of metastatic disease. Pathology showed well-differentiated ductal adenocarcinoma measuring 3.3 cm in greatest dimension. The bile duct margin, proximal margin, and distal margin were uninvolved, but the pancreatic neck/parenchymal margin and the uncinated/retroperitoneal margin were both involved by invasive carcinoma. There was also involvement in 3 of 17 lymph nodes. Pathologic staging was pT2, pN1. His gallbladder, incidentally, showed marked chronic cholecystitis. He underwent successful pancreaticoduodenectomy on 04/26/2020. He recovered well from the procedure. Due to the involved surgical margins and the lymph node involvement, he was advised to undergo postoperative radiation concurrently with Xeloda for chemosensitization. Mr Ingram began his postoperative treatment on 06/27/2020. Mr Ingram is here today for followup for his Xeloda portion of his concurrent treatment. He presented for his follow-up on July 06, 2020 with significant/ dramatic fatigue . His dose of Xeloda was reduced at that time. He is here today for follow-up. He states overall he is feeling much better. He is able to get some things done this week. He states he feels back to being normal. He denies any nausea or vomiting. He denies any fever or chills. He has had no symptoms of infection for at least the last 72 hours. He states his breathing is good. His appetite is good. He denies diarrhea or constipation. He denies any neuropathy or skin changes. He states that weakness overall is much better. He has had some sinus drainage that he takes fake Sudafed for and this relieves his symptoms. He is doing much better overall per his report. His ECOG is 1. Past Medical History: Allergic rhinitis History of peptic ulcer disease Hypertension Past Surgical History: ERCP with placement of metal stent and with EUS/FNA biopsy of pancreatic head mass in 2019 ERCP with biliary stent placement in 2019 Allergies: No Known Allergies. Medications: Acetaminophen 1 - 2 Tablet (of 500 mg) Oral at bedtime Claritin 1 Tablet (of 10 mg) Oral daily Famotidine 1 Tablet (of 40 mg) Oral daily Fluticasone Furoate Aerosol Powder, Breath Activated Inhalation K-Tab 1 Tablet (of 10 meq) Tablet, controlled release Oral daily LORazepam 0.5 - 1 Tablet (of 1 mg) Oral t.i.d. PRN Prochlorperazine Maleate 1 Tablet (of 10 mg) Oral PRN Family History: His maternal grandfather is : prostate cancer. Father at age 83 with complications of diabetes. Mother of stroke at age 85. She also had diabetes and she has been treated for breast cancer. A brother and a sister are in good health. Social History: Mr. Ingram is and he is an unknown. Mr. Ingram has never smoked. He is a former drinker. He had smoked a little as a teenager, but none since then. He had some heavy alcohol use in the past, but he quit drinking 40 years ago. Review Of Symptoms: Constitutional Denies fevers, chills, night sweats or weight loss. He states he feels much better on the reduced dose of Xeloda. He states I been able to get things done this week . Allergic/Immunologic No reactions. Eyes Denies significant visual changes. No diplopia. No amaurosis. ENMT Denies changes in hearing, sore throat, mouth sores, difficulty or changes in swallowing ability. He states he has had some sinus drainage off and on he did [employer] some [id number] Sudafed and has been taking Claritin. He states between the 2 his sinus drainage is better and his throat feels better overall as well. Hematologic/Lymphatic Denies easy bruising or bleeding. The patient denies any tender or palpable lymph nodes. Respiratory Denies dyspnea on exertion, chest pain, cough or hemoptysis. Denies orthopnea. He states he gets a little short of breath with alot of exertion. Cardiovascular Denies anginal chest pain, palpitations or orthopnea. Gastrointestinal Denies vomiting, diarrhea, GI bleeding, or constipation. Denies change in bowel habits and/or stool color, no heartburn or early satiety. He states he has a little nausea with the pills but it is not severe and does not require medication. Genitourinary (M) Denies hematuria, dysuria, increased frequency, urgency, hesitancy or incontinence. Musculoskeletal Denies joint pain, swelling or redness. No decreased range of motion. Integumentary Denies chronic rashes, inflammation, ulcerations or skin changes. Neurologic Denies headache, blurred vision, and no areas of focal weakness or numbness. Normal gait. No sensory problems. Psychiatric Denies insomnia, depression, tiffani or mood swings. Vital Signs: Performed on Jul 13, 2020 14:36 Height - 71.00 in Weight - 259.8 lbs (HIGH) BSA - 2.36 sq.m BMI - 36.23 (HIGH) Temperature - 98.4 F Pulse - 65 /min Respiration - 24 /min BP - 148/97 mm(hg) (HIGH) O2 Sat - 98 % Pain - 0,1 - No physically strenuous activity, but ambulatory and able to carry out light or sedentary work (e.g. office work, light house work). (ECOG) Physical Examination: Constitutional Alert, oriented, no acute distress. Skin pink, warm and dry. Head Normocephalic; atraumatic. Eyes Conjunctivae and sclerae are clear and without icterus. Pupils are reactive and equal. Wears corrective lens (glasses) Neck Supple without masses or thyromegaly. No jugular venous distension. Respiratory Lungs are clear to auscultation without rhonchi or wheezing. Cardiovascular Regular rate and rhythm of heart without murmurs,clicks, gallops or rubs. Abdomen Non-tender, non-distended, no masses or ascites. Good bowel sounds noted in all quads. No guarding or rebound tenderness. No pulsatile masses. Back/Spine Non-tender to palpation. Extremities No visible deformities, no cyanosis, clubbing or edema. Musculoskeletal No tenderness or swelling, normal range of motion without obvious weakness. Integumentary No rashes or lesions. Neurologic No sensory or motor deficits, normal cerebellar function, normal gait. Psychiatric Alert and oriented times three. Coherent speech. Verbalizes understanding of our discussions today. Laboratory:Test performed on Jul 13, 2020 13:02 Sodium 138 mmol/L Potassium 3.0 mmol/L Chloride 105 mmol/L CO2 24 mmol/L Anion Gap 12.0 BUN 8 mg/dL Creatinine 0.7 mg/dL Cr Clearance (Est) 182.38 mL/min eGFR 114.3 mL/min Glucose 155 mg/dL Osmolality - Calculated 287 mOsm/kg Calcium 8.4 mg/dL Protein, Total 6.1 g/dL Albumin 3.7 g/dL Globulin 2.4 g/dL Bilirubin, Total 0.3 mg/dL ALT (SGPT) 22 U/L AST (SGOT) 25 U/L Alkaline Phosphatase 76 IU/L WBC 4.4 10 3/uL RBC 4.15 10 6/uL HGB 13.1 g/dL HCT 39.4 % MCV 94.9 fL MCH 31.6 pg MCHC 33.2 g/dL RDW 13.6 % Platelet Count 190 10 3/cmm MPV 10.1 fL Neutrophils 3.27 10 3/uL Lymphocytes 0.4 10 3/uL Monocytes 0.4 10 3/uL Eosinophils 0.3 10 3/uL Basophils 0.0 10 3/uL Neutrophil % 73.8 % Lymphocyte % 9.5 % Monocyte % 9.7 % Eosinophil % 6.3 % Basophils % 0.5 % NRBC % 0 % Test performed on Jul 06, 2020 12:30 TSH 1.62 uIU/mL Impression: 1. Patient with well differentiated adenocarcinoma of the head of the pancreas, pathologic stage IIB (pT2, pN1, M0). 2. He underwent ERCP with placement of biliary stent on 11/03/2019, and on 12/01/2019 he underwent repeat ERCP with placement of partially covered metal stent and endoscopic ultrasound with FNA biopsy of pancreatic head mass. 3. From December through March 2020 he completed 6 cycles of neoadjuvant FOLFIRINOX chemotherapy. He required a dose reduction for neutropenia and neuropathy, but overall he tolerated the treatment well. 4. On 04/26/2020 he underwent exploratory laparotomy with pancreaticoduodenectomy, portal (abdominal) lymph node dissection, feeding jejunostomy, omental pedicle flap, and cholecystectomy. Pathology showed well-differentiated ductal adenocarcinoma measuring 3.3 cm in greatest dimension. There was involvement in 3/17 lymph nodes. In addition, the pancreatic neck/parenchymal and the uncinated/retroperitoneal margins were involved by invasive carcinoma. 5. His initial CT scans showed multiple small noncalcified pulmonary nodules bilaterally, ranging in size from 2 to 4 mm. These were nonspecific, but early metastatic disease was not excluded. These appeared stable on his 03/16/[address] scans. 6. He has a positive family history of breast cancer affecting his mother. His other medical illnesses include: 7. Hypertension. 8. Allergic rhinitis. 9. GERD and history of peptic ulcer disease. He underwent successful pancreaticoduodenectomy on 04/26/2020. He recovered well from the procedure. Due to the involved surgical margins and the lymph node involvement, he was advised to undergo postoperative radiation concurrently with Xeloda for chemosensitization. Mr Ingram began his postoperative treatment on 06/27/2020. Plan: 1. We will try to increase his Xeloda to 1 tablet at night and 1 in the morning over the weekend and see how he does. We have low tolerance for decreasing performance status. If he begins to feel the significant fatigue he will resume his Xeloda dosing at 1 tablet daily. (His prescription is for 2000 mg BID on the days of radiation only. Mr Ingram states he was taking 1 tablet twice daily when the fatigue was so severe). 2. Continue antiemetics as needed at home. He states he is only had to take them a couple of times. 3. Today's labs were reviewed in detail and discussed with Mr. Ingram and a copy was given to him. WBC 4.4, hemoglobin 13.1, platelets 190,000 ANC is 3300 potassium 3.0 random glucose 155 creatinine 0.7 LFTs are normal. His last CA 19-9 was on June 27, 2020 and was 26.54. He states he will take 2 potassium tablets daily. 4. We will plan to see him back in 1 week with repeat CBC CMP and reevaluate his fatigue at that time. 5. Mr. Ingram was instructed to contact us in the interim if questions or problems arise. Signed By: Alfredo Brito-, [facility] Royal Solano MD <<Signature on File>>
--- NOTE | 2020-07-19 17:34 | ONCRAD TMN_ITS ---
Radiation Oncology Weekly Treatment Management Patient: Juan Jose Mancia MR#: [id number] : 1960 Age: 60 Sex: Male Dictated by: Dr. Brennan Jordan Date of Service: 07/19/2020 Referring Physician(s) : Dr. Hipolito Yeh Diagnosis: pT2 pN1 M0 adenocarcinoma of the pancreatic head s/p 6 cycles of FOLFIRINOX (03/2020), followed by surgical resection (04/2020). Pathology revealed positive pancreatic neck/parenchymal margins, a positive uncinate/retroperitoneal margin, and 3 of 17 involved lymph nodes. Planned Treatment: Adjuvant concurrent chemoradiation therapy consisting of Xeloda and a total dose of 50.4 Gy in 1.8 Gy fractions. Radiotherapy to date: Course: Pancreas 2019, Treatment Site: Pancreas 28FX, Ref. ID: [id number], Energy: 15X/6X, Dose/Fx (cGy): 180, #Fx: , Dose Correction (cGy): 0, Total Dose (cGy): 3,060, Start Date: 06/27/2020, Elapsed Days: Reason for visit: The patient is being seen today as part of their regularly scheduled weekly on treatment visits to assess for acute toxicities from radiotherapy. Interim History: The patient reports an episode of abdominal pain which occurred on Saturday and subsequently self resolved. He reports no nausea, vomiting, or diarrhea. Current Medications: Acetaminophen, amoxicillin-Pot Clavulanate, claritin, famotidine, fluticasone Furoate, k-Tab, k-Tab, lORazepam, prochlorperazine Maleate, prochlorperazine Maleate. Allergies: No Known Allergies Current Complaints/Review of Systems: Constitutional - Complains of moderate fatigue. Complains of change in weight which he is down 3.2 lbs. since last OTV. Denies lack of appetite, fever and night sweats. Gastrointestinal - Complains of moderate abdominal pain located in the upper abdomen which happened on Saturday and lasted all day. Does not report of any pain today. Denies constipation, diarrhea, heartburn / dyspepsia, nausea and vomiting. Vital Signs: Performed on 07/19/2020 1:56 PM BMI - 35.789 kg/m2 (high), Height - 71.00 in, Weight - 256.6 lbs, Temperature - 96.3 f, Pulse - 73, Respiration - 20, O2 Sat - 98 %, Pain - 0 and BP - 142/ 97 mm(hg)(high). Physical Exam: Appears stable, no skin erythema or desquamation. Performance Status: 1 - No physically strenuous activity, but ambulatory and able to carry out light or sedentary work (e.g. office work, light house work). (ECOG) Lab: None pending in Radiation Oncology. Test performed on 04/20/2020 12:19 PM CA 19-9 - 124.4 u/ml (high), Test performed on 07/13/2020 1:02 PM HCT - 39.4 % (low), MCV - 94.9 fl (high), Lymphocytes - 0.4 10 3/ul (low), Potassium - 3.0 mmol/l (low), Cr Clearance (Est) - 182.38 ml/min (high), Glucose - 155 mg/dl (high), Calcium - 8.4 mg/dl (low) and Protein, Total - 6.1 g/dl (low). Imaging: Radiation therapy imaging related to accurate target localization (i.e. KV, MV and CBCT) was reviewed. Appropriate changes, if any, were made to ensure treatment accuracy. Plan: The patient is tolerating therapy reasonably well. Radiotherapy will continue as planned. CPT: 13856 Signed by: Dr. Brennan Jordan 07/19/2020 5:32:28 PM
--- NOTE | 2020-07-24 23:08 | ONC FU_ITS ---
[facility] Patient Note Patient: Gavino Ingram Unit #: [id number]: 1960 Dictated By: Alfredo BritoDate of Visit: Jul 21, 2020 Onc MED Follow-Up/Prog Note Chief Complaint: Pancreatic cancer. History of Present Illness: Mr Ingram is a 60 year-old man with adenocarcinoma of the pancreas, pathologic stage IIB (pT2, pN1, M0). On 11/02/2019 he presented to the emergency room with jaundice. His total bilirubin at that time was 13.4 mg/dL. The liver enzymes were moderately elevated with alkaline phosphatase 257/130 IU/L, SGOT 98/40 U/L and SGPT 105/41 U/L. Abdominal CT scan showed significantly dilated biliary tree and common hepatic duct with a transition point at the common hepatic-common bile duct junction. The findings were suspicious for underlying stricture or occult mass. There were several mildly enlarged portacaval lymph nodes measuring up to 2 cm. He was transferred to [facility] for admission. On 11/03/2019 he underwent ERCP with placement of biliary stent. He was noted to have a malignant appearing stricture in the mid common bile duct, suspicious for pancreatic neoplasm. On 12/01/2019 he underwent repeat ERCP with placement of partially covered metal stent, and he underwent endoscopic ultrasound with FNA biopsy of a 3.5 x 2.7 cm mass lesion involving the head of the pancreas. The mass was noted to be in close proximity to the vessels but without overt infiltration. There was no celiac axis adenopathy appreciated. Cytology on the FNA biopsy was positive for adenocarcinoma. Staging CT scans of the chest, abdomen, and pelvis on 12/09/2019 showed multiple small bilateral noncalcified pulmonary nodules ranging in size from 2 to 4 mm. There was no evidence of metastatic involvement in the liver. A rounded focus surrounding the pancreatic head measuring 2.9 x 3.6 cm, including adjacent inflammatory changes, was noted to partially obscure a 3 x 1.7 cm pancreatic head mass which had been noted on the preoperative study. Also noted was a necrotic appearing mass/lymph node within the pancreatic head measuring 1.9 cm. A mildly prominent gastrohepatic lymph node measured 1.5 cm. There was no mesenteric adenopathy noted. He was seen by Dr. Davidson for surgical consultation, and then underwent placement of Port-A-Cath venous access device in preparation for neoadjuvant chemotherapy. Dr Solano had seen him initially on 12/16/2019. As he was generally in good health and had excellent performance status, it was recommended that he pursue a trial of neoadjuvant chemotherapy with FOLFIRINOX. He completed 6 cycles of treatment between December and March 2020. Toxicities included fatigue, neutropenia, and neuropathy. His cycle 3 had to be delayed by 2 weeks, and at that point he also required a dose reduction. Overall, though, he tolerated the treatment well. He did show a significant decline in his CA-19-9 level, from 339.2 U/mL to 124.4 U/mL. On 04/26/2020 he underwent exploratory laparotomy with pancreaticoduodenectomy, portal (abdominal) lymph node dissection, feeding jejunostomy, omental pedicle flap, and cholecystectomy. On visual inspection, the gallbladder appeared acutely inflamed. There also appeared to be a lot of inflammation in the pancreas, and there were 2 large cyst on his pancreas, consistent with probable pancreatitis. There is a significant desmoplastic reaction in the peritoneum. There was no gross evidence of metastatic disease. Pathology showed well-differentiated ductal adenocarcinoma measuring 3.3 cm in greatest dimension. The bile duct margin, proximal margin, and distal margin were uninvolved, but the pancreatic neck/parenchymal margin and the uncinated/retroperitoneal margin were both involved by invasive carcinoma. There was also involvement in 3 of 17 lymph nodes. Pathologic staging was pT2, pN1. His gallbladder, incidentally, showed marked chronic cholecystitis. He underwent successful pancreaticoduodenectomy on 04/26/2020. He recovered well from the procedure. Due to the involved surgical margins and the lymph node involvement, he was advised to undergo postoperative radiation concurrently with Xeloda for chemosensitization. Mr Ingram began his postoperative treatment on 06/27/2020. Mr Ingram is here today for followup for his Xeloda portion of his concurrent treatment. He presented for his follow-up on July 06, 2020 with significant/ dramatic fatigue . His dose of Xeloda was reduced at that time. He is here today for follow-up. Last week we increased his Xeloda to 2 in the morning and 1 at night. He states he began feeling washed out taking it 2 at night and 1 in the morning. He states that early in the week he can get a few things done. He states however by Saturday and Saturday he is just washed out. He does recover by Saturday morning and states this time start all over again. He states he feels back to being normal. He denies any nausea or vomiting. He denies any fever or chills. He has had no symptoms of infection for at least the last 72 hours. He states his breathing is good. His appetite is good. He denies diarrhea or constipation. He denies any neuropathy or skin changes. He states he is ready to get back to work. He plans to resume work as soon as possible. 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 His ECOG is 1. Past Medical History: Allergic rhinitis History of peptic ulcer disease Hypertension Past Surgical History: ERCP with placement of metal stent and with EUS/FNA biopsy of pancreatic head mass in 2019 ERCP with biliary stent placement in 2019 Allergies: No Known Allergies. Medications: Acetaminophen 1 - 2 Tablet (of 500 mg) Oral at bedtime Claritin 1 Tablet (of 10 mg) Oral daily Famotidine 1 Tablet (of 40 mg) Oral daily Fluticasone Furoate Aerosol Powder, Breath Activated Inhalation K-Tab 1 Tablet (of 10 meq) Tablet, controlled release Oral daily LORazepam 0.5 - 1 Tablet (of 1 mg) Oral t.i.d. PRN Prochlorperazine Maleate 1 Tablet (of 10 mg) Oral PRN Family History: His maternal grandfather is : prostate cancer. Father at age 83 with complications of diabetes. Mother of stroke at age 85. She also had diabetes and she has been treated for breast cancer. A brother and a sister are in good health. Social History: Mr. Ingram is and he is an unknown. Mr. Ingram has never smoked. He is a former drinker. He had smoked a little as a teenager, but none since then. He had some heavy alcohol use in the past, but he quit drinking 40 years ago. Review Of Symptoms: Constitutional Denies fevers, chills, night sweats or weight loss. He states he feels more fatigue and washed out on the increased dose but can tolerate it for now. Allergic/Immunologic No reactions. Eyes Denies significant visual changes. No diplopia. No amaurosis. ENMT Denies changes in hearing, sore throat, mouth sores, difficulty or changes in swallowing ability. Hematologic/Lymphatic Denies easy bruising or bleeding. The patient denies any tender or palpable lymph nodes. Respiratory Denies dyspnea on exertion, chest pain, cough or hemoptysis. Denies orthopnea. He states he gets a little short of breath with alot of exertion. Cardiovascular Denies anginal chest pain, palpitations or orthopnea. Gastrointestinal Denies vomiting, diarrhea, GI bleeding, or constipation. Denies change in bowel habits and/or stool color, no heartburn or early satiety. He states he has a little nausea with the pills but it is not severe and does not require medication. Genitourinary (M) Denies hematuria, dysuria, increased frequency, urgency, hesitancy or incontinence. Musculoskeletal Denies joint pain, swelling or redness. No decreased range of motion. Integumentary Denies chronic rashes, inflammation, ulcerations or skin changes. Neurologic Denies headache, blurred vision, and no areas of focal weakness or numbness. Normal gait. No sensory problems. Psychiatric Denies insomnia, depression, tiffani or mood swings. Vital Signs: Performed on Jul 21, 2020 08:35 Height - 71.00 in Weight - 256.0 lbs (LOW) BSA - 2.34 sq.m BMI - 35.70 (HIGH) Temperature - 98.4 F Pulse - 78 /min Respiration - 20 /min BP - 150/104 mm(hg) (HIGH) O2 Sat - 99 % Pain - 0,1 - No physically strenuous activity, but ambulatory and able to carry out light or sedentary work (e.g. office work, light house work). (ECOG) Physical Examination: Constitutional Alert, oriented, no acute distress. Skin pink, warm and dry. Head Normocephalic; atraumatic. Eyes Conjunctivae and sclerae are clear and without icterus. Pupils are reactive and equal. Wears corrective lens (glasses) Neck Supple without masses or thyromegaly. No jugular venous distension. Hematologic/Lymphatic No petechiae or purpura. No tender or palpable lymph nodes in the cervical or supraclavicular areas. Respiratory Lungs are clear to auscultation without rhonchi or wheezing. Cardiovascular Regular rate and rhythm of heart without murmurs,clicks, gallops or rubs. Back/Spine Non-tender to palpation. Extremities No visible deformities, no cyanosis, clubbing or edema. Musculoskeletal No tenderness or swelling, normal range of motion without obvious weakness. Integumentary No rashes or lesions. No evidence of hand-foot syndrome. Neurologic No sensory or motor deficits, normal cerebellar function, normal gait. Psychiatric Alert and oriented times three. Coherent speech. Verbalizes understanding of our discussions today. Laboratory:Test performed on Jul 13, 2020 13:02 Sodium 138 mmol/L Potassium 3.0 mmol/L Chloride 105 mmol/L CO2 24 mmol/L Anion Gap 12.0 BUN 8 mg/dL Creatinine 0.7 mg/dL Cr Clearance (Est) 182.38 mL/min eGFR 114.3 mL/min Glucose 155 mg/dL Osmolality - Calculated 287 mOsm/kg Calcium 8.4 mg/dL Protein, Total 6.1 g/dL Albumin 3.7 g/dL Globulin 2.4 g/dL Bilirubin, Total 0.3 mg/dL ALT (SGPT) 22 U/L AST (SGOT) 25 U/L Alkaline Phosphatase 76 IU/L WBC 4.4 10 3/uL RBC 4.15 10 6/uL HGB 13.1 g/dL HCT 39.4 % MCV 94.9 fL MCH 31.6 pg MCHC 33.2 g/dL RDW 13.6 % Platelet Count 190 10 3/cmm MPV 10.1 fL Neutrophils 3.27 10 3/uL Lymphocytes 0.4 10 3/uL Monocytes 0.4 10 3/uL Eosinophils 0.3 10 3/uL Basophils 0.0 10 3/uL Neutrophil % 73.8 % Lymphocyte % 9.5 % Monocyte % 9.7 % Eosinophil % 6.3 % Basophils % 0.5 % NRBC % 0 % Test performed on Jul 06, 2020 12:30 TSH 1.62 uIU/mL Test performed on Apr 20, 2020 12:19 CA 19-9 124.4 U/mL Test performed on Mar 09, 2020 09:14 Magnesium 2.1 mg/dL Impression: 1. Patient with well differentiated adenocarcinoma of the head of the pancreas, pathologic stage IIB (pT2, pN1, M0). 2. He underwent ERCP with placement of biliary stent on 11/03/2019, and on 12/01/2019 he underwent repeat ERCP with placement of partially covered metal stent and endoscopic ultrasound with FNA biopsy of pancreatic head mass. 3. From December through March 2020 he completed 6 cycles of neoadjuvant FOLFIRINOX chemotherapy. He required a dose reduction for neutropenia and neuropathy, but overall he tolerated the treatment well. 4. On 04/26/2020 he underwent exploratory laparotomy with pancreaticoduodenectomy, portal (abdominal) lymph node dissection, feeding jejunostomy, omental pedicle flap, and cholecystectomy. Pathology showed well-differentiated ductal adenocarcinoma measuring 3.3 cm in greatest dimension. There was involvement in 3/17 lymph nodes. In addition, the pancreatic neck/parenchymal and the uncinated/retroperitoneal margins were involved by invasive carcinoma. 5. His initial CT scans showed multiple small noncalcified pulmonary nodules bilaterally, ranging in size from 2 to 4 mm. These were nonspecific, but early metastatic disease was not excluded. These appeared stable on his 03/16/[address] scans. 6. He has a positive family history of breast cancer affecting his mother. His other medical illnesses include: 7. Hypertension. 8. Allergic rhinitis. 9. GERD and history of peptic ulcer disease. He underwent successful pancreaticoduodenectomy on 04/26/2020. He recovered well from the procedure. Due to the involved surgical margins and the lymph node involvement, he was advised to undergo postoperative radiation concurrently with Xeloda for chemosensitization. Mr Ingram began his postoperative treatment on 06/27/2020. Plan: 1. We will continue his Xeloda 500 mg to 2 tablets in the am and 1 tablet in the pm Saturday -Saturday. (His prescription is for 2000 mg BID on the days of radiation only. Mr Ingram states he was taking 1 tablet twice daily when the fatigue was so severe). 2. Continue antiemetics as needed at home. He states he is only had to take them a couple of times. 3. He did not have labs drawn this week. 4. We will plan to see him back in 1 week with repeat CBC CMP and reevaluate his fatigue at that time. 5. Mr. Ingram was instructed to contact us in the interim if questions or problems arise. Signed By: Alfredo Brito-, [facility] Royal Solano MD <<Signature on File>>
--- NOTE | 2020-07-26 14:38 | ONCRAD TMN_ITS ---
Radiation Oncology Weekly Treatment Management Patient: Juan Jose Mancia MR#: [id number] : 1960 Age: 60 Sex: Male Dictated by: Dr. Brennan Jordan Date of Service: 07/26/2020 Referring Physician(s) : Dr. Hipolito Yeh Diagnosis: pT2 pN1 M0 adenocarcinoma of the pancreatic head s/p 6 cycles of FOLFIRINOX (03/2020), followed by surgical resection (04/2020). Pathology revealed positive pancreatic neck/parenchymal margins, a positive uncinate/retroperitoneal margin, and 3 of 17 involved lymph nodes. Planned Treatment: Adjuvant concurrent chemoradiation therapy consisting of Xeloda and a total dose of 50.4 Gy in 1.8 Gy fractions. Radiotherapy to date: Course: Pancreas 2019, Treatment Site: Pancreas 28FX, Ref. ID: [id number], Energy: 15X/6X, Dose/Fx (cGy): 180, #Fx: , Dose Correction (cGy): 0, Total Dose (cGy): 3,960, Start Date: 06/27/2020, Elapsed Days: Reason for visit: The patient is being seen today as part of their regularly scheduled weekly on treatment visits to assess for acute toxicities from radiotherapy. Interim History: The patient reports mild fatigue, but no nausea/vomiting, abdominal pain or other complaints. Current Medications: Acetaminophen, claritin, famotidine, fluticasone Furoate, k-Tab, k-Tab, lORazepam, prochlorperazine Maleate, prochlorperazine Maleate. Allergies: No Known Allergies Current Complaints/Review of Systems: Constitutional - Complains of mild fatigue. Complains of change in weight down 3.2 lbs. since last OTV. Denies lack of appetite, fever and night sweats. Gastrointestinal - Complains of heartburn / dyspepsia occasionally and satiety. Denies abdominal pain, constipation, diarrhea, melena / GI bleeding, nausea and vomiting. Vital Signs: Performed on 07/26/2020 1:55 PM BMI - 35.259 kg/m2 (high), Height - 71.00 in, Weight - 252.8 lbs, Temperature - 97.5 f, Pulse - 94, Respiration - 20, O2 Sat - 97 %, Pain - 0 and BP - 135/ 102 mm(hg)(/high). Physical Exam: Appears stable, no skin erythema or desquamation. Lungs are clear to auscultation bilaterally. Performance Status: 1 - No physically strenuous activity, but ambulatory and able to carry out light or sedentary work (e.g. office work, light house work). (ECOG) Lab: None pending in Radiation Oncology. Imaging: Radiation therapy imaging related to accurate target localization (i.e. KV, MV and CBCT) was reviewed. Appropriate changes, if any, were made to ensure treatment accuracy. Plan: The patient is tolerating therapy reasonably well. Radiotherapy will continue as planned. CPT: 12907 Signed by: Dr. Brennan Jordan 07/26/2020 2:36:07 PM
[2020-07-27 13:41] LABS: Basophils % 0.2 %; Eosinophils # 0.3 10^3/uL (0.0-0.8); Eosinophils % 5.2 %; Hematocrit 42.8 % (42.0-52.0); Hemoglobin 14.1 g/dL (11.7-16.6); Lymphocytes # 0.3 10^3/uL (0.8-4.8); Lymphocytes % 4.7 %; Mean Corpuscular HGB Conc 32.9 g/dL (30.0-36.0); Mean Corpuscular Hemoglobin 31.5 pg (28.0-34.0); Mean Corpuscular Volume 95.7 fL (80-94); Mean Platelet Volume 9.9 fL (7.4-10.4); Monocytes # 0.6 10^3/uL (0.2-0.9); Monocytes % 9.6 %; Neutrophils # 4.88 10^3/uL (1.8-7.7); Neutrophils % 79.8 %; Nucleated Red Blood Cells % 0 %; Platelet Count 198 10^3/cmm (130-400); Red Blood Count 4.47 10^6/uL (4.1-5.3); Red Cell Distribution Width 14.2 % (12.1-15.1); White Blood Count 6.1 10^3/uL (4.0-10.0)
[2020-07-27 13:58] LABS: Alanine Aminotransferase 21 U/L (0-41); Albumin Level 3.7 g/dL (3.5-5.2); Alkaline Phosphatase 87 IU/L (40-130); Anion Gap 11.8 (5-19); Aspartate Amino Transferase 23 U/L (0-40); Blood Urea Nitrogen 7 mg/dL (8-23); Calcium 8.4 mg/dL (8.5-10.5); Carbon Dioxide 25 mmol/L (22-29); Chloride 104 mmol/L (98-107); Globulin 2.4 g/dL (1.3-4.6); Glomerular Filtration Rate 114.3 mL/min (90-130); Glucose 123 mg/dL (65-115); Osmolality Calculated 283 mOsm/kg (285-295); Potassium 3.8 mmol/L (3.5-5.1); Sodium 137 mmol/L (136-145); Total Bilirubin 0.3 mg/dL (0.15-1.2); Total Protein 6.1 g/dL (6.6-8.7)
[2020-08-02 13:16] LABS: Basophils % 0.5 %; Eosinophils # 0.3 10^3/uL (0.0-0.8); Eosinophils % 6.2 %; Hematocrit 42.6 % (42.0-52.0); Hemoglobin 14.1 g/dL (11.7-16.6); Lymphocytes # 0.3 10^3/uL (0.8-4.8); Lymphocytes % 6.9 %; Mean Corpuscular HGB Conc 33.1 g/dL (30.0-36.0); Mean Corpuscular Hemoglobin 31.3 pg (28.0-34.0); Mean Corpuscular Volume 94.7 fL (80-94); Mean Platelet Volume 9.3 fL (7.4-10.4); Monocytes # 0.7 10^3/uL (0.2-0.9); Neutrophils # 3.09 10^3/uL (1.8-7.7); Neutrophils % 71.2 %; Nucleated Red Blood Cells % 0 %; Platelet Count 184 10^3/cmm (130-400); Red Cell Distribution Width 14.4 % (12.1-15.1); White Blood Count 4.3 10^3/uL (4.0-10.0)
[2020-08-02 13:51] LABS: Alanine Aminotransferase 22 U/L (0-41); Albumin Level 3.6 g/dL (3.5-5.2); Alkaline Phosphatase 92 IU/L (40-130); Anion Gap 10.9 (5-19); Aspartate Amino Transferase 27 U/L (0-40); Blood Urea Nitrogen 9 mg/dL (8-23); Calcium 8.6 mg/dL (8.5-10.5); Carbon Dioxide 26 mmol/L (22-29); Chloride 103 mmol/L (98-107); Globulin 2.5 g/dL (1.3-4.6); Glomerular Filtration Rate 114.3 mL/min (90-130); Glucose 110 mg/dL (65-115); Osmolality Calculated 281 mOsm/kg (285-295); Potassium 3.9 mmol/L (3.5-5.1); Sodium 136 mmol/L (136-145); Total Bilirubin 0.3 mg/dL (0.15-1.2); Total Protein 6.1 g/dL (6.6-8.7)
--- NOTE | 2020-08-03 19:30 | ONCRAD TMN_ITS ---
Radiation Oncology Weekly Treatment Management Patient: Gavino Ingram MR#: [id number] : 1960 Age: 60 Sex: Male Dictated by: Dr. Brennan Jordan Date of Service: 08/02/2020 Referring Physician(s) : Dr. Hipolito Yeh Diagnosis: pT2 pN1 M0 adenocarcinoma of the pancreatic head s/p 6 cycles of FOLFIRINOX (03/2020), followed by surgical resection (04/2020). Pathology revealed positive pancreatic neck/parenchymal margins, a positive uncinate/retroperitoneal margin, and 3 of 17 involved lymph nodes. Planned Treatment: Adjuvant concurrent chemoradiation therapy consisting of Xeloda and a total dose of 50.4 Gy in 1.8 Gy fractions. Radiotherapy to date: Course: Pancreas 2019, Treatment Site: Pancreas 28FX, Ref. ID: [id number], Energy: 15X/6X, Dose/Fx (cGy): 180, #Fx: , Dose Correction (cGy): 0, Total Dose (cGy): 4,860, Start Date: 06/27/2020, Elapsed Days: 36 Reason for visit: The patient is being seen today as part of their regularly scheduled weekly on treatment visits to assess for acute toxicities from radiotherapy. Interim History: The patient reports mild fatigue and episodic abdominal pain in the lower abdomen. Overall he reports tolerating therapy well and he is without nausea/vomiting. Current Medications: Acetaminophen, claritin, famotidine, fluticasone Furoate, k-Tab, k-Tab, lORazepam, prochlorperazine Maleate, prochlorperazine Maleate. Allergies: No Known Allergies Current Complaints/Review of Systems: Constitutional - Complains of mild fatigue. Denies lack of appetite, fever, night sweats and change in weight. Gastrointestinal - Complains of abdominal pain that is intermittent located in the lower abdomen. Complains of satiety. Denies constipation, diarrhea, heartburn / dyspepsia, melena / GI bleeding, nausea and vomiting. Vital Signs: Performed on 08/02/2020 1:52 PM BMI - 35.231 kg/m2 (high), Height - 71.00 in, Weight - 252.6 lbs, Temperature - 98.9 f, Pulse - 78, Respiration - 20, O2 Sat - 99 %, Pain - 0 and BP - 128/ 90 mm(hg). Physical Exam: Appears stable, no skin erythema or desquamation. Performance Status: 1 - No physically strenuous activity, but ambulatory and able to carry out light or sedentary work (e.g. office work, light house work). (ECOG) Lab: None pending in Radiation Oncology. Test performed on 04/20/2020 12:19 PM CA 19-9 - 124.4 u/ml (high), Test performed on 07/13/2020 1:02 PM HCT - 39.4 % (low), MCV - 94.9 fl (high), Lymphocytes - 0.4 10 3/ul (low), Potassium - 3.0 mmol/l (low), Cr Clearance (Est) - 182.38 ml/min (high), Glucose - 155 mg/dl (high), Calcium - 8.4 mg/dl (low) and Protein, Total - 6.1 g/dl (low). Imaging: Radiation therapy imaging related to accurate target localization (i.e. KV, MV and CBCT) was reviewed. Appropriate changes, if any, were made to ensure treatment accuracy. Plan: The patient is tolerating therapy reasonably well. Radiotherapy will continue as planned. CPT: 90865 Signed by: Dr. Brennan Jordan 08/03/2020 7:29:22 PM
--- NOTE | 2020-08-06 15:40 | ONC FU_ITS ---
Dr. Solano Patient Follow-Up Note Patient: Gavino Ingram Unit #: [id number]: 1960 Dicatated By: Royal Solano M.D.Date of Visit:Aug 03, 2020 Onc Med Follow-up/Prog Note Chief Complaint: Pancreatic cancer. History of Present Illness: This is a 59 year-old man with adenocarcinoma of the pancreas, pathologic stage IIB (pT2, pN1, M0). On 11/02/2019 he presented to the emergency room with jaundice. His total bilirubin at that time was 13.4 mg/dL. The liver enzymes were moderately elevated with alkaline phosphatase 257/130 IU/L, SGOT 98/40 U/L and SGPT 105/41 U/L. Abdominal CT scan showed significantly dilated biliary tree and common hepatic duct with a transition point at the common hepatic-common bile duct junction. The findings were suspicious for underlying stricture or occult mass. There were several mildly enlarged portacaval lymph nodes measuring up to 2 cm. He was transferred to [facility] for admission. On 11/03/2019 he underwent ERCP with placement of biliary stent. He was noted to have a malignant appearing stricture in the mid common bile duct, suspicious for pancreatic neoplasm. On 12/01/2019 he underwent repeat ERCP with placement of partially covered metal stent, and he underwent endoscopic ultrasound with FNA biopsy of a 3.5 x 2.7 cm mass lesion involving the head of the pancreas. The mass was noted to be in close proximity to the vessels but without overt infiltration. There was no celiac axis adenopathy appreciated. Cytology on the FNA biopsy was positive for adenocarcinoma. Staging CT scans of the chest, abdomen, and pelvis on 12/09/2019 showed multiple small bilateral noncalcified pulmonary nodules ranging in size from 2 to 4 mm. There was no evidence of metastatic involvement in the liver. A rounded focus surrounding the pancreatic head measuring 2.9 x 3.6 cm, including adjacent inflammatory changes, was noted to partially obscure a 3 x 1.7 cm pancreatic head mass which had been noted on the preoperative study. Also noted was a necrotic appearing mass/lymph node within the pancreatic head measuring 1.9 cm. A mildly prominent gastrohepatic lymph node measured 1.5 cm. There was no mesenteric adenopathy noted. He was seen by Dr. Davidson for surgical consultation, and then underwent placement of Port-A-Cath venous access device in preparation for neoadjuvant chemotherapy. I had seen him initially on 12/16/2019. As he was generally in good health and had excellent performance status, I had recommended a trial of neoadjuvant chemotherapy with FOLFIRINOX. He completed 6 cycles of treatment between December and March 2020. Toxicities included fatigue, neutropenia, and neuropathy. His cycle 3 had to be delayed by 2 weeks, and at that point he also required a dose reduction. Overall, though, he tolerated the treatment well. He did show a significant decline in his CA-19-9 level, from 339.2 U/mL to 124.4 U/mL. On 04/26/2020 he underwent exploratory laparotomy with pancreaticoduodenectomy, portal (abdominal) lymph node dissection, feeding jejunostomy, omental pedicle flap, and cholecystectomy. On visual inspection, the gallbladder appeared acutely inflamed. There also appeared to be a lot of inflammation in the pancreas, and there were 2 large cyst on his pancreas, consistent with probable pancreatitis. There is a significant desmoplastic reaction in the peritoneum. There was no gross evidence of metastatic disease. Pathology showed well-differentiated ductal adenocarcinoma measuring 3.3 cm in greatest dimension. The bile duct margin, proximal margin, and distal margin were uninvolved, but the pancreatic neck/parenchymal margin and the uncinated/retroperitoneal margin were both involved by invasive carcinoma. There was also involvement in 3 of 17 lymph nodes. Pathologic staging was pT2, pN1. His gallbladder, incidentally, showed marked chronic cholecystitis. Due to the involved surgical margins and the lymph node involvement, he was recommended to undergo postoperative radiation concurrently with Xeloda. He began radiation concurrently with Xeloda on 06/27/2020. He completed treatment on 08/03/2020 to a total dose of 5040 cGy. He is seen for a followup visit. He has been feeling all right, but he is wore out. He is able to do light work. ECOG score is 1. His appetite is good, but he has lost a little weight. He does not have fever or night sweats. He has had no mouth sores. He has no shortness of breath, cough, or chest pain. He does not complain of nausea, but his stomach does feel queasy. Bowel and bladder function have been okay. He has had no diarrhea. He does have some generalized aching. He does not complain of headache or dizziness. His fingertips are still sometimes a little numb. He has no other residual neuropathy. Medications: Acetaminophen 1 - 2 Tablet (of 500 mg) Oral at bedtime, Claritin 1 Tablet (of 10 mg) Oral daily, Famotidine 1 Tablet (of 40 mg) Oral daily, Fluticasone Furoate Aerosol Powder, Breath Activated Inhalation, K-Tab 1 Tablet (of 10 meq) Tablet, controlled release Oral daily, LORazepam 0.5 - 1 Tablet (of 1 mg) Oral t.i.d. PRN, Prochlorperazine Maleate 1 Tablet (of 10 mg) Oral PRN Allergies: No Known Allergies. Review of Systems: Constitutional - He feels wore out. Appetite is good but he has lost a little weight.e. No fever, night sweats, or hot flashes. ECOG score is 1, ENMT - No sinus congestion/drainage. No mouth sores. No sore throat or difficulty swallowing, Hematologic/Lymphatic - No abnormal bruising or bleeding, Respiratory - No shortness of breath. No cough. No pleuritic pain or hemoptysis, Cardiovascular - No angina pain. No palpitations, Gastrointestinal - He is not having nausea, but he does feel queasy. No heartburn or acid reflux. No diarrhea or constipation. No blood in the stool or black stools, Genitourinary (M) - No dysuria or hematuria. No urinary frequency. No urgency or incontinence, Musculoskeletal - He has some generalized aching, Integumentary - No skin rash, Neurologic - No headache or dizziness. He still has numbness/tingling in his fingertips. No other focal neurologic symptoms, Psychiatric - No anxiety or depression. No insomnia. Vital Signs: Performed on Aug 03, 2020 11:57 Height - 71.00 in Weight - 252.2 lbs (LOW) BSA - 2.33 sq.m BMI - 35.17 (HIGH) Temperature - 98.2 F (LOW) Pulse - 81 /min Respiration - 18 /min BP - 144/89 mm(hg) (HIGH) O2 Sat - 98 % Pain - 1 Physical Examination: Constitutional - He looks pretty good generally, Eyes - Sclerae nonicteric. Conjunctivae clear, ENMT - No lesions noted in the oral cavity, Hematologic/Lymphatic - No cervical, clavicular, or axillary adenopathy, Respiratory - Lungs are clear with good air movement bilaterally, Cardiovascular - Heart rhythm is regular. There is no murmur, gallop, or rub noted, Abdomen - Soft. Liver and spleen are not enlarged. There is no abdominal mass or ascites noted and there is no inguinal adenopathy, Extremities - Slight edema, Neurologic - No focal neurologic deficits noted. Lab/Imaging: Test performed on Aug 02, 2020 13:03 Sodium 136 mmol/L Potassium 3.9 mmol/L Chloride 103 mmol/L CO2 26 mmol/L Anion Gap 10.9 BUN 9 mg/dL Creatinine 0.7 mg/dL Cr Clearance (Est) 177.04 mL/min eGFR 114.3 mL/min Glucose 110 mg/dL Osmolality - Calculated 281 mOsm/kg Calcium 8.6 mg/dL Protein, Total 6.1 g/dL Albumin 3.6 g/dL Globulin 2.5 g/dL Bilirubin, Total 0.3 mg/dL ALT (SGPT) 22 U/L AST (SGOT) 27 U/L Alkaline Phosphatase 92 IU/L WBC 4.3 10 3/uL RBC 4.50 10 6/uL HGB 14.1 g/dL HCT 42.6 % MCV 94.7 fL MCH 31.3 pg MCHC 33.1 g/dL RDW 14.4 % Platelet Count 184 10 3/cmm MPV 9.3 fL Neutrophils 3.09 10 3/uL Lymphocytes 0.3 10 3/uL Monocytes 0.7 10 3/uL Eosinophils 0.3 10 3/uL Basophils 0.0 10 3/uL Neutrophil % 71.2 % Lymphocyte % 6.9 % Monocyte % 15.0 % Eosinophil % 6.2 % Basophils % 0.5 % NRBC % 0 % CA 19-9 26.50 U/mL Impression: 1. Patient with well differentiated adenocarcinoma of the head of the pancreas, pathologic stage IIB (pT2, pN1, M0). 2. He underwent ERCP with placement of biliary stent on 11/03/2019, and on 12/01/2019 he underwent repeat ERCP with placement of partially covered metal stent and endoscopic ultrasound with FNA biopsy of pancreatic head mass. 3. From December through March 2020 he completed 6 cycles of neoadjuvant FOLFIRINOX chemotherapy. He required a dose reduction for neutropenia and neuropathy, but overall he tolerated the treatment well. 4. On 04/26/2020 he underwent exploratory laparotomy with pancreaticoduodenectomy, portal (abdominal) lymph node dissection, feeding jejunostomy, omental pedicle flap, and cholecystectomy. Pathology showed well-differentiated ductal adenocarcinoma measuring 3.3 cm in greatest dimension. There was involvement in 3/17 lymph nodes. In addition, the pancreatic neck/parenchymal and the uncinated/retroperitoneal margins were involved by invasive carcinoma. 5. His initial CT scans showed multiple small noncalcified pulmonary nodules bilaterally, ranging in size from 2 to 4 mm. These were nonspecific, but early metastatic disease was not excluded. These appeared stable on his 03/16/[address] scans. 6. He has a positive family history of breast cancer affecting his mother. His other medical illnesses include: 7. Hypertension. 8. Allergic rhinitis. 9. GERD and history of peptic ulcer disease. Due to the involved surgical margins and the lymph node involvement, he was recommended to undergo postoperative radiation concurrently with Xeloda for chemosensitization. He began radiation on 06/27/2020. He completed treatment on 08/03/2020 to a total dose of 5040 cGy. At this point he is still significantly fatigued, but overall he has tolerated his treatment very well. Plan: He has now completed treatment for the pancreatic cancer. He is at risk of recurrence, but at this point he is considered cancer free. He is scheduled to have follow-up and surveillance CT scans with Dr. Davidson. I will plan to see him here again in 3 months. Signed By: Royal Solano M.D. <<Signature on File>>
== END 2020-08-06 23:59 | disposition home or self-care (01) ==
LOC: ONCMED 05:30
PROVIDERS: Nurse Practitioner; Absent Provider Radiology Radiation Oncology; PCP Nurse Practitioner; Visit Provider Internal Medicine Medical Oncology
DX: Z51.0 Encounter for antineoplastic radiation therapy (principal); C25.0 Malignant neoplasm of head of pancreas; C77.2 Secondary and unspecified malignant neoplasm of intra-abdominal lymph nodes; T82.9XXA Unspecified complication of cardiac and vascular prosthetic device, implant and graft, initial encounter; Y82.9 Unspecified medical devices associated with adverse incidents; Z79.899 Other long term (current) drug therapy; Z90.411 Acquired partial absence of pancreas; Z87.11 Personal history of peptic ulcer disease; I10 Essential (primary) hypertension; K21.9 Gastro-esophageal reflux disease without esophagitis; K81.1 Chronic cholecystitis; Z93.1 Gastrostomy status; R91.8 Other nonspecific abnormal finding of lung field
CPT/HCPCS: 36415; 36591; 36593; 77336; 77386; 80053; 85025; 86301; 96374; 99214; J2997

== ENCOUNTER 2020-08-31 06:08 | Outpatient (CLI) | payer BC, SELFPAY | END 2020-08-31 06:09 | disposition home or self-care (01) | LOC: ONCMED 06:10 | PROVIDERS: Absent Provider Radiology Radiation Oncology; PCP Nurse Practitioner; Visit Provider Internal Medicine Medical Oncology | DX: Z45.2 Encounter for adjustment and management of vascular access device (principal) | CPT/HCPCS: 96523 ==

== ENCOUNTER 2020-10-04 11:18 | Outpatient (CLI) | payer BC, SELFPAY | END 2020-10-04 11:19 | disposition home or self-care (01) | LOC: ONCMED 11:19 | PROVIDERS: PCP Nurse Practitioner; Visit Provider Internal Medicine Medical Oncology | DX: Z45.2 Encounter for adjustment and management of vascular access device (principal) | CPT/HCPCS: 96523 ==

== ENCOUNTER 2020-11-02 11:01 | Outpatient (CLI) | payer OTHER, SELFPAY ==
[2020-11-02 12:10] LABS: Basophils % 0.5 %; Eosinophils # 0.1 10^3/uL (0.0-0.8); Eosinophils % 3.5 %; Hematocrit 37.7 % (42.0-52.0); Hemoglobin 12.8 g/dL (11.7-16.6); Lymphocytes # 0.5 10^3/uL (0.8-4.8); Lymphocytes % 11.7 %; Mean Corpuscular Hemoglobin 32.9 pg (28.0-34.0); Mean Corpuscular Volume 96.9 fL (80-94); Mean Platelet Volume 10.3 fL (7.4-10.4); Monocytes # 0.5 10^3/uL (0.2-0.9); Monocytes % 11.7 %; Neutrophils # 2.93 10^3/uL (1.8-7.7); Neutrophils % 72.6 %; Nucleated Red Blood Cells % 0 %; Platelet Count 199 10^3/cmm (130-400); Red Blood Count 3.89 10^6/uL (4.1-5.3); Red Cell Distribution Width 11.8 % (12.1-15.1)
[2020-11-02 13:02] LABS: Alanine Aminotransferase 20 U/L (0-41); Albumin Level 3.6 g/dL (3.5-5.2); Alkaline Phosphatase 121 IU/L (40-130); Anion Gap 12.3 (5-19); Aspartate Amino Transferase 23 U/L (0-40); Blood Urea Nitrogen 9 mg/dL (8-23); Calcium 8.7 mg/dL (8.5-10.5); Carbon Dioxide 26 mmol/L (22-29); Chloride 106 mmol/L (98-107); Globulin 2.6 g/dL (1.3-4.6); Glomerular Filtration Rate 114.3 mL/min (90-130); Glucose 108 mg/dL (65-115); Osmolality Calculated 291 mOsm/kg (285-295); Potassium 3.3 mmol/L (3.5-5.1); Sodium 141 mmol/L (136-145); Total Bilirubin 0.3 mg/dL (0.15-1.2); Total Protein 6.2 g/dL (6.6-8.7)
--- NOTE | 2020-11-02 18:28 | ONC FU_ITS ---
Dr. Solano Patient Follow-Up Note Patient: Gavino Ingram Unit #: [id number]: [id number] Dicatated By: Royal Solano M.D.Date of Visit:Nov 02, 2020 Onc Med Follow-up/Prog Note Chief Complaint: Pancreatic cancer. History of Present Illness: This is a 60 year-old man with adenocarcinoma of the pancreas, pathologic stage IIB (pT2, pN1, M0). On 11/02/2019 he presented to the emergency room with jaundice. His total bilirubin at that time was 13.4 mg/dL. The liver enzymes were moderately elevated with alkaline phosphatase 257/130 IU/L, SGOT 98/40 U/L and SGPT 105/41 U/L. Abdominal CT scan showed significantly dilated biliary tree and common hepatic duct with a transition point at the common hepatic-common bile duct junction. The findings were suspicious for underlying stricture or occult mass. There were several mildly enlarged portacaval lymph nodes measuring up to 2 cm. He was transferred to [facility] for admission. On 11/03/2019 he underwent ERCP with placement of biliary stent. He was noted to have a malignant appearing stricture in the mid common bile duct, suspicious for pancreatic neoplasm. On 12/01/2019 he underwent repeat ERCP with placement of partially covered metal stent, and he underwent endoscopic ultrasound with FNA biopsy of a 3.5 x 2.7 cm mass lesion involving the head of the pancreas. The mass was noted to be in close proximity to the vessels but without overt infiltration. There was no celiac axis adenopathy appreciated. Cytology on the FNA biopsy was positive for adenocarcinoma. Staging CT scans of the chest, abdomen, and pelvis on 12/09/2019 showed multiple small bilateral noncalcified pulmonary nodules ranging in size from 2 to 4 mm. There was no evidence of metastatic involvement in the liver. A rounded focus surrounding the pancreatic head measuring 2.9 x 3.6 cm, including adjacent inflammatory changes, was noted to partially obscure a 3 x 1.7 cm pancreatic head mass which had been noted on the preoperative study. Also noted was a necrotic appearing mass/lymph node within the pancreatic head measuring 1.9 cm. A mildly prominent gastrohepatic lymph node measured 1.5 cm. There was no mesenteric adenopathy noted. He was seen by Dr. Davidson for surgical consultation, and then underwent placement of Port-A-Cath venous access device in preparation for neoadjuvant chemotherapy. I had seen him initially on 12/16/2019. As he was generally in good health and had excellent performance status, I had recommended a trial of neoadjuvant chemotherapy with FOLFIRINOX. He completed 6 cycles of treatment between December and March 2020. Toxicities included fatigue, neutropenia, and neuropathy. His cycle 3 had to be delayed by 2 weeks, and at that point he also required a dose reduction. Overall, though, he tolerated the treatment well. He did show a significant decline in his CA-19-9 level, from 339.2 U/mL to 124.4 U/mL. On 04/26/2020 he underwent exploratory laparotomy with pancreaticoduodenectomy, portal (abdominal) lymph node dissection, feeding jejunostomy, omental pedicle flap, and cholecystectomy. On visual inspection, the gallbladder appeared acutely inflamed. There also appeared to be a lot of inflammation in the pancreas, and there were 2 large cyst on his pancreas, consistent with probable pancreatitis. There is a significant desmoplastic reaction in the peritoneum. There was no gross evidence of metastatic disease. Pathology showed well-differentiated ductal adenocarcinoma measuring 3.3 cm in greatest dimension. The bile duct margin, proximal margin, and distal margin were uninvolved, but the pancreatic neck/parenchymal margin and the uncinated/retroperitoneal margin were both involved by invasive carcinoma. There was also involvement in 3 of 17 lymph nodes. Pathologic staging was pT2, pN1. His gallbladder, incidentally, showed marked chronic cholecystitis. Due to the involved surgical margins and the lymph node involvement, he was recommended to undergo postoperative chemoradiation. He began radiation concurrently with Xeloda on 06/27/2020. He completed treatment on 08/03/2020 to a total dose of 5040 cGy. He was significantly fatigued following the chemoradiation, but he otherwise tolerated it well. He had a follow-up visit Dr. Davidson's office on 09/20/2020. There was no evidence of recurrence by clinical evaluation or by CT scan. He is seen for a followup visit. He has been feeling all right. He says his energy is some days good and some days not, but mostly good. He has been pretty active. ECOG score is 0. He has good appetite. His weight fluctuates up and down. He has not had fever or night sweats. He has chronic sinus drainage and he tends to have a sore throat with it. He does not complain of cough, shortness of breath, or chest pain. He has occasional nausea and occasional acid reflux. He has developed 2 hernias in the abdominal area, he sometimes has discomfort with that. For a while he was having oily stools, but that was likely diet related. He has no complaints. He does have some joint pain, that typically is worse for him during the winter months. He does not complain of headache or dizziness. He has just a little bit of residual neuropathy in his big toes. Medications: Acetaminophen 1 - 2 Tablet (of 500 mg) Oral at bedtime, Claritin 1 Tablet (of 10 mg) Oral daily, Famotidine 1 Tablet (of 40 mg) Oral daily, Fluticasone Furoate Aerosol Powder, Breath Activated Inhalation, K-Tab 1 Tablet (of 10 meq) Tablet, controlled release Oral daily, LORazepam 0.5 - 1 Tablet (of 1 mg) Oral t.i.d. PRN, Prochlorperazine Maleate 1 Tablet (of 10 mg) Oral PRN Allergies: No Known Allergies. Vital Signs: Performed on Nov 02, 2020 12:38 Height - 71.00 in Weight - 248.6 lbs (LOW) BSA - 2.31 sq.m BMI - 34.67 (HIGH) Temperature - 98.7 F Pulse - 67 /min Respiration - 18 /min BP - 150/90 mm(hg) (HIGH) O2 Sat - 95 % (LOW) Pain - 0 Physical Examination: Constitutional - He looks pretty good generally, Eyes - Sclerae nonicteric. Conjunctivae clear, ENMT - No lesions noted in the oral cavity, Hematologic/Lymphatic - No cervical, clavicular, or axillary adenopathy, Respiratory - Lungs are clear with good air movement bilaterally, Cardiovascular - Heart rhythm is regular. There is no murmur, gallop, or rub noted, Abdomen - Soft. There is mild tenderness in the mid abdomen associated with ventral hernias. Liver and spleen are not enlarged. There is no abdominal mass or ascites noted and there is no inguinal adenopathy, Extremities - No edema, Neurologic - No focal neurologic deficits noted. Lab/Imaging: Test performed on Nov 02, 2020 11:20 Sodium 141 mmol/L Potassium 3.3 mmol/L Chloride 106 mmol/L CO2 26 mmol/L Anion Gap 12.3 BUN 9 mg/dL Creatinine 0.7 mg/dL Cr Clearance (Est) 174.5200 mL/min eGFR 114.3 mL/min Glucose 108 mg/dL Osmolality - Calculated 291 mOsm/kg Calcium 8.7 mg/dL Protein, Total 6.2 g/dL Albumin 3.6 g/dL Globulin 2.6 g/dL Bilirubin, Total 0.3 mg/dL ALT (SGPT) 20 U/L AST (SGOT) 23 U/L Alkaline Phosphatase 121 IU/L WBC 4.0 10 3/uL RBC 3.89 10 6/uL HGB 12.8 g/dL HCT 37.7 % MCV 96.9 fL MCH 32.9 pg MCHC 34.0 g/dL RDW 11.8 % Platelet Count 199 10 3/cmm MPV 10.3 fL Neutrophils 2.93 10 3/uL Lymphocytes 0.5 10 3/uL Monocytes 0.5 10 3/uL Eosinophils 0.1 10 3/uL Basophils 0.0 10 3/uL Neutrophil % 72.6 % Lymphocyte % 11.7 % Monocyte % 11.7 % Eosinophil % 3.5 % Basophils % 0.5 % NRBC % 0 % CA 19-9 19.50 U/mL Problem List: 1. Well differentiated adenocarcinoma of the head of the pancreas, pathologic stage IIB (pT2, pN1, M0). 2. He underwent ERCP with placement of biliary stent on 11/03/2019, and on 12/01/2019 he underwent repeat ERCP with placement of partially covered metal stent and endoscopic ultrasound with FNA biopsy of pancreatic head mass. 3. From December through March 2020 he completed 6 cycles of neoadjuvant FOLFIRINOX chemotherapy. He required a dose reduction for neutropenia and neuropathy, but overall he tolerated the treatment well. 4. On 04/26/2020 he underwent exploratory laparotomy with pancreaticoduodenectomy, portal (abdominal) lymph node dissection, feeding jejunostomy, omental pedicle flap, and cholecystectomy. Pathology showed well-differentiated ductal adenocarcinoma measuring 3.3 cm in greatest dimension. There was involvement in 3/17 lymph nodes. In addition, the pancreatic neck/parenchymal and the uncinated/retroperitoneal margins were involved by invasive carcinoma. 5. Due to the involved surgical margins and the lymph node involvement, he was recommended to undergo postoperative radiation concurrently with Xeloda for chemosensitization. He began radiation on 06/27/2020. He completed treatment on 08/03/2020 to a total dose of 5040 cGy. 6[address] His initial CT scans showed multiple small noncalcified pulmonary nodules bilaterally, ranging in size from 2 to 4 mm. These were nonspecific, but early metastatic disease was not excluded. These appeared stable on his 03/16/[address] scans. 7. Hypertension. 8. Allergic rhinitis. 9. GERD and history of peptic ulcer disease. Problems Addressed with this Encounter and Plan: 1. Well differentiated adenocarcinoma of the head of the pancreas, pathologic stage IIB (pT2, pN1, M0). His treatment included 6 cycles of neoadjuvant FOLFIRINOX chemotherapy followed by pancreaticoduodenectomy in April 2020. Pathology showed well-differentiated ductal adenocarcinoma measuring 3.3 cm in greatest dimension. There was involvement in 3/17 lymph nodes. In addition, the pancreatic neck/parenchymal and the uncinated/retroperitoneal margins were involved by invasive carcinoma. With evidence of lymph node involvement and with a positive surgical margin he was given postoperative chemoradiation. He completed treatment on 08/03/2020 to a total radiation dose of 5040 cGy. He is now being followed on observation/expectant management. He has continued to show gradual recovery following his surgery and chemoradiation. Thus far there has been no evidence of recurrence of the pancreatic cancer. He will be seen at Dr. Davidson's office for regular follow-up at 3-month intervals. I will just plan to see him again in 6 months. 2. Hypertension. He has not required medication for it since his chemotherapy and surgery. His blood pressure is borderline high today, but it is OK when he checks it at home. He will continue to monitor it. Signed By: Royal Solano M.D. <<Signature on File>>
== END 2020-11-02 11:02 | disposition home or self-care (01) ==
LOC: ONCMED 11:03
PROVIDERS: PCP Nurse Practitioner; Visit Provider Internal Medicine Medical Oncology
DX: Z08 Encounter for follow-up examination after completed treatment for malignant neoplasm (principal); Z85.07 Personal history of malignant neoplasm of pancreas; Z92.3 Personal history of irradiation; Z92.21 Personal history of antineoplastic chemotherapy; Z90.411 Acquired partial absence of pancreas; Z90.49 Acquired absence of other specified parts of digestive tract
CPT/HCPCS: 36591; 80053; 85025; 86301; 99214

== ENCOUNTER 2020-12-02 09:32 | Outpatient (CLI) | payer OTHER, SELFPAY | END 2020-12-02 09:33 | disposition home or self-care (01) | LOC: ONCMED 09:32 | PROVIDERS: PCP Nurse Practitioner; Visit Provider Internal Medicine Medical Oncology | DX: Z45.2 Encounter for adjustment and management of vascular access device (principal) | CPT/HCPCS: 96523 ==

== ENCOUNTER 2021-02-03 09:10 | Outpatient (CLI) | payer OTHER, SELFPAY ==
[2021-02-03 09:57] LABS: Basophils % 0.5 %; Eosinophils # 0.1 10^3/uL (0.0-0.8); Eosinophils % 3.3 %; Hematocrit 40.9 % (42.0-52.0); Hemoglobin 13.8 g/dL (11.7-16.6); Lymphocytes # 0.4 10^3/uL (0.8-4.8); Lymphocytes % 10.6 %; Mean Corpuscular HGB Conc 33.7 g/dL (30.0-36.0); Mean Corpuscular Hemoglobin 32.5 pg (28.0-34.0); Mean Corpuscular Volume 96.5 fL (80-94); Mean Platelet Volume 9.3 fL (7.4-10.4); Monocytes # 0.4 10^3/uL (0.2-0.9); Monocytes % 9.8 %; Neutrophils # 2.99 10^3/uL (1.8-7.7); Neutrophils % 75.5 %; Nucleated Red Blood Cells % 0 %; Platelet Count 184 10^3/cmm (130-400); Red Blood Count 4.24 10^6/uL (4.1-5.3); Red Cell Distribution Width 12.4 % (12.1-15.1)
[2021-02-03 10:52] LABS: Alanine Aminotransferase 19 U/L (0-41); Albumin Level 3.5 g/dL (3.5-5.2); Alkaline Phosphatase 108 IU/L (40-130); Anion Gap 8.7 (5-19); Aspartate Amino Transferase 22 U/L (0-40); Blood Urea Nitrogen 7 mg/dL (8-23); Calcium 8.1 mg/dL (8.5-10.5); Cancer Antigen 19 9 189.9 U/mL (0-35); Carbon Dioxide 27 mmol/L (22-29); Chloride 108 mmol/L (98-107); Globulin 2.2 g/dL (1.3-4.6); Glomerular Filtration Rate 85.5 mL/min (90-130); Glucose 135 mg/dL (65-115); Osmolality Calculated 290 mOsm/kg (285-295); Potassium 3.7 mmol/L (3.5-5.1); Sodium 140 mmol/L (136-145); Total Bilirubin 0.3 mg/dL (0.15-1.2); Total Protein 5.7 g/dL (6.6-8.7)
== END 2021-02-03 09:11 | disposition home or self-care (01) ==
LOC: ONCMED 09:11
PROVIDERS: PCP Nurse Practitioner; Visit Provider Internal Medicine Medical Oncology
DX: C25.0 Malignant neoplasm of head of pancreas (principal); C77.8 Secondary and unspecified malignant neoplasm of lymph nodes of multiple regions; I10 Essential (primary) hypertension; J30.9 Allergic rhinitis, unspecified; K21.9 Gastro-esophageal reflux disease without esophagitis; Z79.899 Other long term (current) drug therapy
CPT/HCPCS: 36415; 36591; 80053; 85025; 86301

== ENCOUNTER 2021-02-24 10:58 | Outpatient (CLI) | payer OTHER, SELFPAY ==
--- NOTE | 2021-02-24 12:31 | ONC FU_ITS ---
Dr. Solano Patient Follow-Up Note Patient: Gavino Ingram Unit #: [id number]: [id number] Dicatated By: Royal Solano M.D.Date of Visit:February 24, 2021 Onc Med Follow-up/Prog Note Chief Complaint: Pancreatic cancer. History of Present Illness: This is a 60 year-old man with adenocarcinoma of the pancreas, pathologic stage IIB (pT2, pN1, M0). On 11/02/2019 he presented to the emergency room with jaundice. His total bilirubin at that time was 13.4 mg/dL. The liver enzymes were moderately elevated with alkaline phosphatase 257/130 IU/L, SGOT 98/40 U/L and SGPT 105/41 U/L. Abdominal CT scan showed significantly dilated biliary tree and common hepatic duct with a transition point at the common hepatic-common bile duct junction. The findings were suspicious for underlying stricture or occult mass. There were several mildly enlarged portacaval lymph nodes measuring up to 2 cm. He was transferred to [facility] for admission. On 11/03/2019 he underwent ERCP with placement of biliary stent. He was noted to have a malignant appearing stricture in the mid common bile duct, suspicious for pancreatic neoplasm. On 12/01/2019 he underwent repeat ERCP with placement of partially covered metal stent, and he underwent endoscopic ultrasound with FNA biopsy of a 3.5 x 2.7 cm mass lesion involving the head of the pancreas. The mass was noted to be in close proximity to the vessels but without overt infiltration. There was no celiac axis adenopathy appreciated. Cytology on the FNA biopsy was positive for adenocarcinoma. Staging CT scans of the chest, abdomen, and pelvis on 12/09/2019 showed multiple small bilateral noncalcified pulmonary nodules ranging in size from 2 to 4 mm. There was no evidence of metastatic involvement in the liver. A rounded focus surrounding the pancreatic head measuring 2.9 x 3.6 cm, including adjacent inflammatory changes, was noted to partially obscure a 3 x 1.7 cm pancreatic head mass which had been noted on the preoperative study. Also noted was a necrotic appearing mass/lymph node within the pancreatic head measuring 1.9 cm. A mildly prominent gastrohepatic lymph node measured 1.5 cm. There was no mesenteric adenopathy noted. He was seen by Dr. Davidson for surgical consultation, and then underwent placement of Port-A-Cath venous access device in preparation for neoadjuvant chemotherapy. I had seen him initially on 12/16/2019. As he was generally in good health and had excellent performance status, I had recommended a trial of neoadjuvant chemotherapy with FOLFIRINOX. He completed 6 cycles of treatment between December and March 2020. Toxicities included fatigue, neutropenia, and neuropathy. His cycle 3 had to be delayed by 2 weeks, and at that point he also required a dose reduction. Overall, though, he tolerated the treatment well. He did show a significant decline in his CA-19-9 level, from 339.2 U/mL to 124.4 U/mL. On 04/26/2020 he underwent exploratory laparotomy with pancreaticoduodenectomy, portal (abdominal) lymph node dissection, feeding jejunostomy, omental pedicle flap, and cholecystectomy. On visual inspection, the gallbladder appeared acutely inflamed. There also appeared to be a lot of inflammation in the pancreas, and there were 2 large cyst on his pancreas, consistent with probable pancreatitis. There is a significant desmoplastic reaction in the peritoneum. There was no gross evidence of metastatic disease. Pathology showed well-differentiated ductal adenocarcinoma measuring 3.3 cm in greatest dimension. The bile duct margin, proximal margin, and distal margin were uninvolved, but the pancreatic neck/parenchymal margin and the uncinated/retroperitoneal margin were both involved by invasive carcinoma. There was also involvement in 3 of 17 lymph nodes. Pathologic staging was pT2, pN1. His gallbladder, incidentally, showed marked chronic cholecystitis. Due to the involved surgical margins and the lymph node involvement, he was recommended to undergo postoperative chemoradiation. He began radiation concurrently with Xeloda on 06/27/2020. He completed treatment on 08/03/2020 to a total dose of 5040 cGy. He was significantly fatigued following the chemoradiation, but he otherwise tolerated it well. He had a follow-up visit Dr. Davidson's office on 09/20/2020. There was no evidence of recurrence by clinical evaluation or by CT scan. During his subsequent follow-up he had ongoing problems associated with ventral hernias. He had seen Dr. Davidson and had tentatively been scheduled to have hernia repair surgery earlier this week. However, in the meantime, his laboratory studies done here on 02/03/2021 showed a significant increase in his CA 19-9 level from 19.50 U/mL in October up to 189.9 U/mL. Restaging CT scans of the chest, abdomen, and pelvis on 02/17/2021 showed cardiomegaly and several nonspecific mediastinal lymph nodes measuring up to 11 mm. There was no evidence of metastatic disease in the chest. The abdomen/pelvis showed an area of soft tissue thickening there are some of the surgical clips just posterior to the SMA which appeared somewhat more prominent compared to previous study from 01/11/2021, measuring up to 20 mm short axis compared to 15 mm. There was no adenopathy or other evidence of metastatic disease. He has been feeling pretty good generally. His main complaint is that he is having discomfort associated with the abdominal hernias. He is still pretty active. ECOG score is 1. He has good appetite. He has not had fever. He has a little bit of sweating at night. He continues to have bad sinus drainage, which is chronic. He has associated sore throat. It has been an ongoing problem for at least a year. He does not complain of cough and he is not having shortness of breath or chest pain. He does not complain of nausea and is not having acid reflux symptoms. His stools are sometimes greasy. He has no complaints. He has generalized joint pain, which is also chronic. He has just occasional headache. He also occasionally has dizziness. He has only a little residual numbness/tingling in his fingers and toes. Medications: He is currently not taking any prescription medication. Allergies: No Known Allergies. Vital Signs: Performed on February 24, 2021 11:32 Height - 71.00 in Weight - 232.6 lbs (LOW) BSA - 2.25 sq.m BMI - 32.44 (HIGH) Temperature - 98.1 F (LOW) Pulse - 64 /min Respiration - 16 /min BP - 136/83 mm(hg) O2 Sat - 98 % Pain - 4 Physical Examination: Constitutional - He looks pretty good generally, Eyes - Sclerae nonicteric. Conjunctivae clear, ENMT - No lesions noted in the oral cavity, Hematologic/Lymphatic - No cervical, clavicular, or axillary adenopathy, Respiratory - Lungs are clear with good air movement bilaterally, Cardiovascular - Heart rhythm is regular. There is no murmur, gallop, or rub noted, Abdomen - Soft. He has at least 2 areas of ventral herniation. There is some associated tenderness. Liver and spleen are not enlarged. There is no abdominal mass or ascites noted and there is no inguinal adenopathy, Extremities - No edema, Neurologic - No focal neurologic deficits noted. Lab/Imaging: Test performed on Feb 03, 2021 09:35 Sodium 140 mmol/L Potassium 3.7 mmol/L Chloride 108 mmol/L CO2 27 mmol/L Anion Gap 8.7 BUN 7 mg/dL Creatinine 0.9 mg/dL Cr Clearance (Est) 135.7400 mL/min eGFR 85.5 mL/min Glucose 135 mg/dL Osmolality - Calculated 290 mOsm/kg Calcium 8.1 mg/dL Protein, Total 5.7 g/dL Albumin 3.5 g/dL Globulin 2.2 g/dL Bilirubin, Total 0.3 mg/dL ALT (SGPT) 19 U/L AST (SGOT) 22 U/L Alkaline Phosphatase 108 IU/L WBC 4.0 10 3/uL RBC 4.24 10 6/uL HGB 13.8 g/dL HCT 40.9 % MCV 96.5 fL MCH 32.5 pg MCHC 33.7 g/dL RDW 12.4 % Platelet Count 184 10 3/cmm MPV 9.3 fL Neutrophils 2.99 10 3/uL Lymphocytes 0.4 10 3/uL Monocytes 0.4 10 3/uL Eosinophils 0.1 10 3/uL Basophils 0.0 10 3/uL Neutrophil % 75.5 % Lymphocyte % 10.6 % Monocyte % 9.8 % Eosinophil % 3.3 % Basophils % 0.5 % NRBC % 0 % CA 19-9 189.9 U/mL Problem List: 1. Well differentiated adenocarcinoma of the head of the pancreas, pathologic stage IIB (pT2, pN1, M0). 2. He underwent ERCP with placement of biliary stent on 11/03/2019, and on 12/01/2019 he underwent repeat ERCP with placement of partially covered metal stent and endoscopic ultrasound with FNA biopsy of pancreatic head mass. 3. From December through March 2020 he completed 6 cycles of neoadjuvant FOLFIRINOX chemotherapy. He required a dose reduction for neutropenia and neuropathy, but overall he tolerated the treatment well. 4. On 04/26/2020 he underwent exploratory laparotomy with pancreaticoduodenectomy, portal (abdominal) lymph node dissection, feeding jejunostomy, omental pedicle flap, and cholecystectomy. Pathology showed well-differentiated ductal adenocarcinoma measuring 3.3 cm in greatest dimension. There was involvement in 3/17 lymph nodes. In addition, the pancreatic neck/parenchymal and the uncinated/retroperitoneal margins were involved by invasive carcinoma. 5. Due to the involved surgical margins and the lymph node involvement, he was recommended to undergo postoperative radiation concurrently with Xeloda for chemosensitization. He began radiation on 06/27/2020. He completed treatment on 08/03/2020 to a total dose of 5040 [address]Gy[address] 6[address] His initial CT scans showed multiple small noncalcified pulmonary nodules bilaterally, ranging in size from 2 to 4 mm. These were nonspecific, but early metastatic disease was not excluded. These appeared stable on his 03/16/[address] scans. 7. Hypertension. 8. Allergic rhinitis. 9. GERD and history of peptic ulcer disease. Problems Addressed with this Encounter and Plan: Patient with well differentiated adenocarcinoma of the head of the pancreas, pathologic stage IIB (pT2, pN1, M0). His treatment included 6 cycles of neoadjuvant FOLFIRINOX chemotherapy followed by pancreaticoduodenectomy in April 2020. Pathology showed well-differentiated ductal adenocarcinoma measuring 3.3 cm in greatest dimension. There was involvement in 3/17 lymph nodes. In addition, the pancreatic neck/parenchymal and the uncinated/retroperitoneal margins were involved by invasive carcinoma. With evidence of lymph node involvement and with a positive surgical margin he was given postoperative chemoradiation. He completed treatment on 08/03/2020 to a total radiation dose of 5040 cGy. He began on expectant management following completion of the chemotherapy and radiation. During follow-up he had ongoing complaints associated with ventral abdominal hernias. He had been scheduled to undergo hernia repair surgery earlier this week. However, his laboratory studies from 02/03/2021 showed a significant increase in his CA 19-9 level, to 189.9 units/mL compared to 19.50 units/mL in October. His restaging CT scans of the chest, abdomen, and pelvis on 02/17/2021 showed increased soft tissue thickening near some of the surgical clips just posterior to the SMA which had increased compared to a previous study from 01/11/2021. Taken together the increased tumor marker and CT changes are suspicious for recurrent tumor in the surgical bed. With those findings, his hernia repair surgery was canceled. He will be scheduled now for further evaluation with PET/CT, and I will then see him to discuss further management when the PET/CT results are available. Signed By: Royal Solano M.D. <<Signature on File>>
== END 2021-02-24 10:59 | disposition home or self-care (01) ==
PROVIDERS: PCP Nurse Practitioner; Visit Provider Internal Medicine Medical Oncology
DX: C25.0 Malignant neoplasm of head of pancreas (principal); C77.8 Secondary and unspecified malignant neoplasm of lymph nodes of multiple regions; C78.5 Secondary malignant neoplasm of large intestine and rectum; I10 Essential (primary) hypertension; J30.9 Allergic rhinitis, unspecified; K21.9 Gastro-esophageal reflux disease without esophagitis; Z87.11 Personal history of peptic ulcer disease; Z79.899 Other long term (current) drug therapy; Z92.21 Personal history of antineoplastic chemotherapy
CPT/HCPCS: 99214

== ENCOUNTER 2021-03-08 06:13 | Outpatient (CLI) | payer OTHER, SELFPAY ==
--- NOTE | 2021-03-12 10:48 | ONC FU_ITS ---
Dr. Solano Patient Follow-Up Note Patient: Gavino Ingram Unit #: [id number]: [id number] Dicatated By: Royal Solano M.D.Date of Visit:Mar 08, 2021 Onc Med Follow-up/Prog Note Chief Complaint: Pancreatic cancer. History of Present Illness: This is a 60 year-old man with adenocarcinoma of the pancreas, pathologic stage IIB (pT2, pN1, M0). On 11/02/2019 he presented to the emergency room with jaundice. His total bilirubin at that time was 13.4 mg/dL. The liver enzymes were moderately elevated with alkaline phosphatase 257/130 IU/L, SGOT 98/40 U/L and SGPT 105/41 U/L. Abdominal CT scan showed significantly dilated biliary tree and common hepatic duct with a transition point at the common hepatic-common bile duct junction. The findings were suspicious for underlying stricture or occult mass. There were several mildly enlarged portacaval lymph nodes measuring up to 2 cm. He was transferred to [facility] for admission. On 11/03/2019 he underwent ERCP with placement of biliary stent. He was noted to have a malignant appearing stricture in the mid common bile duct, suspicious for pancreatic neoplasm. On 12/01/2019 he underwent repeat ERCP with placement of partially covered metal stent, and he underwent endoscopic ultrasound with FNA biopsy of a 3.5 x 2.7 cm mass lesion involving the head of the pancreas. The mass was noted to be in close proximity to the vessels but without overt infiltration. There was no celiac axis adenopathy appreciated. Cytology on the FNA biopsy was positive for adenocarcinoma. Staging CT scans of the chest, abdomen, and pelvis on 12/09/2019 showed multiple small bilateral noncalcified pulmonary nodules ranging in size from 2 to 4 mm. There was no evidence of metastatic involvement in the liver. A rounded focus surrounding the pancreatic head measuring 2.9 x 3.6 cm, including adjacent inflammatory changes, was noted to partially obscure a 3 x 1.7 cm pancreatic head mass which had been noted on the preoperative study. Also noted was a necrotic appearing mass/lymph node within the pancreatic head measuring 1.9 cm. A mildly prominent gastrohepatic lymph node measured 1.5 cm. There was no mesenteric adenopathy noted. He was seen by Dr. Davidson for surgical consultation, and then underwent placement of Port-A-Cath venous access device in preparation for neoadjuvant chemotherapy. I had seen him initially on 12/16/2019. As he was generally in good health and had excellent performance status, I had recommended a trial of neoadjuvant chemotherapy with FOLFIRINOX. He completed 6 cycles of treatment between December and March 2020. Toxicities included fatigue, neutropenia, and neuropathy. His cycle 3 had to be delayed by 2 weeks, and at that point he also required a dose reduction. Overall, though, he tolerated the treatment well. He did show a significant decline in his CA-19-9 level, from 339.2 U/mL to 124.4 U/mL. On 04/26/2020 he underwent exploratory laparotomy with pancreaticoduodenectomy, portal (abdominal) lymph node dissection, feeding jejunostomy, omental pedicle flap, and cholecystectomy. On visual inspection, the gallbladder appeared acutely inflamed. There also appeared to be a lot of inflammation in the pancreas, and there were 2 large cyst on his pancreas, consistent with probable pancreatitis. There is a significant desmoplastic reaction in the peritoneum. There was no gross evidence of metastatic disease. Pathology showed well-differentiated ductal adenocarcinoma measuring 3.3 cm in greatest dimension. The bile duct margin, proximal margin, and distal margin were uninvolved, but the pancreatic neck/parenchymal margin and the uncinated/retroperitoneal margin were both involved by invasive carcinoma. There was also involvement in 3 of 17 lymph nodes. Pathologic staging was pT2, pN1. His gallbladder, incidentally, showed marked chronic cholecystitis. Due to the involved surgical margins and the lymph node involvement, he was recommended to undergo postoperative chemoradiation. He began radiation concurrently with Xeloda on 06/27/2020. He completed treatment on 08/03/2020 to a total dose of 5040 cGy. He was significantly fatigued following the chemoradiation, but he otherwise tolerated it well. He had a follow-up visit Dr. Davidson's office on 09/20/2020. There was no evidence of recurrence by clinical evaluation or by CT scan. During his subsequent follow-up he had ongoing problems associated with ventral hernias. He had seen Dr. Davidson and had tentatively been scheduled to have hernia repair surgery. However, in the meantime, his laboratory studies done here on 02/03/2021 showed a significant increase in his CA 19-9 level from 19.50 U/mL in October up to 189.9 U/mL. Restaging CT scans of the chest, abdomen, and pelvis on 02/17/2021 showed cardiomegaly and several nonspecific mediastinal lymph nodes measuring up to 11 mm. There was no evidence of metastatic disease in the chest. The abdomen/pelvis showed an area of soft tissue thickening there are some of the surgical clips just posterior to the SMA which appeared somewhat more prominent compared to previous study from 01/11/2021, measuring up to 20 mm short axis compared to 15 mm. There was no adenopathy or other evidence of metastatic disease. Further evaluation with PET/CT on 03/02/2021 focally increased activity associated with a 1.5 x 1.8 cm mass in dez pancreatic body, maximum SUV 6.44. Also noted was focally increased metabolic activity in what appeared to be the uncinate process of the pancreas, maximum SUV 5.63. There were no other areas of abnormal uptake. The findings were consistent with tumor recurrence in the pancreas body and uncinate process. He is seen now for review of the PET/CT and to discuss further management. He is still feeling pretty good generally, though he does have discomfort associated with his abdominal hernias. Medications: He is currently not on any prescription medication. Allergies: No Known Allergies. Vital Signs: Performed on Mar 08, 2021 14:16 Height - 71.00 in Weight - 238 lbs (HIGH) BSA - 2.27 sq.m BMI - 33.19 (HIGH) Temperature - 98.4 F Pulse - 61 /min Respiration - 18 /min BP - 154/89 mm(hg) (HIGH) O2 Sat - 99 % Pain - 4 Fatigue - 0 Problem List: 1. Well differentiated adenocarcinoma of the head of the pancreas, pathologic stage IIB (pT2, pN1, M0). 2. He underwent ERCP with placement of biliary stent on 11/03/2019, and on 12/01/2019 he underwent repeat ERCP with placement of partially covered metal stent and endoscopic ultrasound with FNA biopsy of pancreatic head mass. 3. From December through March 2020 he completed 6 cycles of neoadjuvant FOLFIRINOX chemotherapy. He required a dose reduction for neutropenia and neuropathy, but overall he tolerated the treatment well. 4. On 04/26/2020 he underwent exploratory laparotomy with pancreaticoduodenectomy, portal (abdominal) lymph node dissection, feeding jejunostomy, omental pedicle flap, and cholecystectomy. Pathology showed well-differentiated ductal adenocarcinoma measuring 3.3 cm in greatest dimension. There was involvement in 3/17 lymph nodes. In addition, the pancreatic neck/parenchymal and the uncinated/retroperitoneal margins were involved by invasive carcinoma. 5. Due to the involved surgical margins and the lymph node involvement, he was recommended to undergo postoperative radiation concurrently with Xeloda for chemosensitization. He began radiation on 06/27/2020. He completed treatment on 08/03/2020 to a total dose of 5040 cGy. 6[address] His initial CT scans showed multiple small noncalcified pulmonary nodules bilaterally, ranging in size from 2 to 4 mm. These were nonspecific, but early metastatic disease was not excluded. These appeared stable on his 03/16/[address] scans. 7. Hypertension. 8. Allergic rhinitis. 9. GERD and history of peptic ulcer disease. Problems Addressed with this Encounter and Plan: Patient with well differentiated adenocarcinoma of the head of the pancreas, pathologic stage IIB (pT2, pN1, M0). His treatment included 6 cycles of neoadjuvant FOLFIRINOX chemotherapy followed by pancreaticoduodenectomy in April 2020. Pathology showed well-differentiated ductal adenocarcinoma measuring 3.3 cm in greatest dimension. There was involvement in 3/17 lymph nodes. In addition, the pancreatic neck/parenchymal and the uncinated/retroperitoneal margins were involved by invasive carcinoma. With evidence of lymph node involvement and with a positive surgical margin he was given postoperative chemoradiation. He completed treatment on 08/03/2020 to a total radiation dose of 5040 cGy. He began on expectant management following completion of the chemotherapy and radiation. During follow-up he had ongoing complaints associated with ventral abdominal hernias. He had been scheduled to undergo hernia repair surgery but his laboratory studies from 02/03/2021 showed a significant increase in his CA 19-9 level, to 189.9 units/mL compared to 19.50 units/mL in October. His restaging CT scans of the chest, abdomen, and pelvis on 02/17/2021 showed increased soft tissue thickening near some of the surgical clips just posterior to the SMA which had increased compared to a previous study from 01/11/2021. Taken together the increased tumor marker and CT changes are suspicious for recurrent tumor in the surgical bed. With those findings, his hernia repair surgery was canceled. Further evaluation with PET/CT on 03/02/2021 showed evidence of recurrence in the pancreatic body and uncinate process. There were no other areas of abnormal uptake noted on that study. The PET/CT findings were reviewed and we discussed the clinical implications. He has evidence of recurrence locally, but without evidence of other metastatic disease. He has indicated that he does not wish to pursue any further chemotherapy. As such, I will request a next generation sequencing study on his primary tumor to determine if there may be other treatment options available. In the meantime, I also will plan to confer with Dr. Davidson to see if there may be an option for further surgical resection. Signed By: Royal Solano M.D. <<Signature on File>>
== END 2021-03-08 06:14 | disposition home or self-care (01) ==
LOC: ONCMED 06:14
PROVIDERS: PCP Nurse Practitioner; Visit Provider Internal Medicine Medical Oncology
DX: Z08 Encounter for follow-up examination after completed treatment for malignant neoplasm (principal); Z85.07 Personal history of malignant neoplasm of pancreas; Z29.3 Encounter for prophylactic fluoride administration; Z92.21 Personal history of antineoplastic chemotherapy; I10 Essential (primary) hypertension; J30.9 Allergic rhinitis, unspecified; K21.9 Gastro-esophageal reflux disease without esophagitis; Z87.11 Personal history of peptic ulcer disease
CPT/HCPCS: 99214

== ENCOUNTER 2021-05-26 09:36 | Outpatient (CLI) | payer OTHER, SELFPAY ==
[2021-05-26 10:49] LABS: Basophils % 0.5 %; Eosinophils # 0.1 10^3/uL (0.0-0.8); Eosinophils % 2.3 %; Hematocrit 42.2 % (42.0-52.0); Hemoglobin 14.3 g/dL (11.7-16.6); Lymphocytes # 0.6 10^3/uL (0.8-4.8); Lymphocytes % 15.7 %; Mean Corpuscular HGB Conc 33.9 g/dL (30.0-36.0); Mean Corpuscular Hemoglobin 33.4 pg (28.0-34.0); Mean Corpuscular Volume 98.6 fl (80-94); Mean Platelet Volume 9.9 fL (7.4-10.4); Monocytes # 0.4 10^3/uL (0.2-0.9); Monocytes % 10.7 %; Neutrophils # 2.78 10^3/uL (1.8-7.7); Neutrophils % 70.5 %; Nucleated Red Blood Cells % 0 %; Platelet Count 162 10^3/cmm (130-400); Red Blood Count 4.28 10^6/uL (4.1-5.3); Red Cell Distribution Width 12.1 % (12.1-15.1); White Blood Count 3.9 10^3/uL (4.0-10.0)
[2021-05-26 11:30] LABS: Alanine Aminotransferase 30 U/L (0-41); Albumin Level 3.7 g/dL (3.5-5.2); Alkaline Phosphatase 104 IU/L (40-130); Anion Gap 10.6 (5-19); Aspartate Amino Transferase 27 U/L (0-40); Blood Urea Nitrogen 8 mg/dL (8-23); Calcium 8.3 mg/dL (8.5-10.5); Cancer Antigen 19 9 786.7 U/mL (0-35); Carbon Dioxide 26 mmol/L (22-29); Chloride 106 mmol/L (98-107); Globulin 2.3 g/dL (1.3-4.6); Glomerular Filtration Rate 114.3 mL/min (90-130); Glucose 105 mg/dL (65-115); Osmolality Calculated 287 mOsm/kg (285-295); Potassium 3.6 mmol/L (3.5-5.1); Sodium 139 mmol/L (136-145); Total Bilirubin 0.4 mg/dL (0.15-1.2)
== END 2021-05-26 09:37 | disposition home or self-care (01) ==
LOC: ONCMED 09:37
PROVIDERS: PCP Nurse Practitioner; Visit Provider Internal Medicine Medical Oncology
DX: C25.0 Malignant neoplasm of head of pancreas (principal); Z79.899 Other long term (current) drug therapy
CPT/HCPCS: 36591; 80053; 85025; 86301

== ENCOUNTER 2021-05-29 06:15 | Outpatient (CLI) | payer OTHER, SELFPAY ==
--- NOTE | 2021-05-30 09:25 | ONC FU_ITS ---
Dr. Solano Patient Follow-Up Note Patient: Gavino Ingram Unit #: [id number]: [id number] Dicatated By: Royal Solano M.D.Date of Visit:May 29, 2021 Onc Med Follow-up/Prog Note Chief Complaint: Pancreatic cancer. History of Present Illness: This is a 60 year-old man with adenocarcinoma of the pancreas, initially pathologic stage IIB (pT2, pN1, M0), but with subsequent recurrence. On 11/02/2019 he presented to the emergency room with jaundice. His total bilirubin at that time was 13.4 mg/dL. The liver enzymes were moderately elevated with alkaline phosphatase 257/130 IU/L, SGOT 98/40 U/L and SGPT 105/41 U/L. Abdominal CT scan showed significantly dilated biliary tree and common hepatic duct with a transition point at the common hepatic-common bile duct junction. The findings were suspicious for underlying stricture or occult mass. There were several mildly enlarged portacaval lymph nodes measuring up to 2 cm. He was transferred to [facility] for [facility]. On 11/03/2019 he underwent ERCP with placement of biliary stent. He was noted to have a malignant appearing stricture in the mid common bile duct, suspicious for pancreatic neoplasm. On 12/01/2019 he underwent repeat ERCP with placement of partially covered metal stent, and he underwent endoscopic ultrasound with FNA biopsy of a 3.5 x 2.7 cm mass lesion involving the head of the pancreas. The mass was noted to be in close proximity to the vessels but without overt infiltration. There was no celiac axis adenopathy appreciated. Cytology on the FNA biopsy was positive for adenocarcinoma. Staging CT scans of the chest, abdomen, and pelvis on 12/09/2019 showed multiple small bilateral noncalcified pulmonary nodules ranging in size from 2 to 4 mm. There was no evidence of metastatic involvement in the liver. A rounded focus surrounding the pancreatic head measuring 2.9 x 3.6 cm, including adjacent inflammatory changes, was noted to partially obscure a 3 x 1.7 cm pancreatic head mass which had been noted on the preoperative study. Also noted was a necrotic appearing mass/lymph node within the pancreatic head measuring 1.9 cm. A mildly prominent gastrohepatic lymph node measured 1.5 cm. There was no mesenteric adenopathy noted. He was seen by Dr. Davidson for surgical consultation, and then underwent placement of Port-A-Cath venous access device in preparation for neoadjuvant chemotherapy. I had seen him initially on 12/16/2019. As he was generally in good health and had excellent performance status, I had recommended a trial of neoadjuvant chemotherapy with FOLFIRINOX. He completed 6 cycles of treatment between December and March 2020. Toxicities included fatigue, neutropenia, and neuropathy. His cycle 3 had to be delayed by 2 weeks, and at that point he also required a dose reduction. Overall, though, he tolerated the treatment well. He did show a significant decline in his CA-19-9 level, from 339.2 U/mL to 124.4 U/mL. On 04/26/2020 he underwent exploratory laparotomy with pancreaticoduodenectomy, portal (abdominal) lymph node dissection, feeding jejunostomy, omental pedicle flap, and cholecystectomy. On visual inspection, the gallbladder appeared acutely inflamed. There also appeared to be a lot of inflammation in the pancreas, and there were 2 large cyst on his pancreas, consistent with probable pancreatitis. There is a significant desmoplastic reaction in the peritoneum. There was no gross evidence of metastatic disease. Pathology showed well-differentiated ductal adenocarcinoma measuring 3.3 cm in greatest dimension. The bile duct margin, proximal margin, and distal margin were uninvolved, but the pancreatic neck/parenchymal margin and the uncinated/retroperitoneal margin were both involved by invasive carcinoma. There was also involvement in 3 of 17 lymph nodes. Pathologic staging was pT2, pN1. His gallbladder, incidentally, showed marked chronic cholecystitis. Due to the involved surgical margins and the lymph node involvement, he was recommended to undergo postoperative chemoradiation. He began radiation concurrently with Xeloda on 06/27/2020. He completed treatment on 08/03/2020 to a total dose of 5040 cGy. He was significantly fatigued following the chemoradiation, but he otherwise tolerated it well. He had a follow-up visit Dr. Davidson's office on 09/20/2020. There was no evidence of recurrence by clinical evaluation or by CT scan. During his subsequent follow-up he had ongoing problems associated with ventral hernias. He had seen Dr. Davidson and had tentatively been scheduled to have hernia repair surgery. However, in the meantime, his laboratory studies done here on 02/03/2021 showed a significant increase in his CA 19-9 level from 19.50 U/mL in October up to 189.9 U/mL. Restaging CT scans of the chest, abdomen, and pelvis on 02/17/2021 showed cardiomegaly and several nonspecific mediastinal lymph nodes measuring up to 11 mm. There was no evidence of metastatic disease in the chest. The abdomen/pelvis showed an area of soft tissue thickening near some of the surgical clips just posterior to the SMA which appeared somewhat more prominent compared to previous study from 01/11/2021, measuring up to 20 mm short axis compared to 15 mm. There was no adenopathy or other evidence of metastatic disease. Further evaluation with PET/CT on 03/02/2021 focally increased activity associated with a 1.5 x 1.8 cm mass in the pancreatic body, maximum SUV 6.44. Also noted was focally increased metabolic activity in what appeared to be the uncinate process of the pancreas, maximum SUV 5.63. There were no other areas of abnormal uptake. The findings were consistent with tumor recurrence in the pancreas body and uncinate process. I had seen him for a follow-up visit on 03/08/2021. At that point he indicated that he was not interested in attempting any further chemotherapy. I did review the PET/CT findings with Dr. Davidson, and he indicated that the patient was not a candidate for any further surgical resection. I also requested further evaluation with next generation sequencing study, which showed no actionable mutations. The PD-L1 expression was negative and the tumor mutational burden was low. As I did not had any other treatment options to recommend, he opted to just continue with symptomatic/supportive care. He is seen now for a follow-up visit. Following his last visit, he had taken a 2-month vacation, and during that time he really felt pretty good generally. He returned about a month ago, and since then he has declined gradually. He says that today, in particular, he has felt like crap. He has been having pain in his mid abdominal area and left upper quadrant, severe enough that he cannot sleep. He is also having a lot of intestinal gas and frequent bowel movements, and today actually did have some diarrhea. He has had some nausea, no vomiting. He has acid reflux, but he is managing it adequately with Tums. He has had gradual decline in his energy and activity tolerance. His ECOG score is 2. He has good appetite, but he has been losing weight. By our scale he is down 12 pounds since March. He occasionally feels hot, but he has not had fever or night sweats. He has a little bit of sinus drainage. He always has sore throat. He sometimes has shortness of breath, but his breathing is usually okay. He has had very occasional chest pain. He has no complaints. Recently he has been having generalized pain from the tips of his toes to the top of his head. He is otherwise not having headache. He sometimes has dizziness and he sometimes has numbness/tingling. His indicates that he is sometimes shaky when he first gets up in the morning. Medications: Acetaminophen 1 - 2 Tablet (of 500 mg) Oral at bedtime Allergies: No Known Allergies. Vital Signs: Performed on May 29, 2021 09:06 Height - 71.00 in Weight - 226.6 lbs (LOW) BSA - 2.22 sq.m BMI - 31.60 (HIGH) Temperature - 981 F (HIGH) Pulse - 91 /min Respiration - 18 /min BP - 164/107 mm(hg) (HIGH) O2 Sat - 98 % Pain - 8 Fatigue - 8 Physical Examination: Constitutional - He appears somewhat weak generally, Eyes - Sclerae nonicteric. Conjunctivae clear, ENMT - No lesions noted in the oral cavity, Hematologic/Lymphatic - No cervical, clavicular, or axillary adenopathy, Respiratory - Lungs are clear with good air movement bilaterally, Cardiovascular - Heart rhythm is regular. There is no murmur, gallop, or rub noted, Abdomen - Mildy distended. He has ventral hernias. There is tenderness, especially in the left mid and upper abdomen. Liver and spleen are not enlarged. There is no abdominal mass or ascites noted and there is no inguinal adenopathy, Extremities - Mild edema, Neurologic - No focal neurologic deficits noted. Lab/Imaging: CBC shows hemoglobin 14.3 g, white blood cell count 3900, and platelet count 162,000. Comprehensive metabolic profile shows stable renal function with BUN 8 and creatinine 0.7 mg/dL. Bilirubin and liver enzymes are normal. Albumin is normal at 3.7 g/dL. The CA 19-9 level is now up to 786.7 U/mL. Problem List: 1. Well differentiated adenocarcinoma of the head of the pancreas, pathologic stage IIB (pT2, pN1, M0). 2. He underwent ERCP with placement of biliary stent on 11/03/2019, and on 12/01/2019 he underwent repeat ERCP with placement of partially covered metal stent and endoscopic ultrasound with FNA biopsy of pancreatic head mass. 3. From December through March 2020 he completed 6 cycles of neoadjuvant FOLFIRINOX chemotherapy. He required a dose reduction for neutropenia and neuropathy, but overall he tolerated the treatment well. 4. On 04/26/2020 he underwent exploratory laparotomy with pancreaticoduodenectomy, portal (abdominal) lymph node dissection, feeding jejunostomy, omental pedicle flap, and cholecystectomy. Pathology showed well-differentiated ductal adenocarcinoma measuring 3.3 cm in greatest dimension. There was involvement in 3/17 lymph nodes. In addition, the pancreatic neck/parenchymal and the uncinated/retroperitoneal margins were involved by invasive carcinoma. 5. Due to the involved surgical margins and the lymph node involvement, he was recommended to undergo postoperative radiation concurrently with Xeloda for chemosensitization. He began radiation on 06/27/2020. He completed treatment on 08/03/2020 to a total dose of 50[address] 6[address] His initial [address] scans showed multiple small noncalcified pulmonary nodules bilaterally, ranging in size from 2 to 4 mm. These were nonspecific, but early metastatic disease was not excluded. These appeared stable on his 03/16/[address] scans. 7. Hypertension. 8. Allergic rhinitis. 9. GERD and history of peptic ulcer disease. Problems Addressed with this Encounter and Plan: Patient with well differentiated adenocarcinoma of the head of the pancreas, pathologic stage IIB (pT2, pN1, M0). His treatment included 6 cycles of neoadjuvant FOLFIRINOX chemotherapy followed by pancreaticoduodenectomy in April 2020. Pathology showed well-differentiated ductal adenocarcinoma measuring 3.3 cm in greatest dimension. There was involvement in 3/17 lymph nodes. In addition, the pancreatic neck/parenchymal and the uncinated/retroperitoneal margins were involved by invasive carcinoma. With evidence of lymph node involvement and with a positive surgical margin he was given postoperative chemoradiation. He completed treatment on 08/03/2020 to a total radiation dose of 5040 cGy. He began on expectant management following completion of the chemotherapy and radiation. During follow-up he had ongoing complaints associated with ventral abdominal hernias. He had been scheduled to undergo hernia repair surgery but his laboratory studies from 02/03/2021 showed a significant increase in his CA 19-9 level, to 189.9 units/mL compared to 19.50 units/mL in October. His restaging CT scans of the chest, abdomen, and pelvis on 02/17/2021 showed increased soft tissue thickening near some of the surgical clips just posterior to the SMA which had increased compared to a previous study from 01/11/2021. Taken together the increased tumor marker and CT changes are suspicious for recurrent tumor in the surgical bed. With those findings, his hernia repair surgery was canceled. Further evaluation with PET/CT on 03/02/2021 showed evidence of recurrence in the pancreatic body and uncinate process. There were no other areas of abnormal uptake noted on that study. Given the results of the PET CT scan, patient indicated that he was not wanting to attempt any further chemotherapy. Dr. Davidson had indicated that he was not a candidate for any further surgical resection. His next generation sequencing study showed no actionable mutations, and there were no findings to indicate potential benefit with immunotherapy. With no other treatment options available, he opted to just continue with symptomatic/supportive care. He had initially continued to feel pretty good generally. However, during the past month there has been a gradual decline in his performance status. More recently he has had worsening abdominal pain and other GI symptoms and he also has developed more nonspecific, generalized pain. There has been a very significant further increase in the CA 19-9 level, consistent with disease progression. With those findings, he will be continuing with symptomatic,/supportive care. I had a discussion with him about hospice, and he is agreeable now to hospice referral. I also talked to him about starting on pain medication, but he has been and is still very reluctant to do that. For the generalized pain he will be given a prescription for prednisone 10 mg twice daily. I am also giving him a prescription for lorazepam to take at bedtime and during the daytime as needed. I will see him again on an as-needed basis. Signed By: Royal Solano M.D. <<Signature on File>>
== END 2021-05-29 06:16 | disposition home or self-care (01) ==
LOC: ONCMED 06:16
PROVIDERS: PCP Nurse Practitioner; Visit Provider Internal Medicine Medical Oncology
DX: C25.8 Malignant neoplasm of overlapping sites of pancreas (principal); C77.5 Secondary and unspecified malignant neoplasm of intrapelvic lymph nodes; C78.6 Secondary malignant neoplasm of retroperitoneum and peritoneum
CPT/HCPCS: 99215

== ENCOUNTER 2021-09-04 09:41 | Outpatient (CLI) | payer OTHER, SELFPAY ==
[2021-09-04 11:04] LABS: Basophils % 0.5 %; Eosinophils # 0.1 10^3/uL (0.0-0.8); Eosinophils % 2.3 %; Hematocrit 37.5 % (42.0-52.0); Lymphocytes # 0.5 10^3/uL (0.8-4.8); Lymphocytes % 11.4 %; Mean Corpuscular HGB Conc 34.7 g/dL (30.0-36.0); Mean Corpuscular Hemoglobin 33.2 pg (28.0-34.0); Mean Corpuscular Volume 95.7 fl (80-94); Mean Platelet Volume 10.2 fL (7.4-10.4); Monocytes # 0.4 10^3/uL (0.2-0.9); Monocytes % 8.4 %; Neutrophils # 3.39 10^3/uL (1.8-7.7); Neutrophils % 77.2 %; Nucleated Red Blood Cells % 0 %; Platelet Count 141 10^3/cmm (130-400); Red Blood Count 3.92 10^6/uL (4.1-5.3); Red Cell Distribution Width 12.6 % (12.1-15.1); White Blood Count 4.4 10^3/uL (4.0-10.0)
[2021-09-04 11:29] LABS: Alanine Aminotransferase 32 U/L (0-41); Albumin Level 2.9 g/dL (3.5-5.2); Alkaline Phosphatase 136 IU/L (40-130); Anion Gap 11.9 (5-19); Aspartate Amino Transferase 31 U/L (0-40); Blood Urea Nitrogen 10 mg/dL (8-23); Calcium 8.4 mg/dL (8.5-10.5); Carbon Dioxide 23 mmol/L (22-29); Chloride 108 mmol/L (98-107); Globulin 2.5 g/dL (1.3-4.6); Glomerular Filtration Rate 97.6 mL/min (90-130); Glucose 84 mg/dL (65-115); Osmolality Calculated 286 mOsm/kg (285-295); Potassium 3.9 mmol/L (3.5-5.1); Sodium 139 mmol/L (136-145); Total Bilirubin 0.8 mg/dL (0.15-1.2); Total Protein 5.4 g/dL (6.6-8.7)
[2021-09-04 11:49] LABS: Cancer Antigen 19 9 1804 U/mL (0-35)
--- NOTE | 2021-09-08 19:18 | ONC FU_ITS ---
Dr. Solano Patient Follow-Up Note Patient: Gavino Ingram Unit #: [id number]: [id number] Dicatated By: Royal Solano M.D.Date of Visit:Sep 04, 2021 Onc Med Follow-up/Prog Note Chief Complaint: Pancreatic cancer. History of Present Illness: This is a 61 year-old man with adenocarcinoma of the pancreas, initially pathologic stage IIB (pT2, pN1, M0), but with subsequent recurrence. On 11/02/2019 he presented to the emergency room with jaundice. His total bilirubin at that time was 13.4 mg/dL. The liver enzymes were moderately elevated with alkaline phosphatase 257/130 IU/L, SGOT 98/40 U/L and SGPT 105/41 U/L. Abdominal CT scan showed significantly dilated biliary tree and common hepatic duct with a transition point at the common hepatic-common bile duct junction. The findings were suspicious for underlying stricture or occult mass. There were several mildly enlarged portacaval lymph nodes measuring up to 2 cm. He was transferred to [facility] for admission. On 11/03/2019 he underwent ERCP with placement of biliary stent. He was noted to have a malignant appearing stricture in the mid common bile duct, suspicious for pancreatic neoplasm. On 12/01/2019 he underwent repeat ERCP with placement of partially covered metal stent, and he underwent endoscopic ultrasound with FNA biopsy of a 3.5 x 2.7 cm mass lesion involving the head of the pancreas. The mass was noted to be in close proximity to the vessels but without overt infiltration. There was no celiac axis adenopathy appreciated. Cytology on the FNA biopsy was positive for adenocarcinoma. Staging CT scans of the chest, abdomen, and pelvis on 12/09/2019 showed multiple small bilateral noncalcified pulmonary nodules ranging in size from 2 to 4 mm. There was no evidence of metastatic involvement in the liver. A rounded focus surrounding the pancreatic head measuring 2.9 x 3.6 cm, including adjacent inflammatory changes, was noted to partially obscure a 3 x 1.7 cm pancreatic head mass which had been noted on the preoperative study. Also noted was a necrotic appearing mass/lymph node within the pancreatic head measuring 1.9 cm. A mildly prominent gastrohepatic lymph node measured 1.5 cm. There was no mesenteric adenopathy noted. He was seen by Dr. Davidson for surgical consultation, and then underwent placement of Port-A-Cath venous access device in preparation for neoadjuvant chemotherapy. I had seen him initially on 12/16/2019. As he was generally in good health and had excellent performance status, I had recommended a trial of neoadjuvant chemotherapy with FOLFIRINOX. He completed 6 cycles of treatment between December and March 2020. Toxicities included fatigue, neutropenia, and neuropathy. His cycle 3 had to be delayed by 2 weeks, and at that point he also required a dose reduction. Overall, though, he tolerated the treatment well. He did show a significant decline in his CA-19-9 level, from 339.2 U/mL to 124.4 U/mL. On 04/26/2020 he underwent exploratory laparotomy with pancreaticoduodenectomy, portal (abdominal) lymph node dissection, feeding jejunostomy, omental pedicle flap, and cholecystectomy. On visual inspection, the gallbladder appeared acutely inflamed. There also appeared to be a lot of inflammation in the pancreas, and there were 2 large cyst on his pancreas, consistent with probable pancreatitis. There is a significant desmoplastic reaction in the peritoneum. There was no gross evidence of metastatic disease. Pathology showed well-differentiated ductal adenocarcinoma measuring 3.3 cm in greatest dimension. The bile duct margin, proximal margin, and distal margin were uninvolved, but the pancreatic neck/parenchymal margin and the uncinated/retroperitoneal margin were both involved by invasive carcinoma. There was also involvement in 3 of 17 lymph nodes. Pathologic staging was pT2, pN1. His gallbladder, incidentally, showed marked chronic cholecystitis. Due to the involved surgical margins and the lymph node involvement, he was recommended to undergo postoperative chemoradiation. He began radiation concurrently with Xeloda on 06/27/2020. He completed treatment on 08/03/2020 to a total dose of 5040 cGy. He was significantly fatigued following the chemoradiation, but he otherwise tolerated it well. He had a follow-up visit Dr. Davidson's office on 09/20/2020. There was no evidence of recurrence by clinical evaluation or by CT scan. During his subsequent follow-up he had ongoing problems associated with ventral hernias. He had seen Dr. Davidson and had tentatively been scheduled to have hernia repair surgery. However, in the meantime, his laboratory studies done here on 02/03/2021 showed a significant increase in his CA 19-9 level from 19.50 U/mL in October up to 189.9 U/mL. Restaging CT scans of the chest, abdomen, and pelvis on 02/17/2021 showed cardiomegaly and several nonspecific mediastinal lymph nodes measuring up to 11 mm. There was no evidence of metastatic disease in the chest. The abdomen/pelvis showed an area of soft tissue thickening near some of the surgical clips just posterior to the SMA which appeared somewhat more prominent compared to previous study from 01/11/2021, measuring up to 20 mm short axis compared to 15 mm. There was no adenopathy or other evidence of metastatic disease. Further evaluation with PET/CT on 03/02/2021 focally increased activity associated with a 1.5 x 1.8 cm mass in the pancreatic body, maximum SUV 6.44. Also noted was focally increased metabolic activity in what appeared to be the uncinate process of the pancreas, maximum SUV 5.63. There were no other areas of abnormal uptake. The findings were consistent with tumor recurrence in the pancreas body and uncinate process. I had seen him for a follow-up visit on 03/08/2021. At that point he indicated that he was not interested in attempting any further chemotherapy. I did review the PET/CT findings with Dr. Davidson, and he indicated that the patient was not a candidate for any further surgical resection. I also requested further evaluation with next generation sequencing study, which showed no actionable mutations. The PD-L1 expression was negative and the tumor mutational burden was low. As I did not had any other treatment options to recommend, he opted to just continue with symptomatic/supportive care. He has seen for a follow-up visit. He continues to have fairly limited activity tolerance. Some days he is more tired than others. He is able to do some light work. ECOG score is 1. His appetite comes and goes. His main complaint is that when he eats everything tends to run right through him. For a little while it seemed to be improving, but recently it has got worse again. He has postprandial abdominal pain and pressure. He had fever after his Covid booster, that subsequently resolved. He otherwise has not had fever and he does not complain of night sweating. He always has sinus drainage. He has not had sore mouth or throat. He does not complain of cough. His breathing is sometimes rough. He occasionally has chest pain. Lately he has had a little more nausea, but it comes and goes. He has just occasional acid reflux, adequately managed with Tums. He has no complaints. He has some stiffness in his joints, but not much pain. He does not complain of headache. He sometimes has dizziness. He has some numbness/tingling in his hands. Medications: Acetaminophen 1 - 2 Tablet (of 500 mg) Oral at bedtime, tramadol 50 mg as needed. Allergies: No Known Allergies. Vital Signs: Performed on Sep 04, 2021 12:55 Height - 71.00 in Weight - 210.4 lbs (LOW) BSA - 2.15 sq.m BMI - 29.35 Temperature - 98.0 F (LOW) Pulse - 99 /min Respiration - 20 /min BP - 117/85 mm(hg) O2 Sat - 99 % Pain - 5 Fatigue - 3 Physical Examination: Constitutional - He appears somewhat weak generally, Eyes - Sclerae nonicteric. Conjunctivae clear, ENMT - No lesions noted in the oral cavity, Hematologic/Lymphatic - No cervical, clavicular, or axillary adenopathy, Respiratory - Lungs are clear with good air movement bilaterally, Cardiovascular - Heart rhythm is regular. There is no murmur, gallop, or rub noted, Abdomen - Mildy distended and tympanic. He has ventral hernias. Liver and spleen are not enlarged. There is no abdominal mass or ascites noted and there is no inguinal adenopathy, Extremities - Mild edema, Neurologic - No focal neurologic deficits noted. Lab/Imaging: Test performed on Sep 04, 2021 10:26 Sodium 139 mmol/L Potassium 3.9 mmol/L Chloride 108 mmol/L CO2 23 mmol/L Anion Gap 11.9 BUN 10 mg/dL Creatinine 0.8 mg/dL Cr Clearance (Est) 127.58 mL/min eGFR 97.6 mL/min Glucose 84 mg/dL Osmolality - Calculated 286 mOsm/kg Calcium 8.4 mg/dL Protein, Total 5.4 g/dL Albumin 2.9 g/dL Globulin 2.5 g/dL Bilirubin, Total 0.8 mg/dL ALT (SGPT) 32 U/L AST (SGOT) 31 U/L Alkaline Phosphatase 136 IU/L WBC 4.4 10 3/uL RBC 3.92 10 6/uL HGB 13.0 g/dL HCT 37.5 % MCV 95.7 fl MCH 33.2 pg MCHC 34.7 g/dL RDW 12.6 % Platelet Count 141 10 3/cmm MPV 10.2 fL Neutrophils 3.39 10 3/uL Lymphocytes 0.5 10 3/uL Monocytes 0.4 10 3/uL Eosinophils 0.1 10 3/uL Basophils 0.0 10 3/uL Neutrophil % 77.2 % Lymphocyte % 11.4 % Monocyte % 8.4 % Eosinophil % 2.3 % Basophils % 0.5 % NRBC % 0 % CA 19-9 1804 U/mL Problem List: 1. Well differentiated adenocarcinoma of the head of the pancreas, pathologic stage IIB (pT2, pN1, M0). 2. He underwent ERCP with placement of biliary stent on 11/03/2019, and on 12/01/2019 he underwent repeat ERCP with placement of partially covered metal stent and endoscopic ultrasound with FNA biopsy of pancreatic head mass. 3. From December through March 2020 he completed 6 cycles of neoadjuvant FOLFIRINOX chemotherapy. He required a dose reduction for neutropenia and neuropathy, but overall he tolerated the treatment well. 4. On 04/26/2020 he underwent exploratory laparotomy with pancreaticoduodenectomy, portal (abdominal) lymph node dissection, feeding jejunostomy, omental pedicle flap, and cholecystectomy. Pathology showed well-differentiated ductal adenocarcinoma measuring 3.3 cm in greatest dimension. There was involvement in 3/17 lymph nodes. In addition, the pancreatic neck/parenchymal and the uncinated/retroperitoneal margins were involved by invasive carcinoma. 5. Due to the involved surgical margins and the lymph node involvement, he was recommended to undergo postoperative radiation concurrently with Xeloda for chemosensitization. He began radiation on 06/27/2020. He completed treatment on 08/03/2020 to a total dose of 50[address] 6[address] His initial CT scans showed multiple small noncalcified pulmonary nodules bilaterally, ranging in size from 2 to 4 mm. These were nonspecific, but early metastatic disease was not excluded. These appeared stable on his 03/16/[address] scans. 7. Hypertension. 8. Allergic rhinitis. 9. GERD and history of peptic ulcer disease. Problems Addressed with this Encounter and Plan: Patient with well differentiated adenocarcinoma of the head of the pancreas, pathologic stage IIB (pT2, pN1, M0). His treatment included 6 cycles of neoadjuvant FOLFIRINOX chemotherapy followed by pancreaticoduodenectomy in April 2020. Pathology showed well-differentiated ductal adenocarcinoma measuring 3.3 cm in greatest dimension. There was involvement in 3/17 lymph nodes. In addition, the pancreatic neck/parenchymal and the uncinated/retroperitoneal margins were involved by invasive carcinoma. With evidence of lymph node involvement and with a positive surgical margin he was given postoperative chemoradiation. He completed treatment on 08/03/2020 to a total radiation dose of 5040 cGy. He began on expectant management following completion of the chemotherapy and radiation. During follow-up he had ongoing complaints associated with ventral abdominal hernias. He had been scheduled to undergo hernia repair surgery but his laboratory studies from 02/03/2021 showed a significant increase in his CA 19-9 level, to 189.9 units/mL compared to 19.50 units/mL in October. His restaging CT scans of the chest, abdomen, and pelvis on 02/17/2021 showed increased soft tissue thickening near some of the surgical clips just posterior to the SMA which had increased compared to a previous study from 01/11/2021. Taken together the increased tumor marker and CT changes are suspicious for recurrent tumor in the surgical bed. With those findings, his hernia repair surgery was canceled. Further evaluation with PET/CT on 03/02/2021 showed evidence of recurrence in the pancreatic body and uncinate process. There were no other areas of abnormal uptake noted on that study. Given the results of the PET CT scan, patient indicated that he was not wanting to attempt any further chemotherapy. Dr. Davidson had indicated that he was not a candidate for any further surgical resection. His next generation sequencing study showed no actionable mutations, and there were no findings to indicate potential benefit with immunotherapy. With no other treatment options available, he opted to just continue with symptomatic/supportive care. During follow-up he had initially continued to feel pretty good generally. However, he did show gradual decline in performance status. There has been continued increase in his CA 19-9 level, as expected. His main complaint, other than declining activity tolerance, has been postprandial abdominal discomfort and diarrhea. As such, I will have him try a pancreatic enzyme replacement, which will be ordered through hospice. His medications otherwise remain the same. I will see him again as needed. Signed By: Royal Solano M.D. <<Signature on File>>
== END 2021-09-04 09:42 | disposition home or self-care (01) ==
LOC: ONCMED 09:42
PROVIDERS: PCP Nurse Practitioner; Visit Provider Internal Medicine Medical Oncology
DX: C25.0 Malignant neoplasm of head of pancreas (principal); C77.8 Secondary and unspecified malignant neoplasm of lymph nodes of multiple regions; C78.01 Secondary malignant neoplasm of right lung; C78.02 Secondary malignant neoplasm of left lung; I10 Essential (primary) hypertension; J30.9 Allergic rhinitis, unspecified; K21.9 Gastro-esophageal reflux disease without esophagitis; Z87.11 Personal history of peptic ulcer disease; Z79.899 Other long term (current) drug therapy; Z92.21 Personal history of antineoplastic chemotherapy; Z92.3 Personal history of irradiation
CPT/HCPCS: 36591; 80053; 85025; 86301; 99214

== ENCOUNTER 2021-10-20 11:18 | Outpatient (CLI) | payer OTHER, SELFPAY ==
[2021-10-20 12:04] LABS: Basophils % 0.5 %; Eosinophils # 0.1 10^3/uL (0.0-0.8); Eosinophils % 3.3 %; Hematocrit 35.5 % (42.0-52.0); Hemoglobin 11.8 g/dL (11.7-16.6); Lymphocytes # 0.4 10^3/uL (0.8-4.8); Lymphocytes % 9.3 %; Mean Corpuscular HGB Conc 33.2 g/dL (30.0-36.0); Mean Corpuscular Hemoglobin 33.4 pg (28.0-34.0); Mean Corpuscular Volume 100.6 fl (80-94); Mean Platelet Volume 9.6 fL (7.4-10.4); Monocytes # 0.4 10^3/uL (0.2-0.9); Monocytes % 10.9 %; Neutrophils % 75.7 %; Nucleated Red Blood Cells % 0 %; Platelet Count 116 10^3/cmm (130-400); Red Blood Count 3.53 10^6/uL (4.1-5.3); Red Cell Distribution Width 13.9 % (12.1-15.1)
--- NOTE | 2021-10-20 12:16 | ONC FU_ITS ---
Dr. Solano Patient Follow-Up Note Patient: Gavino Ingram Unit #: [id number]: 1960 Dicatated By: Royal Solano M.D.Date of Visit:Oct 20, 2021 Onc Med Follow-up/Prog Note Chief Complaint: Pancreatic cancer. History of Present Illness: This is a 61 year-old man with adenocarcinoma of the pancreas, initially pathologic stage IIB (pT2, pN1, M0), but with subsequent recurrence. On 11/02/2019 he presented to the emergency room with jaundice. His total bilirubin at that time was 13.4 mg/dL. The liver enzymes were moderately elevated with alkaline phosphatase 257/130 IU/L, SGOT 98/40 U/L and SGPT 105/41 U/L. Abdominal CT scan showed significantly dilated biliary tree and common hepatic duct with a transition point at the common hepatic-common bile duct junction. The findings were suspicious for underlying stricture or occult mass. There were several mildly enlarged portacaval lymph nodes measuring up to 2 cm. He was transferred to [facility] for admission. On 11/03/2019 he underwent ERCP with placement of biliary stent. He was noted to have a malignant appearing stricture in the mid common bile duct, suspicious for pancreatic neoplasm. On 12/01/2019 he underwent repeat ERCP with placement of partially covered metal stent, and he underwent endoscopic ultrasound with FNA biopsy of a 3.5 x 2.7 cm mass lesion involving the head of the pancreas. The mass was noted to be in close proximity to the vessels but without overt infiltration. There was no celiac axis adenopathy appreciated. Cytology on the FNA biopsy was positive for adenocarcinoma. Staging CT scans of the chest, abdomen, and pelvis on 12/09/2019 showed multiple small bilateral noncalcified pulmonary nodules ranging in size from 2 to 4 mm. There was no evidence of metastatic involvement in the liver. A rounded focus surrounding the pancreatic head measuring 2.9 x 3.6 cm, including adjacent inflammatory changes, was noted to partially obscure a 3 x 1.7 cm pancreatic head mass which had been noted on the preoperative study. Also noted was a necrotic appearing mass/lymph node within the pancreatic head measuring 1.9 cm. A mildly prominent gastrohepatic lymph node measured 1.5 cm. There was no mesenteric adenopathy noted. He was seen by Dr. Davidson for surgical consultation, and then underwent placement of Port-A-Cath venous access device in preparation for neoadjuvant chemotherapy. I had seen him initially on 12/16/2019. As he was generally in good health and had excellent performance status, I had recommended a trial of neoadjuvant chemotherapy with FOLFIRINOX. He completed 6 cycles of treatment between December and March 2020. Toxicities included fatigue, neutropenia, and neuropathy. His cycle 3 had to be delayed by 2 weeks, and at that point he also required a dose reduction. Overall, though, he tolerated the treatment well. He did show a significant decline in his CA-19-9 level, from 339.2 U/mL to 124.4 U/mL. On 04/26/2020 he underwent exploratory laparotomy with pancreaticoduodenectomy, portal (abdominal) lymph node dissection, feeding jejunostomy, omental pedicle flap, and cholecystectomy. On visual inspection, the gallbladder appeared acutely inflamed. There also appeared to be a lot of inflammation in the pancreas, and there were 2 large cyst on his pancreas, consistent with probable pancreatitis. There is a significant desmoplastic reaction in the peritoneum. There was no gross evidence of metastatic disease. Pathology showed well-differentiated ductal adenocarcinoma measuring 3.3 cm in greatest dimension. The bile duct margin, proximal margin, and distal margin were uninvolved, but the pancreatic neck/parenchymal margin and the uncinated/retroperitoneal margin were both involved by invasive carcinoma. There was also involvement in 3 of 17 lymph nodes. Pathologic staging was pT2, pN1. His gallbladder, incidentally, showed marked chronic cholecystitis. Due to the involved surgical margins and the lymph node involvement, he was recommended to undergo postoperative chemoradiation. He began radiation concurrently with Xeloda on 06/27/2020. He completed treatment on 08/03/2020 to a total dose of 5040 cGy. He was significantly fatigued following the chemoradiation, but he otherwise tolerated it well. He had a follow-up visit Dr. Davidson's office on 09/20/2020. There was no evidence of recurrence by clinical evaluation or by CT scan. During his subsequent follow-up he had ongoing problems associated with ventral hernias. He had seen Dr. Davidson and had tentatively been scheduled to have hernia repair surgery. However, in the meantime, his laboratory studies done here on 02/03/2021 showed a significant increase in his CA 19-9 level from 19.50 U/mL in October up to 189.9 U/mL. Restaging CT scans of the chest, abdomen, and pelvis on 02/17/2021 showed cardiomegaly and several nonspecific mediastinal lymph nodes measuring up to 11 mm. There was no evidence of metastatic disease in the chest. The abdomen/pelvis showed an area of soft tissue thickening near some of the surgical clips just posterior to the SMA which appeared somewhat more prominent compared to previous study from 01/11/2021, measuring up to 20 mm short axis compared to 15 mm. There was no adenopathy or other evidence of metastatic disease. Further evaluation with PET/CT on 03/02/2021 focally increased activity associated with a 1.5 x 1.8 cm mass in the pancreatic body, maximum SUV 6.44. Also noted was focally increased metabolic activity in what appeared to be the uncinate process of the pancreas, maximum SUV 5.63. There were no other areas of abnormal uptake. The findings were consistent with tumor recurrence in the pancreas body and uncinate process. I had seen him for a follow-up visit on 03/08/2021. At that point he indicated that he was not interested in attempting any further chemotherapy. I did review the PET/CT findings with Dr. Davidson, and he indicated that the patient was not a candidate for any further surgical resection. I also requested further evaluation with next generation sequencing study, which showed no actionable mutations. The PD-L1 expression was negative and the tumor mutational burden was low. As I did not had any other treatment options to recommend, he opted to just continue with symptomatic/supportive care. He is seen for a follow-up visit. He had recently traveled to [place] with his . While he was there and particularly while on the way back home his symptoms had worsened significantly. He says he is feeling like crap. He has been much more fatigued, and his activity has declined. His ECOG score is 2. His appetite now is poor. He has not had fever or night sweats. He complains that he feels cold all the time. He has had a bad sore throat and he also has pain on the left side of his neck that feels like a knife sticking in it. He has some difficulty swallowing. He does not complain of cough but he is having shortness of breath now. He occasionally has chest pain, like someone standing on his chest. He has nausea and abdominal pain and swelling. His diarrhea has gotten a lot worse so that anything he eats tends to go right through him. He is having less urine output. He has pain in all of his joints. He has developed numbness in his hands and feet, and also in his mouth. Medications: Acetaminophen 1 - 2 Tablet (of 500 mg) Oral at bedtime Allergies: No Known Allergies. Vital Signs: Performed on Oct 20, 2021 11:35 Height - 71.00 in Weight - 219.2 lbs (HIGH) BSA - 2.19 sq.m BMI - 30.57 (HIGH) Temperature - 98.7 F Pulse - 101 /min (HIGH) Respiration - 18 /min BP - 123/82 mm(hg) O2 Sat - 99 % Pain - 7 Fatigue - 7 Physical Examination: Constitutional - He appears generally weak, Eyes - Sclerae nonicteric. Conjunctivae clear, ENMT - No lesions noted in the oral cavity, Hematologic/Lymphatic - There is a soft anterior cervical node on the left. There is no other adenopathy noted in the neck or axilla, Respiratory - Lungs are clear with good air movement bilaterally, Cardiovascular - Heart rhythm is regular. There is no murmur, gallop, or rub noted, Abdomen - Moderately distended, likely with ascites. He has ventral hernias. Liver and spleen do not appear enlarged. There is no abdominal mass noted and there is no inguinal adenopathy, Extremities - He has 2-3+ lower extremity edema, Neurologic - No focal neurologic deficits noted. Problem List: 1. Well differentiated adenocarcinoma of the head of the pancreas, pathologic stage IIB (pT2, pN1, M0). 2. He underwent ERCP with placement of biliary stent on 11/03/2019, and on 12/01/2019 he underwent repeat ERCP with placement of partially covered metal stent and endoscopic ultrasound with FNA biopsy of pancreatic head mass. 3. From December through March 2020 he completed 6 cycles of neoadjuvant FOLFIRINOX chemotherapy. He required a dose reduction for neutropenia and neuropathy, but overall he tolerated the treatment well. 4. On 04/26/2020 he underwent exploratory laparotomy with pancreaticoduodenectomy, portal (abdominal) lymph node dissection, feeding jejunostomy, omental pedicle flap, and cholecystectomy. Pathology showed well-differentiated ductal adenocarcinoma measuring 3.3 cm in greatest dimension. There was involvement in 3/17 lymph nodes. In addition, the pancreatic neck/parenchymal and the uncinated/retroperitoneal margins were involved by invasive carcinoma. 5. Due to the involved surgical margins and the lymph node involvement, he was recommended to undergo postoperative radiation concurrently with Xeloda for chemosensitization. He began radiation on 06/27/2020. He completed treatment on 08/03/2020 to a total dose of [address] 6[address] His initial [address] scans showed multiple small noncalcified pulmonary nodules bilaterally, ranging in size from 2 to 4 mm. These were nonspecific, but early metastatic disease was not excluded. These appeared stable on his 03/16/[address] scans. 7. Hypertension. 8. Allergic rhinitis. 9. GERD and history of peptic ulcer disease. Problems Addressed with this Encounter and Plan: Patient with well differentiated adenocarcinoma of the head of the pancreas, pathologic stage IIB (pT2, pN1, M0). His treatment included 6 cycles of neoadjuvant FOLFIRINOX chemotherapy followed by pancreaticoduodenectomy in April 2020. Pathology showed well-differentiated ductal adenocarcinoma measuring 3.3 cm in greatest dimension. There was involvement in 3/17 lymph nodes. In addition, the pancreatic neck/parenchymal and the uncinated/retroperitoneal margins were involved by invasive carcinoma. With evidence of lymph node involvement and with a positive surgical margin he was given postoperative chemoradiation. He completed treatment on 08/03/2020 to a total radiation dose of 5040 cGy. He began on expectant management following completion of the chemotherapy and radiation. During follow-up he had ongoing complaints associated with ventral abdominal hernias. He had been scheduled to undergo hernia repair surgery but his laboratory studies from 02/03/2021 showed a significant increase in his CA 19-9 level, to 189.9 units/mL compared to 19.50 units/mL in October. His restaging CT scans of the chest, abdomen, and pelvis on 02/17/2021 showed increased soft tissue thickening near some of the surgical clips just posterior to the SMA which had increased compared to a previous study from 01/11/2021. Taken together the increased tumor marker and CT changes are suspicious for recurrent tumor in the surgical bed. With those findings, his hernia repair surgery was canceled. Further evaluation with PET/CT on 03/02/2021 showed evidence of recurrence in the pancreatic body and uncinate process. There were no other areas of abnormal uptake noted on that study. Given the results of the PET CT scan, patient indicated that he was not wanting to attempt any further chemotherapy. Dr. Davidson had indicated that he was not a candidate for any further surgical resection. His next generation sequencing study showed no actionable mutations, and there were no findings to indicate potential benefit with immunotherapy. With no other treatment options available, he opted to just continue with symptomatic/supportive care. During follow-up he had initially continued to feel pretty good generally. However, he did show gradual decline in performance status and there was continued increase in his CA 19-9 level, as expected. He continued symptomatic/supportive care on hospice. He had recently traveled to [place] with his , and at that point he had revoked his hospice benefit. Upon his return, his overall condition has worsened significantly. He has increased abdominal pain and swelling, which I suspect is due to ascites, and he also has developed pretty severe lower extremity edema. He also has worsening postprandial diarrhea and has developed sore throat and pain on the left side of his neck. In the context of this recent decline, his overall prognosis is very poor, and he is appropriate for and agreeable to hospice care. I will recheck baseline laboratory studies including CBC, comprehensive metabolic profile, TSH level, and B12 level. He will be given empiric antibiotic coverage with Ceftin for the throat symptoms. At least for now he will just try Imodium 2 tablets up to 4 times daily as needed for the diarrhea. I will start diuretic therapy for the ascites and edema once I have verified his renal function and electrolytes. I will see him again as needed. Signed By: Royal Solano M.D. <<Signature on File>>
[2021-10-20 12:41] LABS: Alanine Aminotransferase 35 U/L (0-41); Albumin Level 2.8 g/dL (3.5-5.2); Alkaline Phosphatase 160 IU/L (40-130); Anion Gap 12.8 (5-19); Aspartate Amino Transferase 36 U/L (0-40); Blood Urea Nitrogen 10 mg/dL (8-23); Calcium 7.6 mg/dL (8.5-10.5); Carbon Dioxide 18 mmol/L (22-29); Chloride 113 mmol/L (98-107); Globulin 2.1 g/dL (1.3-4.6); Glomerular Filtration Rate 136.1 mL/min (90-130); Glucose 136 mg/dL (65-115); Osmolality Calculated 291 mOsm/kg (285-295); Potassium 3.8 mmol/L (3.5-5.1); Sodium 140 mmol/L (136-145); Total Bilirubin 0.6 mg/dL (0.15-1.2); Total Protein 4.9 g/dL (6.6-8.7)
[2021-10-20 13:09] LABS: Cancer Antigen 19 9 2087 U/mL (0-35)
[2021-10-20 13:38] LABS: Thyroid Stimulating Hormone 1.24 uIU/mL (0.27-4.20); Vitamin B12 448 pg/mL (232-1245)
== END 2021-10-20 11:19 | disposition home or self-care (01) ==
LOC: ONCMED 11:22
PROVIDERS: Visit Provider Internal Medicine Medical Oncology
DX: C25.0 Malignant neoplasm of head of pancreas (principal); Z90.411 Acquired partial absence of pancreas; C77.8 Secondary and unspecified malignant neoplasm of lymph nodes of multiple regions; R91.8 Other nonspecific abnormal finding of lung field; I10 Essential (primary) hypertension; J30.9 Allergic rhinitis, unspecified; K21.9 Gastro-esophageal reflux disease without esophagitis; K22.10 Ulcer of esophagus without bleeding; R19.7 Diarrhea, unspecified; R60.9 Edema, unspecified
CPT/HCPCS: 36591; 80053; 82607; 84443; 85025; 86301; 99215

== ENCOUNTER 2021-12-14 15:02 | Outpatient (CLI) | payer OTHER, SELFPAY ==
[2021-12-14 17:14] LABS: Anion Gap 12.6 (5-19); Blood Urea Nitrogen 11 mg/dL (8-23); Carbon Dioxide 20 mmol/L (22-29); Chloride 114 mmol/L (98-107); Glomerular Filtration Rate 167.9 mL/min (90-130); Glucose 111 mg/dL (65-115); Osmolality Calculated 298 mOsm/kg (285-295); Sodium 144 mmol/L (136-145)
[2021-12-14 17:36] LABS: Potassium 2.6 mmol/L (3.5-5.1)
== END 2021-12-14 15:03 | disposition home or self-care (01) ==
LOC: ONCMED 15:05
PROVIDERS: Visit Provider Internal Medicine Medical Oncology
DX: C25.0 Malignant neoplasm of head of pancreas (principal)
CPT/HCPCS: 80048